=== PATIENT | female | born 1950 | race Caucasian/White ===

== ENCOUNTER → 2017-11-08 09:46 | Outpatient (CLI) | payer MEDICARE, SELFPAY ==
--- NOTE | 2017-11-08 09:55 | CDU_ITS ---
Reason For Study: Carotid Stenosis Rt. Velocities/BP Lt. Velocities/BP Prox CCA 82/17 cm/sec. Prox CCA 108/32 cm/sec. Mid CCA 68/13 cm/sec. Mid CCA 80/33 cm/sec. Dist CCA 70/17 cm/sec. Dist CCA 180/63 cm/sec. Rt ICA: No Flow. Prox ICA 210/52 cm/sec. Prox ECA 107/25 cm/sec. Mid ICA 165/67 cm/sec. Rt. Vert. 21/8 cm/sec. Dist ICA 119/48 cm/sec. Lt. ICA/CCA = 2.62. Prox ECA 44/13 cm/sec. Lt. Vert. 116/34 cm/sec. Right Extracranial There is homogeneous, irregular atherosclerotic plaque noted in the right common carotid artery. There is heterogeneous, irregular atherosclerotic plaque noted in the right internal carotid artery. The right internal carotid artery is occluded. There is no significant atherosclerotic plaque noted in the right external carotid artery. Antegrade flow is noted in the right vertebral artery. Left Extracranial There is heterogeneous, smooth atherosclerotic plaque noted in the left common carotid artery. There is heterogeneous, irregular atherosclerotic plaque noted in the left internal carotid artery. There is heterogeneous, irregular atherosclerotic plaque noted in the left external carotid artery. Antegrade flow is noted in the left vertebral artery. Procedure Carotid Duplex 50020. Exam performed in department. Interpretation Summary Known occlusion right internal carotid artery. Patent right common carotid and external carotid arteries. 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 Ordering Physician: Kole Talavera Referring Physician: Fadia Gordon Performed By: Ally Winslow, KIRTI, RVT
== END ==
PROVIDERS: Family Provider Family Medicine; PCP Family Medicine; Visit Provider Surgery
DX: I65.29 Occlusion and stenosis of unspecified carotid artery (principal)
CPT/HCPCS: 93880

== ENCOUNTER → 2017-11-30 16:57 | Outpatient (CLI) | payer MEDICARE, SELFPAY ==
--- NOTE | 2017-11-30 16:57 | DT_ITS ---
This patient was seen during an EMR downtime November 29, 2017 - December 06, 2017. This patient may have a combination of paper and electronic documentation or all paper documentation. All documentation is viewable within the e-chart portion of [facility] for each patient visit.
[2017-12-07 18:02] LABS: AST(SGOT) 17 U/L (15-37); Alanine Aminotransfer ALT/SGPT 21 U/L (13-56); BUN 16 mg/dL (7-18); Calcium,Total 9.5 mg/dL (8.5-10.1); Cholesterol 149 mg/dL (200); Creatinine, Serum 0.89 mg/dL (0.55-1.02); EST Glomerular Filtration Rate 67 mL/min (>60); Est Glom Filt Rate - Afr Amer 81 mL/min (>60); Glucose 96 mg/dL (74-106)
[2017-12-07 18:03] LABS: Anion Gap 5 (5-15); Chloride 102 mmol/L (98-107); High Density Lipoprotein 56 mg/dL; Potassium 3.9 mmol/L (3.5-5.1); Sodium Level 138 mmol/L (136-145); Triglycerides 130 mg/dL; Very Low Density Lipoprotein 26 mg/dL (5-40)
== END ==
LOC: MTLAB 12-04 08:06 → MFPLAB 12-04 16:46
PROVIDERS: Family Provider Family Medicine; PCP Family Medicine; Visit Provider Family Medicine
DX: I10 Essential (primary) hypertension (principal); E78.5 Hyperlipidemia, unspecified
CPT/HCPCS: 36415; 80048; 80061; 84450; 84460

== ENCOUNTER → 2017-12-01 16:26 | Outpatient (CLI) | payer MEDICARE, SELFPAY ==
--- NOTE | 2017-12-01 16:26 | DT_ITS ---
This patient was seen during an EMR downtime November 29, 2017 - December 06, 2017. This patient may have a combination of paper and electronic documentation or all paper documentation. All documentation is viewable within the e-chart portion of [facility] for each patient visit.
--- NOTE | 2017-12-01 16:30 | CT_ITS ---
STUDY: CTA NECK WITH CONTRAST REASON FOR EXAM: Female, 67 years old. Carotid stenosis RADIATION DOSAGE (If Supplied By Facility): CTDIvol = ( 16.94 ) mGy, DLP = ( 556.32 ) mGycm TECHNIQUE: CT angiography with multi-detector data acquisition was performed from the aortic arch to the skull base following intravenous administration of 100ML ml of Isovue 370 contrast. MIP images were reconstructed from the axial data set. Post-processing of the angiographic images was performed, with multiplanar reformation and 3D reconstruction. Individualized dose optimization techniques were used for this CT. COMPARISON: There are no available comparison studies at this time. Images from July 26, 2012 are still unavailable.. FINDINGS: AORTIC ARCH: Normal visualized aortic arch. Normal origins of the brachiocephalic, left common carotid, and left subclavian arteries. RIGHT CAROTID ARTERIES: Normal right common carotid artery (CCA). Normal right common carotid bulb. There is occlusion of the carotid artery just distal to the bifurcation. There is no contrast within the cervical portion of the right internal carotid artery. There is no visualized contrast within the petrous carotid artery or within the right cavernous carotid artery. There is contrast within the right side A1 segment and MCA artery. There is vague demonstration of a right-sided P-comm. Normal origin of the right external carotid artery (ECA). LEFT CAROTID ARTERIES : There is plaque formation within the left distal common carotid artery. There is moderate focal narrowing. There is partial thrombosis of the left external carotid artery at the carotid bulb. Normal origin of the left internal carotid (ICA) artery without a hemodynamically significant stenosis. Normal there is visualized contrast within the left side cavernous carotid arteries minimal plaque formation. The bilateral posterior communicating arteries are not well visualized. There is a suggestion of a hypoplastic right-sided P-comm. Visualized cervical portion of the left internal carotid artery. There is a diminutive appearance of the left side ECA. VERTEBRAL ARTERIES: Normal bilateral vertebral arteries. The basilar artery is noted of normal caliber and enhancing. The bilateral superior cerebellar arteries and posterior communicating arteries appear patent. CT/CTA Neck W/WO Contrast IMPRESSION: The prior studies are unavailable. On prior report CTA neck July 26, 2012, greater than 70% stenosis was described in the right side. Now there is Occlusion of the right internal carotid artery just distal to the bifurcation. Nonvisualization of contrast within the right internal carotid artery cervical carotid artery petrous carotid artery and right cavernous carotid artery. There is reconstitution of the right side A1 segment. There is a diminutive P-comm. Recommend consideration for follow-up MRI/MRA of the brain. Findings are suspicious for less than 50% stenosis of the distal left common carotid artery near the carotid bulb. Recommend follow-up ultrasound. Diminutive left external carotid artery N.B. : The above information has been verbally conveyed by Alaina Pearson MD to Dr Siddiqui, Covering Physician, on 12/04/2017 17:48:50 (ET). Electronically Signed: Alaina Pearson MD at 17:12 EDT Tel , Service support , N.B. : The above information has been verbally conveyed by Alaina Pearson MD to Dr Siddiqui, Covering Physician, on 12/04/2017 17:48:50 (ET).
== END ==
PROVIDERS: Family Provider Family Medicine; PCP Family Medicine; Visit Provider Surgery
DX: I65.21 Occlusion and stenosis of right carotid artery (principal)
CPT/HCPCS: 70498; Q9967

== ENCOUNTER → 2018-01-17 15:35 | Outpatient (CLI) | payer MEDICARE, SELFPAY ==
--- NOTE | 2018-01-17 15:43 | BI_ITS ---
MAMMOGRAPHY - BILATERAL SCREENING 3-D MERY SYNTHESIS REASON FOR EXAM: Female, 67 years old. Bilateral Screening 3-D tomosynthesis PERTINENT HISTORY: No significant family history. TECHNIQUE: 2-D mammograms and 3-D Mery synthesis of the breast (s) were performed. CAD was performed. COMPARISON: 12/31/2015 FINDINGS: The breast composition is almost entirely fat. Scattered benign calcifications are seen. No dense spiculated masses or suspicious microcalcifications are identified. No architectural distortion is identified. There is no skin thickening or retraction. There has been no significant change since the prior study. BI/SCREENING MAMM (CAD), BILAT IMPRESSION: No mammographic signs of malignancy. Routine yearly mammograms recommended. ASSESSMENT CATEGORY: BIRADS Category 1: Negative. A letter regarding these results will be sent to the patient by the facility within 30 days. FOLLOW UP RECOMMENDATION: Yearly follow up mammogram recommended. (A) Approximately 10% of breast cancers are not detected by mammography. A normal mammogram should not delay biopsy of a clinically suspicious abnormality. Electronically Signed: Miguel Fam MD at 8:38 EDT , Service support ,
== END ==
PROVIDERS: Family Provider Family Medicine; PCP Family Medicine; Visit Provider Family Medicine
DX: Z00.00 Encounter for general adult medical examination without abnormal findings (principal); Z12.31 Encounter for screening mammogram for malignant neoplasm of breast
CPT/HCPCS: 77063; 77067

== ENCOUNTER → 2018-06-08 09:50 | Outpatient (CLI) | payer MEDICARE, SELFPAY ==
[2018-05-12 09:43] VITALS: BMI 31.1
--- NOTE | 2018-06-08 09:53 | CDU_ITS ---
Reason For Study: Carotid Stenosis Rt. Velocities/BP Lt. Velocities/BP Prox CCA 75/19.9 cm/sec. Prox CCA 58.6/18.8 cm/sec. Mid CCA 65.7/15.8 cm/sec. Mid CCA 68.6/24.6 cm/sec. Dist CCA 74.5/22.9 cm/sec. Dist CCA 181/52.4 cm/sec. Right ICA: No Flow. Prox ICA 194/58.9 cm/sec. Prox ECA 135/27.5 cm/sec. Mid ICA 148/58.9 cm/sec. Rt. Vert. 29.3/8.57 cm/sec. Dist ICA 69.2/31.7 cm/sec. Lt. ICA/CCA = 2.83. Prox ECA 62.9/22 cm/sec. Lt. Vert. 104/35.4 cm/sec. Right Extracranial There is homogeneous, irregular atherosclerotic plaque noted in the right common carotid artery. There is heterogeneous, irregular atherosclerotic plaque noted in the right internal carotid artery. The right internal carotid artery is occluded. There is intimal thickening but no significant atherosclerotic plaque noted in the right external carotid artery. Antegrade flow is noted in the right vertebral artery. Left Extracranial There is heterogeneous, smooth atherosclerotic plaque noted in the left common carotid artery. There is heterogeneous, smooth atherosclerotic plaque noted in the left internal carotid artery. There is heterogeneous, irregular atherosclerotic plaque noted in the left external carotid artery. Antegrade flow is noted in the left vertebral artery. Procedure Carotid Duplex [id number]. Exam performed in department. Interpretation Summary Patent post-operative right carotid bulb but with occluded right internal carotid. Normal flow right external carotid Moderate plague at the proximal left internal carotid with 50-69% stenosis. Normal flow left external carotid Patent and antegrade right vertebral Elevated velocity left vertebral Findings are not changed from 11/08/17 Ordering Physician: Kole Talavera Referring Physician: Fadia Gordon M.D. Performed By: Xochitl KIRTI, LINDA, Tierney and Student
--- OUTSIDE RECORDS SUMMARY | 2018-07-25 08:42 | XMS RPT_ITS ---
:1950 Author Organization [facility] Support Name Relationship Address Phone ELYSE DOTSON [address] + [place] [address] R Unavailable Unavailable Unavailable CHERELLE KRISHNA Unavailable [address] + [place] [address] ELYSE DOTSON Unavailable [address] + [place] [address] R Unavailable Unavailable Unavailable CHERELLE KRISHNA Unavailable [address] + [place] [address] ELYSE DOTSON Unavailable [address] + [place] [address] R Unavailable Unavailable Unavailable CHERELLE KRISHNA Unavailable [address] + [place] [address] ELYSE DOTSON Unavailable [address] + [place] [address] R Unavailable Unavailable Unavailable CHERELLE KRISHNA Unavailable [address] + [place] [address] ELYSE DOTSON Unavailable [address] + [place] [address] R Unavailable Unavailable Unavailable CHERELLE KRISHNA Unavailable [address] [phone] [place] [address] ELYSE DOTSON Unavailable [address] + [place] [address] R Unavailable Unavailable Unavailable CHERELLE KRISHNA Unavailable [address] [phone] [place] [address] ELYSE DOTSON Unavailable [address] + [place] [address] R Unavailable Unavailable Unavailable TOMI, CHERELLE Unavailable [address] + [place] [address] ELYSE DOTSON Unavailable [address] + [place] [address] R Unavailable Unavailable Unavailable FARAZBAUNIQUE, CHERELLE Unavailable [address] + [place] [address] ELYSE DOTSON Unavailable [address] + [place] [address] R Unavailable Unavailable Unavailable TOMI, CHERELLE Unavailable [address] + [place] [address] ELYSE DOTSON Unavailable [address] + [place] [address] R Unavailable Unavailable Unavailable TOMI, CHERELLE Unavailable [address] [phone] [place] [address] ELYSE DOTSON Unavailable [address] + [place] [address] R Unavailable Unavailable Unavailable FARAZBAUNIQUE, CHERELLE Unavailable [address] + [place] [address] Care Team Providers Name Role Phone Kole Talavera Attending Unavailable CebulKole Referring Unavailable Jolliff, Fadia Primary Care Unavailable CebulKole Attending Unavailable Cebul Kole Referring Unavailable Jolliff, Fadia Primary Care Unavailable CebulKole Consulting Unavailable CebulKole Attending Unavailable Cebul Kole Referring Unavailable Jolliff, Fadia Primary Care Unavailable Sylvia Michael Attending Unavailable Jolliff, Fadia Referring Unavailable Jolliff, Fadia Attending Unavailable Jolliff, Fadia Primary Care Unavailable CebulKole Attending Unavailable Jolliff, Fadia Referring Unavailable Cebul, Kole Attending Unavailable Jolliff, Fadia Referring Unavailable Jolliff, Fadia Attending Unavailable Jolliff, Fadia Primary Care Unavailable CebulKole Attending Unavailable Cebul, Kole Referring Unavailable Jolliff, Fadia Primary Care Unavailable Cebul, Kole Attending Unavailable Cebul, Kole Attending Unavailable Jolliff, Fadia Referring Unavailable Jolliff, Fadia Primary Care Unavailable PROBLEMS PROBLEMS DATE TYPE CONDITION / CODE ATTENDING STATUS SOURCE 06/08/2018 Unknown I65.23 - Occlusion Kole Talavera and stenosis of [facility] bilateral carotid Hospital arteries / Repository I65.23(ICD-10) 06/08/2018 Unknown Z98.62 - Kole Talavera Active [place] Peripheral [facility] vascular Hospital angioplasty status Repository / Z98.62(ICD-10) 01/18/2018 Unknown Z12.31 - Encounter Nicoleannette Fadia Benitez for screening [facility] mammogram for Hospital malignant neoplasm Repository of breast / Z12.31(ICD-10) 12/22/2017 Unknown I65.21 - Occlusion Kole Talavera Active [facility] and stenosis of [facility] right carotid Hospital artery / Repository I65.21(ICD-10) 12/22/2017 Unknown I10 - Essential Fadia Gordon Active [facility] (primary) Community hypertension / Hospital I10(ICD-10) Repository 04/07/2018 Unknown I65.29 - Occlusion Kole Talavera Active [place] and stenosis of [facility] unspecified Hospital carotid artery / Repository I65.29(ICD-10) PROCEDURES PROCEDURES No Procedure Records FoundRESULTS RESULTS CAROTID DUPLEX Observed: 06/08/2018 Status: F Source: [facility] ULTRASOUND 5:06 PM [facility] REPOSITORY [facility] Cardiovascular Services [address] [place] [address] Carotid Duplex Ultrasound 06/08/18 0956 MR#: [id number] Acct: [id number] Name: CELENA KRISHNA Rep #: [id number] : 1950 68 From: Kole Talavera MD Attending Dr: Kole Talavera MD Status: REG CLI Ordering Dr: Kole Talavera MD Date: 06/08/18 Location: [facility] Sex: F C Admitted: Reason For Study: Carotid Stenosis Rt. Velocities/BP Lt. Velocities/BP Prox CCA 75/19.9 cm/sec. Prox CCA 58.6/18.8 cm/sec. Mid CCA 65.7/15.8 cm/sec. Mid CCA 68.6/24.6 cm/sec. Dist CCA 74.5/22.9 cm/sec. Dist CCA 181/52.4 cm/sec. Right ICA: No Flow. Prox ICA 194/58.9 cm/sec. Prox ECA 135/27.5 cm/sec. Mid ICA 148/58.9 cm/sec. Rt. Vert. 29.3/8.57 cm/sec. Dist ICA 69.2/31.7 cm/sec. Lt. ICA/CCA = 2.83. Prox ECA 62.9/22 cm/sec. Lt. Vert. 104/35.4 cm/sec. Right Extracranial There is homogeneous, irregular atherosclerotic plaque noted in the right common carotid artery. There is heterogeneous, irregular atherosclerotic plaque noted in the right internal carotid artery. The right internal carotid artery is occluded. There is intimal thickening but no significant atherosclerotic plaque noted in the right external carotid artery. Antegrade flow is noted in the right vertebral artery. Left Extracranial There is heterogeneous, smooth atherosclerotic plaque noted in the left common carotid artery. There is heterogeneous, smooth atherosclerotic plaque noted in the left internal carotid artery. There is heterogeneous, irregular atherosclerotic plaque noted in the left external carotid artery. Antegrade flow is noted in the left vertebral artery. Procedure Carotid Duplex 69176. Exam performed in department. Interpretation Summary Patent post-operative right carotid bulb but with occluded right internal carotid. Normal flow right external carotid Moderate plague at the proximal left internal carotid with 50-69% stenosis. Normal flow left external carotid Patent and antegrade right vertebral Elevated velocity left vertebral Findings are not changed from 11/08/17 Ordering Physician: Kole Talavera Referring Physician: Fadia Gordon M.D. Performed By: Xochitl COTTO RVT, Carrie and Student 06/08/18 1705 Date Kole Talavera MD CC: Fadia Gordon MD; Kole Talavera MD Date Dictated: 06/08/18 0956 Date Transcribed: 06/08/181704 Tape Maker: Signed CARDIOLOGY VISIT Observed: 05/12/2018 Status: F Source: [facility] REPORT 11:09 AM [facility] REPOSITORY [facility] [address] [place] [address] OFFICE VISIT Date of Service: 05/12/18 MR#: [id number] Acct: [id number] Name: CELENA KRISHNA Rep #: [id number] : 1950 Provider: Michael Ward MD Age/Sex: 68/F Location: [facility] Status: Signed HPI HPI Chief Complaint: Follow-up visit. Details: CELENA KRISHNA, is a 68 F who presents to the office today for a follow-up visit. She is a lady with a history of hypertension, peripheral vascular disease status post right carotid endarterectomy who returns for a yearly follow-up visit. She denies any chest pain or shortness breath or paroxysmal nocturnal dyspnea pedal edema she has had no neck arm or jaw discomfort suggest angina. She has been compliant with all her medications. She tells me that she just saw the vascular surgeon recently and an ultrasound of her carotids were performed. Her physical exam demonstrates clear lung lopez regular rate and rhythm and no pedal edema. Intake Vital Signs05/12/18 Height 5 ft 2 in 05/12/18 Weight: 170 lb 05/12/18 Body Mass Index (BMI) 31.1 05/12/18 Blood Pressure 142/82 H 05/12/18 Blood Pressure Location Lt brachial Intake Visit Reasons: 1 Y FU Boatswains Mate Required: No Accompanied by: None Is patient in pain?: No Allergies No Known Allergies Allergy (Verified 05/12/18 09:45) Medications amlodipine 10 mg tablet 10 mg PO QDAY 11/18/17 [History Confirmed 05/12/18] lisinopril 40 mg tablet 40 mg PO QDAY 11/18/17 [History Confirmed 05/12/18] metoprolol succinate ER 50 mg tablet,extended release 24 hr 50 mg PO QDAY 11/18/17 [History Confirmed 05/12/18] aspirin 81 mg tablet,delayed release 81 mg PO BID tab 05/12/18 [History Confirmed 05/12/18] atorvastatin 40 mg tablet 40 mg PO DAILY 05/12/18 [History Confirmed 05/12/18] metformin 500 mg tablet 500 mg PO DAILY tab 05/12/18 [History Confirmed 05/12/18] multivitamin tablet 1 tab PO DAILY 05/12/18 [History Confirmed 05/12/18] PFSH Medical History HLD (hyperlipidemia) (Chronic) Essential (primary) hypertension (Chronic) Bilateral carotid artery stenosis (Resolved) Surgical History H/O tubal ligation (Resolved) Hx of carotid angioplasty (Resolved) Family History Father CAD (coronary artery disease) COPD (chronic obstructive pulmonary disease) Mother CVA (cerebral vascular accident) Hypertension Social History Smoking Status: Never smoker ROS Const Const: Negative for fatigue, weakness, night sweats, excessive sweating, frequent falls, headache(s) or daytime sleepiness Eyes Eyes: Negative for loss of peripheral vision, transient loss of vision, blind spots, double vision or blurry vision ENT ENT: Negative for headache(s), dizziness, balance problems, Nosebleed/epistaxis, tongue swelling or lip swelling Cardio Chest Pain: No Palpitations: No Edema: None Muscle aches with walking: None Resp Respiratory: Negative for SOB at rest, SOB orthopnea\SOB lying down, Cough, paroxysmal nocturnal dyspnea or SOB with activity GI GI: Negative nausea, vomiting, heartburn, black,tarry stools or bright, red blood in stools : Negative for hematuria Musc Musc: Negative for balance problems, muscle aches/ myalgia, muscle weakness or joint pain Skin Skin: Negative non-healing lesions, unusual bruising or rash Neuro Neuro: Negative for weakness, frequent falls, headache(s), double vision, dizziness, lightheadedness, orthostatic symptoms, blurry vision or lack of coordination [place] Hematologic/Lymphatic: Negative for easy bruising or easy bleeding Endo Endo: Negative for fatigue, excessive sweating, cold intolerance, heat intolerance, increased thirst/drinking or hair loss Psych Psych: Negative for anxiety or depression Allergy Allergy/Immunology: Negative for throat swelling, Negative for tongue swelling, Negative for hives, Negative for rash, Negative for lip swelling Cardiology Exam Const Appearance: cooperative, healthy appearing, well developed, well groomed and no acute distress Nutritional Appearance: well nourished and average body habitus Orientation: alert, awake and oriented x3 Head Head: normal to inspection, normocephalic and atraumatic Ears: hearing grossly normal bilaterally and external ears normal Nose: external nose normal, nasal mucous membranes and turbinates normal, nares normal, septum normal, no nasal discharge Face and Sinus: face symmetric Mouth: oral mucosae normal, tongue normal, oropharynx normal and moist mucous membranes Teeth and gingiva: dentition normal Throat: posterior oropharynx normal, tonsils normal and uvula midline Eyes General: appearance normal, both eyes and all related structures Eyelids: eyelids normal Conjunctivae: conjunctivae normal Pupils: PERRL, normal by confrontation and accommodation normal EOM: EOM intact bilaterally Neck Neck: normal visual inspection, trachea midline and no JVD JVD: +5 Carotids: normal carotid upstroke and bounding pulses Chest Chest inspection: normal inspection of the chest, symmetric chest movement and normal respiratory effort Auscultation: Bilateral: Clear to Auscultation Cardio Palpation: normal PMI Rate: regular rate Rhythm: regular rhythm Heart sounds: S1 normal, S2 normal and normal, physiologic split S2; negative rub, gallop or murmur GI GI: normal to inspection, soft, no hepatosplenomegaly and bowel sounds present Neuro General: alert, awake, oriented x3, no focal sensory deficit, gait normal and moves all extremities Skin Skin: no rashes or lesions noted Extremities Pulses: Normal: Right Femoral Pulse, Left Femoral Pulse, Right Dorsalis Pedis Pulse, Left Dorsalis Pedis Pulse, Right Posterior Tibial Pulse, Left Posterior Tibial Pulse, Right Radial Pulse, Left Radial Pulse Lower Extremity Edema: None: Bilateral Musculoskel Musculoskeletal: No joint tenderness Psych Psychological: normal affect Assessment AND Plan 1. Hx of carotid angioplasty Z98.62 Plan She does have a history of carotid disease and is status post surgery of the above. The recommendation will be for her to continue with yearly follow- up visits with the vascular surgeon. She will remain on lipid lowering therapy due to her underlying pathology. 2. Essential (primary) hypertension I10 Plan She does have a history of hypertension and her blood pressure appears to be under good control on the current medical therapy. She will remain on the amlodipine the lisinopril as well as the beta-maurice. 3. HLD (hyperlipidemia) E78.5 Plan She does have a history of hyperlipidemia. She is on high intensity statin. Her most recent lipid profile demonstrated a total cholesterol 149, LDL 67 and HDL of 56. No other changes will be made. I will continue to see her on a yearly visit. 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 3:43 PM [facility] REPOSITORY [facility] Imaging Services [address] [place] [id number] SCREENING MAMM (CAD), BILAT MR#: [id number] Acct: [id number] Name: CELENA KRISHNA Rep #: [id number] : 1950 F 67 From: Thomas Fam MD PCP: Fadia Gordon MD Status: [facility] Study: SCREENING MAMM (CAD), BILAT Date of Exam: 01/17/18 Exam# [id number] Ordering Dr: Fadia Gordon MD MAMMOGRAPHY - BILATERAL SCREENING 3-D SMITH SYNTHESIS REASON FOR EXAM: Female, 67 years old. Bilateral Screening 3-D tomosynthesis PERTINENT HISTORY: No significant family history. TECHNIQUE: 2-D mammograms and 3-D Smith synthesis of the breast (s) were performed. CAD was performed. COMPARISON: 12/31/2015 FINDINGS: The breast composition is almost entirely fat. Scattered benign calcifications are seen. No dense spiculated masses or suspicious microcalcifications are identified. No architectural distortion is identified. There is no skin thickening or retraction. There has been no significant change since the prior study. BI/SCREENING MAMM (CAD), BILAT IMPRESSION: No mammographic signs of malignancy. Routine yearly mammograms recommended. ASSESSMENT CATEGORY: BIRADS Category 1: Negative. A letter regarding these results will be sent to the patient by the facility within 30 days. FOLLOW UP RECOMMENDATION: Yearly follow up mammogram recommended. (A) Approximately 10% of breast cancers are not detected by mammography. A normal mammogram should not delay biopsy of a clinically suspicious abnormality. Electronically Signed: Miguel Fam MD at 8:38 EDT , Service support , CC: Fadia Gordon MD Tape Maker: Signed DOWNTIME REPORT Observed: 12/16/2017 Status: F Source: [facility] 1:47 PM [facility] REPOSITORY [facility] Medical Records Department [address] [place] [address] Downtime Report MR#: [id number] Acct: [id number] Name: FARAZJESSICATHEODORE CALHOUNRinku Garnett Rep #: [id number] : 1950 67 From: Rick Wilson PCP: Fadia Gordon MD Status: REG CLI This patient was seen during an EMR downtime November 29, 2017 - December 06, 2017. This patient may have a combination of paper and electronic documentation or all paper documentation. All documentation is viewable within the e-chart portion of [employer] for each patient visit. DOWNTIME REPORT Observed: 12/16/2017 Status: F Source: [facility] 12:01 PM [facility] REPOSITORY [facility] Medical Records Department [address] [place] [address] Downtime Report MR#: [id number] Acct: [id number] Name: CELENA KRISHNA Rep #: [id number] : 1950 67 From: Rick Wilson PCP: Fadia Gordon MD Status: REG CLI This patient was seen during an EMR downtime November 29, 2017 - December 06, 2017. This patient may have a combination of paper and electronic documentation or all paper documentation. All documentation is viewable within the e-chart portion of [employer] for each patient visit. CTA NECK W/WO Observed: 12/02/2017 Status: F Source: [facility] CONTRAST 8:04 PM [facility] REPOSITORY [facility] Imaging Services [address] [place] [address] CTA Neck W/WO Contrast MR#: [id number] Acct: [id number] Name: CELENA KRISHNA Rep #: [id number] : 1950 F 67 From: Alaina Pearson MD PCP: Fadia Gordon MD Status: REG CLI Study: CTA Neck W/WO Contrast Date of Exam: 12/01/17 Exam# [id number] Ordering Dr: Kole Talavera MD STUDY: CTA NECK WITH CONTRAST REASON FOR EXAM: Female, 67 years old. Carotid stenosis RADIATION DOSAGE (If Supplied By Facility): CTDIvol = ( 16.94 ) mGy, DLP = ( 556.32 ) mGycm TECHNIQUE: CT angiography with multi-detector data acquisition was performed from the aortic arch to the skull base following intravenous administration of 100ML ml of Isovue 370 contrast. MIP images were reconstructed from the axial data set. Post-processing of the angiographic images was performed, with multiplanar reformation and 3D reconstruction. Individualized dose optimization techniques were used for this CT. COMPARISON: There are no available comparison studies at this time. Images from July 26, 2012 are still unavailable.. FINDINGS: AORTIC ARCH: Normal visualized aortic arch. Normal origins of the brachiocephalic, left common carotid, and left subclavian arteries. RIGHT CAROTID ARTERIES: Normal right common carotid artery (CCA). Normal right common carotid bulb. There is occlusion of the carotid artery just distal to the bifurcation. There is no contrast within the cervical portion of the right internal carotid artery. There is no visualized contrast within the petrous carotid artery or within the right cavernous carotid artery. There is contrast within the right side A1 segment and MCA artery. There is vague demonstration of a right-sided P-comm. Normal origin of the right external carotid artery (ECA). LEFT CAROTID ARTERIES : There is plaque formation within the left distal common carotid artery. There is moderate focal narrowing. There is partial thrombosis of the left external carotid artery at the carotid bulb. Normal origin of the left internal carotid (ICA) artery without a hemodynamically significant stenosis. Normal there is visualized contrast within the left side cavernous carotid arteries minimal plaque formation. The bilateral posterior communicating arteries are not well visualized. There is a suggestion of a hypoplastic right-sided P-comm. Visualized cervical portion of the left internal carotid artery. There is a diminutive appearance of the left side ECA. VERTEBRAL ARTERIES: Normal bilateral vertebral arteries. The basilar artery is noted of normal caliber and enhancing. The bilateral superior cerebellar arteries and posterior communicating arteries appear patent. CT/CTA Neck W/WO Contrast IMPRESSION: The prior studies are unavailable. On prior report CTA neck July 26, 2012, greater than 70% stenosis was described in the right side. Now there is Occlusion of the right internal carotid artery just distal to the bifurcation. Nonvisualization of contrast within the right internal carotid artery cervical carotid artery petrous carotid artery and right cavernous carotid artery. There is reconstitution of the right side A1 segment. There is a diminutive P-comm. Recommend consideration for follow-up MRI/MRA of the brain. Findings are suspicious for less than 50% stenosis of the distal left common carotid artery near the carotid bulb. Recommend follow-up ultrasound. Diminutive left external carotid artery N.B. : The above information has been verbally conveyed by Alaina Pearson MD to Dr Siddiqui, Covering Physician, on 12/04/2017 17:48:50 (ET). Electronically Signed: Alaina Pearson MD at 17:12 EDT Tel , Service support , N.B. : The above information has been verbally conveyed by Alaina Pearson MD to Dr Siddiqui, Covering Physician, on 12/04/2017 17:48:50 (ET). CC: Fadia Gordon MD; Kole Talavera MD Tape Maker: Signed BASIC METABOLIC Collected: 11/30/2017 Status: F Source: [facility] PROFILE (BMP) 4:57 PM [facility] REPOSITORY Order Comment: RESULT(S) PREVIOUSLY REPORTED ON MANUAL REQUISITION DURING DOWNTIME. TYPE CODE TESTS RESULT OUT OF RANGE REFERENCE UNITS LAB L501.0100 74-106 mg/dL Normal GLU 96 Result Comment: Please note revised GLUCOSE reference range effective 2017. LAB L501.1000 7-18 mg/dL Normal BUN 16 LAB L501.1100 0.55-1.02 mg/dL Normal CREAT,SERUM 0.89 Result Comment: The validity of the calculated GFR AND GFRAA in patients over 70 years has not been determined. Clinical correlation is essential. LAB L501.1110 >60 mL/min Normal EST GFR 67 LAB L501.1115 >60 mL/min Normal EST GFR - AA 81 LAB L501.1300 10-20 RATIO Normal BUN/CRE 18.0 LAB L501.2200 8.5-10.1 mg/dL Normal CA 9.5 LAB L501.5300 136-145 mmol/L Normal NA 138 LAB L501.5600 3.5-5.1 mmol/L Normal K 3.9 LAB L501.5900 98-107 mmol/L Normal CL 102 LAB L501.6100 21.0-32.0 mmol/L Normal CO2 31.0 LAB L501.6200 5-15 Normal GAP 5 Performed By: #### L500.2500, L500.4100, L501.4100, L501.4405 #### [facility] [address] [place], [address] LIPID PROFILE Collected: 11/30/2017 Status: F Source: [facility] 4:57 PM [facility] REPOSITORY Order Comment: RESULT(S) PREVIOUSLY REPORTED ON MANUAL REQUISITION DURING DOWNTIME. TYPE CODE TESTS RESULT OUT OF RANGE REFERENCE UNITS LAB L501.4900 200 mg/dL Normal CHOL 149 Result Comment: <200 mg/dL Desirable 200-240 mg/dL Borderline >240 mg/dL High Risk LAB L501.5000 mg/dL Normal TRIG 130 Result Comment: The drugs N-Acetylcysteine and Metamizole may falsely depress this assay. Serum Triglycerides Reference Interval Normal <150 mg/dL Borderline high 150 - 199 mg/dL High 200 - 499 mg/dL Very High > or = 500 mg/dL LAB L501.6400 mg/dL Normal HDL 56 Result Comment: The drugs N-Acetylcysteine and Metamizole may falsely depress this assay. Reference Range HDL <40 mg/dL Low HDL Cholesterol HDL >or= 60 mg/dL High HDL Cholesterol LAB L501.6500 0-130 mg/dL Normal LDL 67 LAB L501.6600 5-40 mg/dL Normal VLDL 26 Performed By: #### L500.2500, L500.4100, L501.4100, L501.4405 #### [facility] Laboratory [address] [place], [place], [id number] AST(SGOT) Collected: 11/30/2017 Status: F Source: [facility] 4:57 PM [facility] REPOSITORY Order Comment: RESULT(S) PREVIOUSLY REPORTED ON MANUAL REQUISITION DURING DOWNTIME. TYPE CODE TESTS RESULT OUT OF RANGE REFERENCE UNITS LAB L501.4100 15-37 U/L Normal AST 17 Performed By: #### L500.2500, L500.4100, L501.4100, L501.4405 #### [facility] [address] [place], [place], [id number] ALANINE AMINOTRANSFERAS Collected: 11/30/2017 Status: F Source: [facility] (SGPT) 4:57 PM [facility] REPOSITORY Order Comment: RESULT(S) PREVIOUSLY REPORTED ON MANUAL REQUISITION DURING DOWNTIME. TYPE CODE TESTS RESULT OUT OF RANGE REFERENCE UNITS LAB L501.4405 13-56 U/L Normal ALT 21 Performed By: #### L500.2500, L500.4100, L501.4100, L501.4405 #### [facility] [facility] [address] [place], [place], [address] SURGERY VISIT REPORT Observed: 11/18/2017 Status: F Source: [facility] 6:37 PM [facility] REPOSITORY [facility] [address] [place] [address] OFFICE VISIT Date of Service: 11/18/17 MR#: [id number] Acct: [id number] Name: CELENA KRISHNA Rep #: [id number] : 1950 Provider: Kole Talavera MD Age/Sex: 67/F Location: [facility] Status: Signed Intake Vital Signs11/18/17 Height 5 ft 2 in 11/18/17 Weight: 170 lb Intake Visit Reasons: carotid yearly Boatswains Mate Required: No Is patient in pain?: No Allergies No Known Allergies Allergy (Verified 11/18/17 16:06) Medications amlodipine 10 mg tablet 10 mg PO QDAY 11/18/17 [History Confirmed 11/18/17] aspirin 81 mg tablet,delayed release 81 mg PO QDAY 11/18/17 [History Confirmed 11/18/17] atorvastatin 20 mg tablet 20 mg PO QDAY 11/18/17 [History Confirmed 11/18/17] calcium carb-magnesium oxide-vit D3 400 mg-167 mg-133 unit tablet tab PO 11/18/17 [History Confirmed 11/18/17] lisinopril 40 mg tablet 40 mg PO QDAY 11/18/17 [History Confirmed 11/18/17] metoprolol succinate ER 50 mg tablet,extended release 24 hr 50 mg PO QDAY 11/18/17 [History Confirmed 11/18/17] omega-3 fatty acids 1,000 mg capsule 1,000 mg PO QDAY 11/18/17 [History Confirmed 11/18/17] PFSH Medical History Bilateral carotid artery stenosis (Acute) Surgical History Hx of carotid angioplasty (Acute) Social History Smoking Status: Never smoker HPI HPI HPI: CELENA KRISHNA, is a 67 F who presents to the office today for surgical follow-up and consultation regarding bilateral extracranial carotid artery occlusive disease. August 24, 2012 I performed a right carotid endarterectomy with bovine patch angioplasty because of critical stenosis of the right external and internal carotid arteries. My operative note states that there were 2 areas of stenosis within the right internal carotid. The right carotid bulb was relatively low. A #10 USCI style shunt was placed. The plaque was felt to be nicely feathered. Plaque was further secured with a 7-0 Prolene tacking suture. Patch angioplasty was performed. On July 02, 2012 peak systolic velocity within the right internal carotid was 123 cm/s. Peak systolic velocity in the left internal carotid distally was 140 cm/s. Updated then September 02, 2016 her right internal carotid was now found to be completely occluded. She had remained asymptomatic. The peak systolic velocity within the left internal carotid at that time was 146 cm/s. The patient is on a chronic statin medication. She takes a low-dose aspirin every other day. She has never been a tobacco user. Her mother had a CVA and hypertension. In addition to her primary care physician Dr. Fadia Gordon the patient annually sees Dr. Winston because of her previous cardiac arrhythmia. On November 08, 2017 at the [facility] carotid duplex imaging was obtained. The right internal carotid is noted to be occluded. The right common carotid is patent as is the external carotid. The maximal velocity now located within the proximal left internal carotid is 210 cm/s peak systolic flow with end-diastolic velocity of 52 cm/s. This is felt to be consistent with 50-69% stenosis likely closer to the 69% range. There is normal flow in the left external carotid. Patient remains asymptomatic Exam Const General: cooperative, healthy appearing, comfortable, no acute distress [facility] Head: normal to inspection Eyes General: appearance normal, both eyes and all related structures Neck Other: Well-healed surgical incision right neck with slightly hypertrophic scarring. Carotids are 2+ bilateral lower in the neck. Soft 1/6 bruit on the left. Chest Chest palpation AND inspection: normal inspection of the chest Resp Effort AND Inspection: normal respiratory effort Auscultation: clear to auscultation bilaterally Cardio Rate: regular rate Rhythm: regular rhythm GI Palpation: soft, no hepatosplenomegaly Musc Cervical Spine: normal cervical lordosis Skin General: no rashes or lesions noted Neuro General: CN's II-XI intact bilaterally Extrem General: normal to inspection, no calf tenderness Psych Affect: normal affect Assessment AND Plan Problems 1. Carotid stenosis, bilateral I65.23 Plan I have discussed treatment options with the patient. I strongly recommend to her CT angiogram of the carotids. The patient will then return for further discussion. If the CTA demonstrates clinically significant stenosis of the left internal carotid then she will be given options of ongoing medical treatment versus left carotid endarterectomy with patch angioplasty locally versus referral for consultation regarding carotid endarterectomy versus carotid artery stenting. She has had an opportunity to ask and have questions answered. Although anxious she is comfortable with this method of approach. I appreciate the ongoing opportunity of assisting with her surgical care. Cc: Dr. Fadia Talavera M.D., F.A.C.S. Orders Orders: Coding Level of Care Code Off vis,est,level 3 Diagnoses Carotid stenosis, bilateral I65.23 11/18/17 1837 <Electronically signed by Kole Talavera MD> Date Kole Talavera MD Cosigner Signature: Date (if applicable) CC: Fadia Gordon MD CAROTID DUPLEX Observed: 11/18/2017 Status: F Source: [facility] ULTRASOUND 9:59 AM [facility] REPOSITORY [facility] Cardiovascular Services [address] [place] [address] Carotid Duplex Ultrasound 11/08/17 0955 MR#: [id number] Acct: [id number] Name: CELENA KRISHNA Rep #: [id number] : 1950 67 From: Kole Talavera MD Attending Dr: Kole Talavera MD Status: REG CLI Ordering Dr: Kole Talavera MD Date: 11/08/17 Location: [facility] Sex: F C Admitted: Reason For Study: Carotid Stenosis Rt. Velocities/BP Lt. Velocities/BP Prox CCA 82/17 cm/sec. Prox CCA 108/32 cm/sec. Mid CCA 68/13 cm/sec. Mid CCA 80/33 cm/sec. Dist CCA 70/17 cm/sec. Dist CCA 180/63 cm/sec. Rt ICA: No Flow. Prox ICA 210/52 cm/sec. Prox ECA 107/25 cm/sec. Mid ICA 165/67 cm/sec. Rt. Vert. 21/8 cm/sec. Dist ICA 119/48 cm/sec. Lt. ICA/CCA = 2.62. Prox ECA 44/13 cm/sec. Lt. Vert. 116/34 cm/sec. Right Extracranial There is homogeneous, irregular atherosclerotic plaque noted in the right common carotid artery. There is heterogeneous, irregular atherosclerotic plaque noted in the right internal carotid artery. The right internal carotid artery is occluded. There is no significant atherosclerotic plaque noted in the right external carotid artery. Antegrade flow is noted in the right vertebral artery. Left Extracranial There is heterogeneous, smooth atherosclerotic plaque noted in the left common carotid artery. There is heterogeneous, irregular atherosclerotic plaque noted in the left internal carotid artery. There is heterogeneous, irregular atherosclerotic plaque noted in the left external carotid artery. Antegrade flow is noted in the left vertebral artery. Procedure Carotid Duplex 00055. Exam performed in department. Interpretation Summary Known occlusion right internal carotid artery. Patent right common carotid and external carotid arteries. 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 Ordering Physician: Kole Talavera Referring Physician: Fadia Gordon Performed By: Ally Winslow RDCS, RVT 11/18/17957 Date Kole Talavera MD CC: Fadia Gordon MD; Kole Talavera MD Date Dictated: 11/08/17954 Date Transcribed: 11/18/17957 Tape Maker: Signed ALLERGIES ALLERGIES DATE TYPE / CODE NAME / CODE REACTION SEVERITY SOURCE 05/12/2018 Drug No Known Unknown [facility] Allergy/4160 Allergies/F00 Hospital 72512(SNOMED [id number](RXNOR Repository CT) M) ENCOUNTERS ENCOUNTERS ADMIT/DISCHARGE ACCOUNT ADMITTING ENCOUNTER LOCATION SOURCE NUMBER CLASS 06/08/2018 [id number] Ambulatory BMSBuilding:B [place] 0 [facility] Repository 06/08/2018 [id number] Ambulatory [place] [facility] ing:[facility] Repository 05/12/2018/ [id number] Ambulatory BMSBuilding:B [place] 8 8 [facility] Repository 01/17/2018 [id number] Ambulatory [place] 2 [facility] ing:[facility] Repository 12/10/2017 [id number] Ambulatory BMSBuilding:B [place] 1 [facility] Repository 12/03/2017 [id number] Ambulatory BMSBuilding:B [place] 3 [facility] Repository 12/01/2017 [id number] Ambulatory [place] [facility] Hospital ing:CT Repository 11/30/2017 [id number] Ambulatory [place] [facility] Hospital ing:MFPLAB Repository 11/18/2017/ [id number] Ambulatory BMSBuilding:B [place] 8 8 [facility] Repository 11/18/2017 [id number] Ambulatory BMSBuilding:B [place] 7 [facility] Repository 11/08/2017 [id number] Ambulatory [place] [facility] 3 Critical access hospital Hospital ing:[facility] Repository PAYERS PAYERS ENCOUNTER GUARANTOR PAYER SUBSCRIBER SOURCE 06/08/2018 CELENA L Primary CELENA L Eli [id number] [place] Insurance:RAQUEL OLIVEROS: [facility]ly [facility]: [id number] [id number] Repository [address]Qek: 330 Date:1328-49-43OI [phone] (ZW) [id number] [place] [phone]: 06/08/2018 Secondary NOT GIVENUNK Eli Insurance:SELF PAY [facility] Number: Effective Repository Date:2018-06-08 06/08/2018 CELENA L Primary CELENA L [place] [id number] [place] Insurance:AETNA WOLBAUGHDOB: Community DORITAValeria OHFFMANN [facility] Number: [id number], [place] [id number] Repository [address]Eee: (330) Date:3744-44-60UX [phone] () [id number] [place] [phone]: 06/08/2018 Secondary NOT GIVENUNK [place] Insurance:SELF PAY [facility] Number: Effective Repository Date:2018-06-06 05/12/2018 CELENA L Primary CELENA L [place] [id number] [place] Insurance:AETNA WOLBAUGHDOB: [facility]ly [facility] Number: [id number], [place] [id number] Repository [address]Brw: (330) Date:2617-58-81UO [phone] () [id number] [place] [address]RY: 05/12/2018 Secondary NOT GIVENUNK Eli Insurance:SELF PAY [facility] Number: Effective Repository Date:2018-05-06 01/17/2018 CELENA L Primary CELENA L Eli [id number] [place] Insurance:AETNA WOLBAUGHDOB: [facility] TAHIRA [facility]Policy Number: [id number], [place] [id number] Repository [address]Eyv: 330) Date:3912-16-77BZ [phone] () [id number] [place] [address]RD: 01/17/2018 Secondary NOT GIVENUNK Eli Insurance:SELF PAY [facility] Number: Effective Repository Date:2018-01-03 12/10/2017 CELENA L Primary CELENA L Eli [id number] [place] Insurance:AETNA WOLBAUGHDOB: Community DORITA HOFFMANN MCRPolicy Number: [id number], [place] [id number] Repository [address]Diu: (330) Date:9271-46-09BF [phone] (HP) [id number] [address]HD: 12/10/2017 Secondary NOT GIVENUNK [place] Insurance:SELF PAY [facility] Number: Effective Repository Date:2017-12-08 12/03/2017 CELENA L Primary CELENA L [place] [id number] [place] Insurance:AULTCAREPol WOLBAUGHDOB: [facility] DORITA HOFFMANN icy Number: [id number], [place] [id number] Repository [address]Seg: (141) e Date:6427-56-05HQ [phone] () [address] [address]LI: 12/03/2017 Secondary CELENA L [place] Insurance:AETNA WOLBAUGHDOB: [facility] MCRPolicy Number: [id number] County Medical CenterHBVF194SGarecwejs Repository Date:3224-20-88MI [id number] [address]OQ: 12/03/2017 Tertiary NOT GIVENUNK [place] Insurance:SELF PAY [facility] Number: Effective Repository Date:2017-11-18 12/01/2017 CELENA L Primary CELENA L Eli [id number] [place] Insurance:AETNA WOLBAUGHDOB: Community DORITA HOFFMANN MCRPolicy Number: [id number], [place] [id number] Repository [address]Erp: (330) Date:4375-71-08FR [phone] (HP) [id number] [place] [address]OG: 12/01/2017 Secondary NOT GIVENUNK [place] Insurance:SELF PAY [facility] Number: Effective Repository Date:2017-11-18 11/30/2017 CELENA L Primary CELENA L Eli [id number] [place] Insurance:AETNA WOLBAUGHDOB: Community DORITA DRAPPLE MCRPolicy Number: [id number], [place] [id number] Repository [address]Ubo: (330) Date:4251-10-59BJ [phone] () [id number] [address]KJ: 11/30/2017 Secondary NOT GIVENUNK Eli Insurance:SELF PAY [facility] Number: Effective Repository Date:2017-11-30 11/18/2017 CELENA L Primary CELENA L Eli [id number] [place] Insurance:AETNA WOLBAUGHDOB: [facility] HospitalVal[facility] GAYTANAPPLE MCRPolicy Number: [id number], [place] [id number] Repository [address]Hbx: (330) Date:5561-94-60RA [phone] () [id number] [place] [address]XB: 11/18/2017 Secondary NOT GIVENUNK Eli Insurance:SELF PAY [facility] Number: Effective Repository Date:2017-11-16 11/18/2017 CELENA L Primary CELENA L Eli [id number] [place] Insurance:AETNA WOLBAUGHDOB: Community DORITA DRAPPLE MCRPolicy Number: [id number], [place] [id number] Repository [address]Woe: (330) Date:4162-20-59EP [phone] () [id number] [address]WC: 11/18/2017 Secondary NOT GIVENUNK [place] Insurance:SELF PAY [facility] Number: Effective Repository Date:2017-11-18 11/08/2017 CELENA L Primary CELENA L [place] [id number] [place] Insurance:AETNA WOLBAUGHDOB: Community DORITA DRAPPLE MCRPolicy Number: [id number], [place] [id number] Repository [address]Opf: (330) Date:2422-59-62TZ [phone] (NF) [id number] [place] [address]PV: 11/08/2017 Secondary NOT GIVENUNK [place] Insurance:SELF PAY [facility] Number: Effective Repository Date:2017-11-02
== END ==
PROVIDERS: Family Provider Family Medicine; PCP Family Medicine; Referring Provider Surgery; Visit Provider Surgery
DX: I65.23 Occlusion and stenosis of bilateral carotid arteries (principal); Z98.62 Peripheral vascular angioplasty status
CPT/HCPCS: 93880

== ENCOUNTER → 2018-12-07 | Outpatient (CLI) | payer MEDICARE, SELFPAY ==
[2018-05-12 09:43] VITALS: BMI 31.1
--- NOTE | 2018-12-07 08:12 | CDU_ITS ---
Reason For Study: CAROTID STENOSIS Rt. Velocities/BP Lt. Velocities/BP Prox CCA 82.0/18.1 cm/sec. Prox CCA 114.9/45.5 cm/sec. Mid CCA 63.8/15.5 cm/sec. Mid CCA 72.4/27.4 cm/sec. Dist CCA 83.3/19.4 cm/sec. Dist CCA 207.0/67.1 cm/sec. KNOWN ICA OCCLUSION. Prox ICA 184.1/56.8 cm/sec. Prox ECA 138.0/28.3 cm/sec. Mid ICA 168.1/59.3 cm/sec. Rt. Vert. 29.2/12.2 cm/sec. Dist ICA 109.4/38.2 cm/sec. Lt. ICA/CCA = 184.1/72.4=2.5. Prox ECA 47.1/12.2 cm/sec. Lt. Vert. 139.9/32.1 cm/sec. Right Extracranial There is homogeneous, smooth atherosclerotic plaque noted in the right common carotid artery. KNOWN OCCLUSION. There is intimal thickening but no significant atherosclerotic plaque noted in the right external carotid artery. Antegrade flow is noted in the right vertebral artery. Left Extracranial There is heterogeneous, smooth atherosclerotic plaque noted in the left common carotid artery. There is heterogeneous, irregular atherosclerotic plaque noted in the left internal carotid artery. There is heterogeneous, irregular atherosclerotic plaque noted in the left external carotid artery. Antegrade flow is noted in the left vertebral artery. There is heterogeneous, irregular atherosclerotic plaque noted in the left bulb. Procedure Carotid Duplex 16820. Exam performed in department. Interpretation Summary Persistent occlusion right internal carotid <50% stenosis right external carotid Irregular plague within the left internal and external carotids 50-69% stenosis left internal carotid closer to the upper levels of this range <50% stenosis left external carotid Antegrade right vertebral with lower flow >50% stenosis left vertebral No significant change from 06/08/18 Ordering Physician: Kole Talavera Referring Physician: Fadia Gordon Performed By: Hali Schuler RDCS, RVT
== END | disposition home or self-care (01) ==
PROVIDERS: Family Provider Family Medicine; PCP Family Medicine; Referring Provider Surgery; Visit Provider Surgery
DX: I65.23 Occlusion and stenosis of bilateral carotid arteries (principal)
CPT/HCPCS: 93880

== ENCOUNTER → 2019-05-30 16:33 | Outpatient (CLI) | payer MEDICARE, SELFPAY ==
[2019-05-16 07:25] VITALS: BMI 32.0
[2019-05-30 18:07] LABS: AST(SGOT) 17 U/L (15-37); Alanine Aminotransfer ALT/SGPT 27 U/L (13-56); Albumin, Serum 4.2 g/dL (3.2-5.0); Alkaline Phosphatase 126 U/L (45-117); Anion Gap 8 (5-15); BUN 16 mg/dL (7-18); BUN/Creat Ratio 19.4 RATIO (10-20); Calcium,Total 9.6 mg/dL (8.5-10.1); Chloride 101 mmol/L (98-107); Cholesterol 169 mg/dL (200); Creatinine, Serum 0.83 mg/dL (0.55-1.02); EST Glomerular Filtration Rate 73 mL/min (>60); Est Glom Filt Rate - Afr Amer 88 mL/min (>60); Glucose 116 mg/dL (74-106); High Density Lipoprotein 60 mg/dL; Potassium 3.6 mmol/L (3.5-5.1); Protein, Total 8.2 g/dL (6.4-8.2); Sodium Level 140 mmol/L (136-145); Triglycerides 163 mg/dL; Very Low Density Lipoprotein 33 mg/dL (5-40)
== END ==
PROVIDERS: Family Provider Family Medicine; PCP Family Medicine; Referring Provider Family Medicine; Visit Provider Family Medicine
DX: E11.9 Type 2 diabetes mellitus without complications (principal); I10 Essential (primary) hypertension; E78.5 Hyperlipidemia, unspecified
CPT/HCPCS: 36415; 80048; 80061; 80076

== ENCOUNTER → 2019-07-10 12:10 | Outpatient (CLI) | payer MEDICARE, SELFPAY ==
[2018-05-12 09:43] VITALS: BMI 31.1
[2019-05-16 07:25] VITALS: BMI 32.0
--- NOTE | 2019-07-10 12:14 | BI_ITS ---
MAMMOGRAPHY - BILATERAL SCREENING REASON FOR EXAM: Female, 69 years old. Routine annual screening examination. PERTINENT HISTORY: Non-contributory. TECHNIQUE: Digital bilateral breast mery (3D mammographic acquisition) in the CC and MLO projections. 2-D mediolateral oblique (MLO) and craniocaudad (CC) views of both breasts were obtained. CAD: Full Field Digital Mammography with Computer Added Detection was performed. COMPARISON: Comparison is made with prior study dated January 17, 2018 and December 31, 2015. FINDINGS: Breast Composition: There are scattered areas of fibroglandular density. There is a 1.1 cm x 0.8 cm asymmetrical density in the deep midportion of the left breast. Correlation with ultrasound is recommended. No other significant abnormalities are identified. BI/SCREEN MAMM (CAD) W/MERY BILAT IMPRESSION: 1.1 cm x 0.8 cm asymmetrical density in the deep midportion of the left breast as described. Correlation with ultrasound is recommended. ASSESSMENT CATEGORY: BIRADS Category 0: Incomplete. Need additional imaging evaluation. A letter regarding these results will be sent to the patient by the facility within 30 days. Approximately 10% of breast cancers are not detected by mammography. A normal mammogram should not delay biopsy of a clinically suspicious abnormality. [id number] Electronically Signed: Travis Persaud, at 13:32 EST , Service support ,
== END ==
PROVIDERS: Family Provider Family Medicine; PCP Family Medicine; Referring Provider Family Medicine; Visit Provider Family Medicine
DX: Z00.00 Encounter for general adult medical examination without abnormal findings (principal); Z12.31 Encounter for screening mammogram for malignant neoplasm of breast
CPT/HCPCS: 77063; 77067

== ENCOUNTER → 2019-07-11 09:45 | Outpatient (CLI) | payer MEDICARE, SELFPAY ==
[2019-05-16 07:25] VITALS: BMI 32.0
--- NOTE | 2019-07-11 09:48 | US_ITS ---
STUDY: ULTRASOUND BREAST - LEFT REASON FOR EXAM: Female, 69 years old. Abnormal screening mammogram. TECHNIQUE: Axial and longitudinal images of the LEFT breast were performed with a high resolution ultrasound transducer. # OF IMAGES: 90 COMPARISON: Comparison is made with prior mammogram dated July 10, 2019. FINDINGS: LEFT Breast: The retroareolar region as well as the inner quadrant of the left breast was examined by ultrasound. No sonographic abnormality is seen. Additional mammographic views will be obtained. US/Breast Limited Unilateral IMPRESSION: No sonographic abnormality is seen. Additional mammographic views will be obtained. ASSESSMENT CATEGORY: BIRADS Category 0: Incomplete. Need additional imaging evaluation. A letter regarding these results will be sent to the patient by the facility within 30 days. Electronically Signed: Travis Persaud, at 10:09 EST , Service support ,
--- NOTE | 2019-07-11 11:12 | BI_ITS ---
MAMMOGRAPHY - UNILATERAL DIAGNOSTIC: LEFT BREAST REASON FOR EXAM: Female, 69 years old. Asymmetrical density in the left breast. PERTINENT HISTORY: TECHNIQUE: Compression spot views of the left breast in the mediolateral oblique and craniocaudad views were obtained. CAD: Full Field Digital Mammography with Computer Added Detection was performed. COMPARISON: Comparison is made with the prior mammogram dated January 17, 2018 and July 10, 2019. FINDINGS: Breast Composition: There are scattered areas of fibroglandular density. Persistent 1.1 cm x 0.8 cm density in the deep central portion of the breast. The ultrasound did not show any abnormality. A biopsy is recommended for further evaluation. No other significant abnormalities are identified. BI/DIAG MAMM W/CAD, UNILAT IMPRESSION: Persistent asymmetrical density in the deep midportion of the left breast as described. Targeted biopsy is recommended. ASSESSMENT CATEGORY: BIRADS Category 4: Suspicious - Biopsy Should Be Considered. A letter regarding these results will be sent to the patient by the facility within 30 days. Approximately 10% of breast cancers are not detected by mammography. A normal mammogram should not delay biopsy of a clinically suspicious abnormality. Electronically Signed: Travis Persaud, at 12:33 EST , Service support ,
== END ==
PROVIDERS: Family Provider Family Medicine; PCP Family Medicine; Referring Provider Family Medicine; Visit Provider Family Medicine
DX: N64.89 Other specified disorders of breast (principal)
CPT/HCPCS: 76642; 77065

== ENCOUNTER → 2019-07-20 12:01 | Outpatient (CLI) | payer MEDICARE, SELFPAY ==
--- NOTE | 2019-07-14 03:28 | HP_ITS ---
Intake Vital Signs 07/14/19 Height 5 ft 2 in 07/14/19 Weight: 179 lb 07/14/19 BMI 32.7 07/14/19 BP 160/87 H 07/14/19 Blood Pressure Location Rt brachial 07/14/19 Position Sitting 07/14/19 Respiration 16 Intake Visit Reasons: Left Breast Birads 4 Chief Complaint: Follow-up visit. 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 Is patient in pain?: No Allergies No Known Allergies Allergy (Verified 07/14/19 14:06) Medications amlodipine 10 mg tablet 10 mg PO QDAY 11/18/17 [History Confirmed 07/14/19] lisinopril 40 mg tablet 40 mg PO QDAY 11/18/17 [History Confirmed 07/14/19] metoprolol succinate 50 mg tablet,extended release 24 hr 50 mg PO QDAY 11/18/17 [History Confirmed 07/14/19] aspirin 81 mg tablet,delayed release 81 mg PO BID tab 05/12/18 [History Confirmed 07/14/19] atorvastatin 40 mg tablet 40 mg PO DAILY 05/12/18 [History Confirmed 07/14/19] metformin 500 mg tablet 500 mg PO DAILY tab 05/12/18 [History Confirmed 07/14/19] multivitamin 1 tab PO DAILY 05/12/18 [History Confirmed 07/14/19] PFSH Medical History Bilateral carotid artery stenosis (Resolved) Essential (primary) hypertension (Chronic) HLD (hyperlipidemia) (Chronic) Obesity (Chronic) Type 2 diabetes mellitus (Chronic) Surgical History H/O tubal ligation (Resolved) History of right-sided carotid endarterectomy (Resolved 2012) Family History Father CAD (coronary artery disease) COPD (chronic obstructive pulmonary disease) Mother CVA (cerebral vascular accident) Hypertension Social History (Updated 07/14/19 @ 15:28 by Kole Talavera MD) Smoking Status: Never smoker HPI HPI HPI: CELENA KRISHNA, is a 69 F who presents to the office today for HPI HPI Surgical H&P: Yes HPI: CELENA KRISHNA, is a 69 F who presents to the office today for surgical consultation regarding abnormal left breast mammogram. The patient is referred by her primary care physician Dr. Fadia Gordon and a written copy of my surgical consult and recommendations will be returned to her 69-year-old female. G2, . Menarche at age 14. First child was born when she was 27. Menopause somewhere between age 46 and 49. She did not breast- feed. No history of previous breast biopsies. No estrogen replacement. Family history is negative for breast cancer. At the [facility] on July 10, 2019 she had screening mammography. There was felt to be a 1.1 x 0.8 cm asymmetric density deep midportion left breast. BI-RADS Category 0. On July 11 2019 she had diagnostic left mammogram and left breast ultrasound. The diagnostic mammogram showed the persistent density. The ultrasound did not demonstrate a lesion. The patient has not been able to detect any clinical changes her self. It is of note that this area appears to been present on her previous mammogram of January 17, 2018. There is not a direct radiology comment regarding that It is pertinent that the patient has extracranial carotid artery occlusive disease. My note of January 17, 2019 reflects the following history 68F who presents to the office today for surgical follow-up and consultation regarding bilateral extracranial carotid artery occlusive disease. August 24, 2012 I performed a right carotid endarterectomy with bovine patch angioplasty because of critical stenosis of the right external and internal carotid arteries. My operative note states that there were 2 areas of stenosis within the right internal carotid. The right carotid bulb was relatively low. A #10 [employer] style shunt was placed. The plaque was felt to be nicely feathered. Plaque was further secured with a 7-0 Prolene tacking suture. Patch angioplasty was performed. On July 02, 2012 peak systolic velocity within the right internal carotid was 123 cm/s. Peak systolic velocity in the left internal carotid distally was 140 cm/s. Updated then September 02, 2016 her right internal carotid was now found to be completely occluded. She had remained asymptomatic. The peak systolic velocity within the left internal carotid at that time was 146 cm/s. The patient is on a chronic statin medication. She takes a low-dose aspirin every other day. She has never been a tobacco user. Her mother had a CVA and hypertension. In addition to her primary care physician Dr. Fadia Gordon the patient annually sees Dr. Winston because of her previous cardiac arrhythmia. On November 08, 2017 at the [facility] carotid duplex imaging was obtained. The right internal carotid is noted to be occluded. The right common carotid is patent as is the external carotid. The maximal velocity now located within the proximal left internal carotid is 210 cm/s peak systolic flow with end-diastolic velocity of 52 cm/s. This is felt to be consistent with 50-69% stenosis likely closer to the 69% range. There is normal flow in the left external carotid. Patient remains asymptomatic ROS General General: No weight change, appetite, fatigue, colon cancer or breast cancer HEENT HEENT: No difficulty swallowing, eye injury, eye surgery, swollen glands or hoarseness Endo Endocrine: No thyroid disease, diabetes mellitus, thyroid cancer, Hair loss, heat intolerance or cold intolerance Skin Skin: No rash or changing moles Breast Breast: No left breast lump, right breast lump, nipple discharge, breast pain, abnormal mammogram, abnormal US or breast enlargement Musc Musculoskeletal: No back problems, arthritis, rheumatoid arthritis, gout or joint pain Cardio Cardiovascular: Yes high blood pressure; no murmur, pacemaker, heart disease, atrial fibrillation, heart attack, heart stent, palpitations, shortness of breat with exertion or chest pain Psych Psychiatric: No depression, anxiety or hearing voices Resp Respiratory: No shortness of breath, No sleep apnea, No cough, No COPD, No asthma, No emphysema, No wheezing Gastro Gastrointestinal: No abdominal pain, No nausea or vomiting, No diarrhea, No constipation, No blood in stool, No acid reflux, No hemorrhoids, No ulcers, No gallbladder problem, No black,tarry stools [place] Hematologic: No blood thinners, No blood disorders, No bleeding, No anemia, No blood clots Exam Const General: cooperative, healthy appearing, comfortable Nutritional Appearance: overweight Orientation: alert, awake HENWA Head: normal to inspection Chest Breast Palpation: No nipple discharge Other: Right breast: No focal mass. No nipple discharge. No axillary or clavicular adenopathy Left breast: No focal mass. No nipple discharge. No axillary or clavicular adenopathy Resp Effort & Inspection: normal respiratory effort Auscultation: clear to auscultation bilaterally Cardio Rate: regular rate Rhythm: regular rhythm Heart Sounds: no murmurs GI Palpation: soft, no hepatosplenomegaly Auscultation: normal bowel sounds Neuro Cognition: normal cognition Extrem General: no calf tenderness bilaterally Psych Affect: normal affect Assessment & Plan Problems 1. Abnormal mammogram of left breast R92.8 Plan I am recommending the patient is stereotactic needle core biopsy deep upper left breast. With her present we have discussed the technique, benefit, risk, alternatives. She has had an opportunity to ask and have questions answered. I will have her hold her aspirin 3 days prior. The extracranial carotid artery occlusive disease has been referenced above. CC: Dr Fadia Talavera M.D., F.A.C.S. Coding Level of Care Code Off vis,est,level 3 Diagnoses Abnormal mammogram of left breast R92.8 07/14/19 1528 <Electronically signed by Kole gallegos MD> Date _ Kole Talavera MD I have re-examined the patient. There are no clinical changes since date of exam.
[2019-07-14 14:06] VITALS: BMI 32.0
--- NOTE | 2019-07-20 | IMM_PTH ---
PATIENT: CELENA KRISHNA LOC: [facility] U#:[id number] AGE/SX: 75/F ROOM: RE07/20/[address]: Dr. Kole Talavera MD : 1950 BED: DIS: SPEC #: [id number] RECD: 07/21/19 10:16 STATUS: LORRAINE REQ #: [id number] AYESHA: 07/20/19 00:[address]: Kole Talavera DEPT: IMMUNOHISTOCHEMISTRY RECD BY: Mariela Branch ENTERED: 07/21/19 10:17 SP TYPE: IMMUNO OTHR DR: Dr. Fadia Gordon MD Tissues: Left breast, NOS Procedures: CALPONIN-1 (add) CK8 (add) E-CAD (add) HER2 RADHA (add) HI (add) P40 (add) ER (initial) PHYSICIAN & INSTITUTION [place] [id number] SPECIMEN INFORMATION: Tissue Source: Left breast Clinical Info: Asymmetric density deep mid portion left breast Specimen Number: [id number] #1 & 2 CPT code: 69021, 40400 x5, 24633 x3 METHODOLOGY: Deparaffinized sections of prefer/formalin-fixed tissue or PAP/DQ stained slides are incubated with monoclonal/polyclonal antibodies/oligonucleotide probes. Localization is made via biotin free immunoperoxidase method. Appropriate controls are performed and reacted as expected. Results on target cell population are indicated in the following table: RESULTS: ANTIBODY / CLONE RESULT Block 1 P40 (BC28) positive Calponin-1 (HT780D) positive Block 2 E-Cad (ECH-6) positive CK8 (72ebenO17) positive Calponin-1 (OZ563B) positive P40 (BC28) positive MORPHOMETRIC ANALYSIS ER (clone 6F11) positive, >95%, strong intensity HI (clone 16/1E2) positive, >95%, strong intensity Her-2Neu (clone CB11) negative (0) The prognostic test for HER2 is performed on formalin-fixed paraffin embedded tissue. A 3+ (positive) staining pattern is defined as intense, homogeneous, complete, circumferential membranous staining in >10% of contiguous tumor cells. A similar weak (2+) staining pattern is interpreted as equivocal. [place] follow-up testing is recommended for all equivocal cases. Positivity/negativity for ER/HI is reported if > or < 1% of the tumor cells are immuno- reactive, respectively. The ASCO/CAP criteria is used for scoring. Reference: Journal of Clinical Oncology, 2013; 31:5040-9886 & 2010; 16:8240-3865. Duration of fixation: 7 Hrs; Sample Adequate: Yes. These assays have not been validated on decalcified tissues. Results should be interpreted with caution given the likelihood of false negativity on decalcified specimens. These tests were developed and their performance characteristics determined by [facility]. They may not have been cleared or approved by the U.S. Food and Drug Administration. The FDA has determined that such clearance or approval is not necessary. The above immunohistochemical/dualISH markers are ordered and reviewed by the Pathologist. 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 SJ:joanne 07/21/19 Case has been reviewed in consultation with Dr. Rothman who concurs with the above diagnosis. IDC:AM
--- NOTE | 2019-07-20 12:30 | BRBX_PTH ---
PATIENT: CELENA KRISHNA LOC: [facility] U#:[id number] AGE/SX: 75/F ROOM: RE07/20/[address]: Dr. Kole Talavera MD : 1950 BED: DIS: SPEC #: [id number] RECD: 07/20/19 13:20 STATUS: LORRAINE REAlden #: [id number] AYESHA: 07/20/19 12:[address]: Kole Talavera DEPT: SURGICAL PATHOLOGY RECD BY: Chriss Payne ENTERED: 07/20/19 14:04 SP TYPE: BREAST BX OTHR DR: Dr. Fadia Gordon MD Tissues: Left breast, NOS Procedures: Surgery Specimen Level IV HEADER OPERATION: Left breast stereotactic biopsy PRE-OP DIAGNOSIS: Asymmetric density deep mid portion left breast TISSUE SUBMITTED: Left breast ISCHEMIC TIME: 1 minute FIXATION TIME: 7 hours MICROSCOPIC DIAGNOSIS Left breast, deep mid portion, stereotactic core biopsy: Ductal carcinoma in situ with the following characteristics: Pattern - cribriform and papillary Nuclear Grade - 2 (intermediate) Necrosis - not identified Calcifications - not identified See comment. ALEENA:joanne 07/21/19 COMMENT Immunohistochemistry ([id number]) supports the above diagnosis. The hormone receptor studies ([id number]) will be reported separately. Case has been reviewed in consultation with Dr. Rothman who concurs with the above diagnosis. IDC:AM MICROSCOPIC DESCRIPTION Slides are reviewed. GROSS DESCRIPTION Received is one container labeled with the patient's name and not further designated. The specimen consists of multiple elongated fragments of mckinney-yellow fibroadipose tissue that in aggregate measure 6 x 3 x 0.3 cm. The entire specimen is submitted in three cassettes. / ALEENA:joanne 07/20/19 TC0 CPT: 91502
--- NOTE | 2019-07-20 12:44 | OP.PCM_ITS ---
Problem List (1) Abnormal mammogram of left breast Status: Acute Report of Operation Date of Procedure: 07/20/19 Pre-Operative Diagnosis: Vague density medial mid left breast Post-Operative Diagnosis: Same Surgery/Procedure Performed:: Stereotactic needle core left breast biopsy Description of Surgical Findings:: Timeout and informed consent was obtained. 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 digital information was obtained on a single target site the breast was prepped with Betadine 1% lidocaine was used as local anesthetic. A total of 10 cc was used. A small stab incision is created. 8 gauge resolved needle was advanced to prefire depth. Prefire films were obtained demonstrating adequate localization. 6 cores were obtained. Marking clip was left at 12 o'clock position. The specimens were immediately transferred to formalin. On fast view demonstrated the marking clip to be in good position. She was released from the device and pressure was held for hemostasis. Steri-Strips Telfa OpSite dressing applied. Follow-up cc view was obtained. No apparent complications blood loss minimal. She was given activity wound care instructions. Further office follow-up will be pending pathology. Specimens breast cores. Drains none. Blood loss minimal. Kole Talavera M.D., F.A.C.S. Type of Anesthesia:: Local
== END ==
PROVIDERS: PCP Family Medicine; Referring Provider Surgery; Visit Provider Surgery
DX: D05.12 Intraductal carcinoma in situ of left breast (principal); I10 Essential (primary) hypertension; E78.5 Hyperlipidemia, unspecified; E66.9 Obesity, unspecified; Z68.32 Body mass index [BMI] 32.0-32.9, adult; E11.9 Type 2 diabetes mellitus without complications; Z79.84 Long term (current) use of oral hypoglycemic drugs; Z79.82 Long term (current) use of aspirin; Z79.899 Other long term (current) drug therapy
CPT/HCPCS: 19081; 88305; 88341; 88342; J7050

== ENCOUNTER 2019-08-04 09:18 | Day surgery (SDC) | payer MEDICARE, SELFPAY ==
--- NOTE | 2019-07-14 03:28 | HP_ITS ---
Intake Vital Signs 07/14/19 Height 5 ft 2 in 07/14/19 Weight: 179 lb 07/14/19 BMI 32.7 07/14/19 BP 160/87 H 07/14/19 Blood Pressure Location Rt brachial 07/14/19 Position Sitting 07/14/19 Respiration 16 Intake Visit Reasons: Left Breast Birads 4 Chief Complaint: Follow-up visit. 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 Is patient in pain?: No Allergies No Known Allergies Allergy (Verified 07/14/19 14:06) Medications amlodipine 10 mg tablet 10 mg PO QDAY 11/18/17 [History Confirmed 07/14/19] lisinopril 40 mg tablet 40 mg PO QDAY 11/18/17 [History Confirmed 07/14/19] metoprolol succinate 50 mg tablet,extended release 24 hr 50 mg PO QDAY 11/18/17 [History Confirmed 07/14/19] aspirin 81 mg tablet,delayed release 81 mg PO BID tab 05/12/18 [History Confirmed 07/14/19] atorvastatin 40 mg tablet 40 mg PO DAILY 05/12/18 [History Confirmed 07/14/19] metformin 500 mg tablet 500 mg PO DAILY tab 05/12/18 [History Confirmed 07/14/19] multivitamin 1 tab PO DAILY 05/12/18 [History Confirmed 07/14/19] PFSH Medical History Bilateral carotid artery stenosis (Resolved) Essential (primary) hypertension (Chronic) HLD (hyperlipidemia) (Chronic) Obesity (Chronic) Type 2 diabetes mellitus (Chronic) Surgical History H/O tubal ligation (Resolved) History of right-sided carotid endarterectomy (Resolved 2012) Family History Father CAD (coronary artery disease) COPD (chronic obstructive pulmonary disease) Mother CVA (cerebral vascular accident) Hypertension Social History (Updated 07/14/19 @ 15:28 by Kole Talavera MD) Smoking Status: Never smoker HPI HPI HPI: CELENA KRISHNA, is a 69 F who presents to the office today for HPI HPI Surgical H&P: Yes HPI: CELENA KRISHNA, is a 69 F who presents to the office today for surgical consultation regarding abnormal left breast mammogram. The patient is referred by her primary care physician Dr. Fadia Gordon and a written copy of my surgical consult and recommendations will be returned to her 69-year-old female. G2, . Menarche at age 14. First child was born when she was 27. Menopause somewhere between age 46 and 49. She did not breast- feed. No history of previous breast biopsies. No estrogen replacement. Family history is negative for breast cancer. At the [facility] on July 10, 2019 she had screening mammography. There was felt to be a 1.1 x 0.8 cm asymmetric density deep midportion left breast. BI-RADS Category 0. On July 11 2019 she had diagnostic left mammogram and left breast ultrasound. The diagnostic mammogram showed the persistent density. The ultrasound did not demonstrate a lesion. The patient has not been able to detect any clinical changes her self. It is of note that this area appears to been present on her previous mammogram of January 17, 2018. There is not a direct radiology comment regarding that It is pertinent that the patient has extracranial carotid artery occlusive disease. My note of January 17, 2019 reflects the following history 68F who presents to the office today for surgical follow-up and consultation regarding bilateral extracranial carotid artery occlusive disease. August 24, 2012 I performed a right carotid endarterectomy with bovine patch angioplasty because of critical stenosis of the right external and internal carotid arteries. My operative note states that there were 2 areas of stenosis within the right internal carotid. The right carotid bulb was relatively low. A #10 USCI style shunt was placed. The plaque was felt to be nicely feathered. Plaque was further secured with a 7-0 Prolene tacking suture. Patch angioplasty was performed. On July 02, 2012 peak systolic velocity within the right internal carotid was 123 cm/s. Peak systolic velocity in the left internal carotid distally was 140 cm/s. Updated then September 02, 2016 her right internal carotid was now found to be completely occluded. She had remained asymptomatic. The peak systolic velocity within the left internal carotid at that time was 146 cm/s. The patient is on a chronic statin medication. She takes a low-dose aspirin every other day. She has never been a tobacco user. Her mother had a CVA and hypertension. In addition to her primary care physician Dr. Fadia Gordon the patient annually sees Dr. Winston because of her previous cardiac arrhythmia. On November 08, 2017 at the [facility] carotid duplex imaging was obtained. The right internal carotid is noted to be occluded. The right common carotid is patent as is the external carotid. The maximal velocity now located within the proximal left internal carotid is 210 cm/s peak systolic flow with end-diastolic velocity of 52 cm/s. This is felt to be consistent with 50-69% stenosis likely closer to the 69% range. There is normal flow in the left external carotid. Patient remains asymptomatic ROS General General: No weight change, appetite, fatigue, colon cancer or breast cancer HEENT HEENT: No difficulty swallowing, eye injury, eye surgery, swollen glands or hoarseness Endo Endocrine: No thyroid disease, diabetes mellitus, thyroid cancer, Hair loss, heat intolerance or cold intolerance Skin Skin: No rash or changing moles Breast Breast: No left breast lump, right breast lump, nipple discharge, breast pain, abnormal mammogram, abnormal US or breast enlargement Musc Musculoskeletal: No back problems, arthritis, rheumatoid arthritis, gout or joint pain Cardio Cardiovascular: Yes high blood pressure; no murmur, pacemaker, heart disease, atrial fibrillation, heart attack, heart stent, palpitations, shortness of breat with exertion or chest pain Psych Psychiatric: No depression, anxiety or hearing voices Resp Respiratory: No shortness of breath, No sleep apnea, No cough, No COPD, No asthma, No emphysema, No wheezing Gastro Gastrointestinal: No abdominal pain, No nausea or vomiting, No diarrhea, No constipation, No blood in stool, No acid reflux, No hemorrhoids, No ulcers, No gallbladder problem, No black,tarry stools [place] Hematologic: No blood thinners, No blood disorders, No bleeding, No anemia, No blood clots Exam Const General: cooperative, healthy appearing, comfortable Nutritional Appearance: overweight Orientation: alert, awake HENAL Head: normal to inspection Chest Breast Palpation: No nipple discharge Other: Right breast: No focal mass. No nipple discharge. No axillary or clavicular adenopathy Left breast: No focal mass. No nipple discharge. No axillary or clavicular adenopathy Resp Effort & Inspection: normal respiratory effort Auscultation: clear to auscultation bilaterally Cardio Rate: regular rate Rhythm: regular rhythm Heart Sounds: no murmurs GI Palpation: soft, no hepatosplenomegaly Auscultation: normal bowel sounds Neuro Cognition: normal cognition Extrem General: no calf tenderness bilaterally Psych Affect: normal affect Assessment & Plan Problems 1. Abnormal mammogram of left breast R92.8 Plan I am recommending the patient is stereotactic needle core biopsy deep upper left breast. With her present we have discussed the technique, benefit, risk, alternatives. She has had an opportunity to ask and have questions answered. I will have her hold her aspirin 3 days prior. The extracranial carotid artery occlusive disease has been referenced above. CC: Dr Fadia Talavera M.D., F.A.C.S. Coding Level of Care Code Off vis,est,level 3 Diagnoses Abnormal mammogram of left breast R92.8 07/14/19 1528 <Electronically signed by Kole gallegos MD> Date _ Kole Talavera MD I have re-examined the patient. There are no clinical changes since date of exam.
--- NOTE | 2019-07-31 04:03 | HP_ITS ---
Intake Vital Signs 07/31/19 Height 5 ft 2 in 07/31/19 Weight: 178 lb 4 oz 07/31/19 BMI 32.5 07/31/19 BP 139/82 H 07/31/19 Blood Pressure Location Rt brachial 07/31/19 Position Sitting 07/31/19 Respiration 20 H 07/31/19 Pulse 71 07/31/19 Pulse Oximetry (%) 99 Intake Visit Reasons: discuss path Chief Complaint: discuss surgery Marketing Systems Analyst Required: No Is patient in pain?: No Allergies No Known Allergies Allergy (Verified 07/31/19 14:53) Medications amlodipine 10 mg tablet 10 mg PO QDAY 11/18/17 [History Confirmed 07/31/19] lisinopril 40 mg tablet 40 mg PO QDAY 11/18/17 [History Confirmed 07/31/19] metoprolol succinate 50 mg tablet,extended release 24 hr 50 mg PO QDAY 11/18/17 [History Confirmed 07/31/19] aspirin 81 mg tablet,delayed release 81 mg PO BID tab 05/12/18 [History Confirmed 07/31/19] atorvastatin 40 mg tablet 40 mg PO DAILY 05/12/18 [History Confirmed 07/31/19] metformin 500 mg tablet 500 mg PO DAILY tab 05/12/18 [History Confirmed 07/31/19] multivitamin 1 tab PO DAILY 05/12/18 [History Confirmed 07/31/19] Is last menstrual period known: No Post menopausal: Yes Patient : No PFSH Surgical History H/O tubal ligation (Resolved) History of right-sided carotid endarterectomy (Resolved 2012) Family History Father CAD (coronary artery disease) COPD (chronic obstructive pulmonary disease) Mother CVA (cerebral vascular accident) Hypertension Social History (Updated 07/31/19 @ 16:04 by Kole Talavera MD) Smoking Status: Never smoker HPI HPI HPI: CELENA KRISHNA, is a 69 F who presents to the office today for HPI HPI Surgical H&P: Yes HPI: CELENA KRISHNA, is a 69 F who presents to the office today for for ongoing surgical consultation regarding a left breast density deep central upper left breast. On July 20, 2019 I performed a stereotactic needle core biopsy of this density. 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 Cribriform and papillary. Nuclear grade to intermediate. No necrosis. No microcalcifications. Estrogen receptor was positive at greater than 95%. Progesterone receptor was positive at greater than 95%. HER-2/naga was negative. This was based upon preoperative imaging demonstrating a vague 1.1 x 0.8 cm density on mammogram which was not seen on ultrasound. She tolerated the biopsy well. She notes is very small hematoma medial left breast. She also has history of the extracranial carotid artery occlusive disease which is being conservatively followed. ROS General General: No weight change, appetite, fatigue, colon cancer or breast cancer HEENT HEENT: No difficulty swallowing, eye injury, eye surgery, swollen glands or hoarseness Endo Endocrine: No thyroid disease, diabetes mellitus, thyroid cancer, Hair loss, heat intolerance or cold intolerance Skin Skin: No rash or changing moles Breast Breast: No left breast lump, right breast lump, nipple discharge, breast pain, abnormal mammogram, abnormal US or breast enlargement Musc Musculoskeletal: No back problems, arthritis, rheumatoid arthritis, gout or joint pain Cardio Cardiovascular: Yes high blood pressure; no murmur, pacemaker, heart disease, atrial fibrillation, heart attack, heart stent, palpitations, shortness of breat with exertion or chest pain Psych Psychiatric: No depression, anxiety or hearing voices Resp Respiratory: No shortness of breath, No sleep apnea, No cough, No COPD, No asthma, No emphysema, No wheezing Gastro Gastrointestinal: No abdominal pain, No nausea or vomiting, No diarrhea, No constipation, No blood in stool, No acid reflux, No hemorrhoids, No ulcers, No gallbladder problem, No black,tarry stools [place] Hematologic: No blood thinners, No blood disorders, No bleeding, No anemia, No blood clots Exam Chest Breast Palpation: No nipple discharge Cardio Heart Sounds: no murmurs Assessment & Plan Problems 1. Ductal carcinoma in situ (DCIS) of left breast D05.12 Plan DCIS mid medial central left breast. This was based upon a vague density seen on mammogram and ultrasound. No microcalcifications. The pathology does not demonstrate an aggressive pattern nor is invasive carcinoma identified. With the patient's present I have described a stereotactic wire localization with wire localized excisional biopsy. I have discussed technique, benefit, risk, alternatives. No guarantees of success have been offered. We discussed the potential for final pathology did not demonstrate invasive carcinoma. We discussed the technique, benefit, risk, alternatives of a left axillary sentinel lymph node biopsy. My concern is that this is not a 0 risk procedure adding the sentinel node biopsy and that it does carry morbidity. The patient and her have had an opportunity to ask and have questions answered. I will have them see hematology oncology preoperatively. We will tentatively schedule and expedite her surgery at her request. I appreciate the ongoing opportunity of assisting with her surgical care Cc: Dr. Fadia Gordon and Dr. Lisa Talavera M.D., F.A.C.S. 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
[2019-08-01 10:07] VITALS: BMI 32.8
[2019-08-04] VITALS (7 sets, daily range): BP systolic 85–150; BP diastolic 55–94; PULSE 54–68; RESP 12–16; TEMP 36.1–36.6; O2SAT 94–100; BMI 33.4
--- NOTE | 2019-08-04 | BRBX_PTH ---
PATIENT: CELENA KRISHNA LOC: [facility] [place]#:[id number] AGE/SX: 69/F ROOM: RE08/04/[address]: Dr. Kole Talavera MD : 1950 BED: DIS: 08/04/2019 SPEC #: [id number] RECD: 08/04/19 12:19 STATUS: LORRAINE REAlden #: [id number] AYESHA: 08/04/19 00:[address]: Kole Talavera DEPT: SURGICAL PATHOLOGY RECD BY: Mariela Branch ENTERED: 08/04/19 13:34 SP TYPE: BREAST BX OTHR DR: Dr. Fadia Gordon MD Tissues: Left breast, NOS Procedures: Surgery Specimen Level V HEADER OPERATION: Left breast lumpectomy PRE-OP DIAGNOSIS: DCIS left breast D05.12 TISSUE SUBMITTED: Left breast lumpectomy, short suture - superior, long suture - lateral, hematoma represents deep margin MICROSCOPIC DIAGNOSIS Left breast, lumpectomy with needle localization: Ductal carcinoma in situ. See cancer summary below. SJ:joanne 08/09/19 DUCTAL CARCINOMA IN SITU SUMMARY Procedure - excision with needle localization Specimen laterality - left Tumor site - density deep mid portion Specimen - partial breast Size (extent of DCIS): 0.7 x 0.5 cm (measured microscopically) Number of blocks with DCIS - 1 Number of blocks examined - 12 Histologic type - ductal carcinoma in situ Architectural pattern - cribriform Nuclear grade - grade 1 (low) Necrosis - not identified Margin - margin uninvolved by DCIS Distance from closest margin - the tumor is 0.5 cm away from the closest superior margin. Regional lymph nodes - no lymph nodes submitted or found. Additional Pathologic Findings - - fibrocystic change and intraductal hyperplasia with focal atypia. - Skin, dermal fibrosis consistent with scar. - Changes consistent with previous biopsy site. Ancillary Studies from previous specimen ([id number] / [id number]): ER - positive (>95%, strong intensity) AR - positive (>95%, strong intensity) Her2 naga ([facility]) - negative (0) Microcalcifications - not identified Clinical history - Please make reference to previous specimen ([id number]) left breast, deep mid portion, stereotactic core biopsy with diagnosis of ductal carcinoma in situ. Radiologic findings - density area in the deep central portion of the breast. Pathologic Staging: pTis(DCIS) pNx Mx The above summary is in compliance with [employer] [place] Pathology (CAP) Cancer Protocols Checklist and [place] Joint Committee on Cancer (AJCC), Staging Manual, 8th Ed. COMMENT Case has been reviewed in consultation with Dr. Rothman who concurs with the above diagnosis. IDC:AM MICROSCOPIC DESCRIPTION Slides are reviewed. GROSS DESCRIPTION Received fresh for intraoperative consultation labeled with the patient's name is a specimen designated left breast lumpectomy. The specimen consists of a piece of fibroadipose tissue with needle localization measuring 7.5 x 7 x 3 cm. A piece of skin is noted anteriorly measuring 1.5 x 0.5 cm. The specimen is oriented as short suture - superior, long suture - lateral and the hematoma represents the deep margin. The specimen is inked as follows: anterior - yellow, posterior - black, superior - blue, inferior - green, medial - red and lateral - orange. Serial sections reveal a biopsy cavity measuring 3.5 x 0.5 cm and is 0.5 cm away from the closest superior margin. This information is conveyed to the surgeon intraoperatively. The rest of the specimen reveals mckinney-yellow adipose cut surfaces with scant fibrous areas. A separate piece of the tissue is also noted close to the posterior margin which measures 4 x 2.5 x 1 cm. Regional Commercial Sales Manager sections are submitted in 12 cassettes as follows: 1 - skin entirely submitted, perpendicular anterior and posterior margin, 2 - perpendicular medial, lateral and inferior margin, 310??contains the biopsy cavity, (a few cassettes also contain the closest superior margin), 11 & 12 - representative personal service sections away from the biopsy cavity. Sections will be submitted after additional fixation. / ALEENA:joanne 08/07/19 TC:0 CPT: 88908, 53943
[2019-08-04] MEDS: Lactated Ringers 1,000 ML 100 ML IV (09:43)
--- NOTE | 2019-08-04 10:30 | BI_ITS ---
SURGICAL BREAST SPECIMEN RADIOGRAPH CLINICAL: Document presence of tissue clip marker in biopsy specimen. FINDINGS: Specimen shows presence of tissue clip marker. Pathology is pending and an addendum to the biopsy report will be performed after the final pathologic diagnosis is rendered. Electronically Signed: Miguel Fam MD at 8:17 EST , Service support , BI/Breast Biopsy Specimen
--- NOTE | 2019-08-04 11:16 | HP.PCM_ITS ---
Problem List (1) Ductal carcinoma in situ (DCIS) of left breast Status: Acute History and Physical Date of Admission: 08/04/19 Intake Visit Reasons: discuss path Chief Complaint: discuss surgery Laboratory Technology Teacher Required: No Is patient in pain?: No Allergies No Known Allergies Allergy (Verified 07/31/19 14:53) Medications amlodipine 10 mg tablet 10 mg PO QDAY 11/18/17 [History Confirmed 07/31/19] lisinopril 40 mg tablet 40 mg PO QDAY 11/18/17 [History Confirmed 07/31/19] metoprolol succinate 50 mg tablet,extended release 24 hr 50 mg PO QDAY 11/18/17 [History Confirmed 07/31/19] aspirin 81 mg tablet,delayed release 81 mg PO BID tab 05/12/18 [History Confirmed 07/31/19] atorvastatin 40 mg tablet 40 mg PO DAILY 05/12/18 [History Confirmed 07/31/19] metformin 500 mg tablet 500 mg PO DAILY tab 05/12/18 [History Confirmed 07/31/19] multivitamin 1 tab PO DAILY 05/12/18 [History Confirmed 07/31/19] Is last menstrual period known: No Post menopausal: Yes Patient : No PFSH Surgical History H/O tubal ligation (Resolved) History of right-sided carotid endarterectomy (Resolved 2012) Family History Father CAD (coronary artery disease) COPD (chronic obstructive pulmonary disease) Mother CVA (cerebral vascular accident) Hypertension Social History (Updated 07/31/19 @ 16:04 by Kole Talavera MD) Smoking Status: Never smoker HPI HPI HPI: CELENA KRISHNA, is a 69 F who presents to the office today for HPI HPI Surgical H&P: Yes HPI: CELENA KRISHNA, is a 69 F who presents to the office today for for ongoing surgical consultation regarding a left breast density deep central upper left breast. On July 20, 2019 I performed a stereotactic needle core biopsy of this density. 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 Cribriform and papillary. Nuclear grade to intermediate. No necrosis. No microcalcifications. Estrogen receptor was positive at greater than 95%. Progesterone receptor was positive at greater than 95%. HER-2/naga was negative. This was based upon preoperative imaging demonstrating a vague 1.1 x 0.8 cm density on mammogram which was not seen on ultrasound. She tolerated the biopsy well. She notes is very small hematoma medial left breast. She also has history of the extracranial carotid artery occlusive disease which is being conservatively followed. ROS General General: No weight change, appetite, fatigue, colon cancer or breast cancer HEENT HEENT: No difficulty swallowing, eye injury, eye surgery, swollen glands or hoarseness Endo Endocrine: No thyroid disease, diabetes mellitus, thyroid cancer, Hair loss, heat intolerance or cold intolerance Skin Skin: No rash or changing moles Breast Breast: No left breast lump, right breast lump, nipple discharge, breast pain, abnormal mammogram, abnormal US or breast enlargement Musc Musculoskeletal: No back problems, arthritis, rheumatoid arthritis, gout or joint pain Cardio Cardiovascular: Yes high blood pressure; no murmur, pacemaker, heart disease, atrial fibrillation, heart attack, heart stent, palpitations, shortness of breat with exertion or chest pain Psych Psychiatric: No depression, anxiety or hearing voices Resp Respiratory: No shortness of breath, No sleep apnea, No cough, No COPD, No asthma, No emphysema, No wheezing Gastro Gastrointestinal: No abdominal pain, No nausea or vomiting, No diarrhea, No constipation, No blood in stool, No acid reflux, No hemorrhoids, No ulcers, No gallbladder problem, No black,tarry stools [place] Hematologic: No blood thinners, No blood disorders, No bleeding, No anemia, No b lood clots Exam Chest Breast Palpation: No nipple discharge Cardio Heart Sounds: no murmurs Assessment & Plan Problems 1. Ductal carcinoma in situ (DCIS) of left breast D05.12 Plan DCIS mid medial central left breast. This was based upon a vague density seen on mammogram and ultrasound. No microcalcifications. The pathology does not demonstrate an aggressive pattern nor is invasive carcinoma identified. With the patient's present I have described a stereotactic wire localization with wire localized excisional biopsy. I have discussed technique, benefit, risk, alternatives. No guarantees of success have been offered. We discussed the potential for final pathology did not demonstrate invasive carcinoma. We discussed the technique, benefit, risk, alternatives of a left axillary sentinel lymph node biopsy. My concern is that this is not a 0 risk procedure adding the sentinel node biopsy and that it does carry morbidity. The patient and her have had an opportunity to ask and have questions answered. I will have them see hematology oncology preoperatively. We will tentatively schedule and expedite her surgery at her request. I appreciate the ongoing opportunity of assisting with her surgical care Cc: Dr. Fadia Gordon and Dr. Lisa Talavera M.D., F.A.C.S. Orders Referrals: Oncology D05.10 Coding Level of Care Code Off vis,est,level 3 Diagnoses Ductal carcinoma in situ (DCIS) of left breast D05.12 Time Spent (min) 30 07/31/19 1604 <Electronically signed by Kole gallegos MD> Date _ Kole Talavera MD Cosigner Signature: Date (if applicable) CC: Fadia Gordon MD; Lisa Johnson MD ~ I have re-examined the patient. There are no clinical changes since date of exam.
--- NOTE | 2019-08-04 11:17 | PCM.OPRPT ---
Problem List (1) Ductal carcinoma in situ (DCIS) of left breast Status: Acute Report of Operation Date of Procedure: 08/04/19 Pre-Operative Diagnosis: Ductal carcinoma in situ central left breast, slightly medial Post-Operative Diagnosis: Same Surgery/Procedure Performed:: Stereotactic wire localization left breast. Wire localized left breast lumpectomy Description of Surgical Findings:: Timeout and informed consent was obtained. 69-year-old female was taken to the stereotactic unit placed prone on the table. Left breast was placed in the medial lateral view. The marking clip in question was rapid identified. Stereotactic images were obtained. Digital information was obtained on a single target site. The breast was prepped with Betadine. 1% lidocaine was used as local anesthetic. 1 cc was used. A 20-gauge Kopans needle was advanced to prefire depth +15 mm. The wire was displaced. On fast view demonstrated adequate localization. Tape and sterile dressings applied. She was subsequently taken back to to the holding room for planned definitive excisional surgery. Was taken to the operative room. She was placed supine on the table. She underwent general anesthesia. Left arm was wrapped with cell phone placed at right angles to the table. The left breast was sterilely prepped and draped. She had evidence of her previous biopsy incision medial left breast I made a curvilinear incision and took ellipse of skin. Trung down following the wire. The dissection actually then continue to work extend down into the retroareolar area almost to the 3 o'clock position of the left breast on the left-hand side of the areola. Circumferential dissection performed a sharp dissection electrocautery dissection. Eventually the specimen was excised it was evidence of the hematoma cavity it was present at the very deepest portion of the dissection so then I re-did sharp excision of that tissue adjacent to the deep margin. I inspected the excisional cavity and saw no gross residual disease. I put 4 marking clips at the borders. Hemostasis was obtained with electrocautery. Because of the size and the depth of the cavity I placed FloSeal to further assist with hemostasis. Hemostasis was intact. The wound was closed with deep layer of interrupted 3-0 Vicryl and then interrupted 4-0 Monocryl subdermal stitches. Steri-Strips Telfa OpSite and a bulky pressure dressing applied. The ozzie-incisional areas anesthetized with 0.5% Marcaine a total of 30 cc was used. Sponge and instrument and needle counts were reported the surgeon be correct. Specimen mammogram demonstrated the marking clip to be present within the excised specimen. Pathology suggested the closest margin was 5 mm. Specimen breast specimen with additional deep excision. Drains none. Blood loss minimal. Kole Talavera M.D., F.A.C.S. Type of Anesthesia:: General Anesthesiologist: Leonor Kathleen
--- NOTE | 2019-08-04 11:19 | DCINST_ITS ---
Discharge Diet: No Restrictions Discharge Activity: May Not Drive - for 2-3 days or while taking narcotic pain meds. May shower in (days): 1 Lifting Restrictions: 10 pounds for 1 week. Call your doctor if your incision/area has: Continuous Slow Oozing, Sudden In creased Bleeding Call your doctor if you observe: Fever of 101 or Higher Suture Line Care: Avoid Pulling/Pushing, Avoid Pinching/Bending Remove Dressing in (days):: 1 - Remove bulky dressing tomorrow. May leave any opsite dressing for 3-4 days. Keep dressing in place until your follow-up appointment. Additional Dressing/Incision Instructions:: Remove bulky dressing tomorrow. May leave any opsite dressing for 3-4 days. Allergies/Adverse Reactions: Allergies No Known Allergies Allergy (Verified 08/04/19 09:34) Medications to take at Discharge amlodipine 10 mg tablet 10 mg PO QDAY 11/18/17 lisinopril 40 mg tablet 40 mg PO QDAY 11/18/17 metoprolol succinate 50 mg tablet,extended release 24 hr 50 mg PO QDAY 11/18/17 aspirin 81 mg tablet,delayed release 81 mg PO DAILY tab 05/12/18 atorvastatin 40 mg tablet 40 mg PO DAILY 05/12/18 metformin 500 mg tablet 500 mg PO DAILY tab 05/12/18 multivitamin 1 tab PO DAILY 05/12/18 Primary Care Physician: Fadia Gordon MD [Primary Care Provider] -
[2019-08-04] MEDS: Bupivacaine Mpf 0.5% 30 ML VIAL (12:22)
== END 2019-08-04 14:39 | disposition home or self-care (01) ==
LOC: SDC 09:18 → AC 09:21
PROVIDERS: PCP Family Medicine; Referring Provider Surgery; Visit Provider Surgery
PROC: (CPT 19301; principal; 2019-08-04 11:15)
DX: D05.12 Intraductal carcinoma in situ of left breast (principal); I10 Essential (primary) hypertension; E78.00 Pure hypercholesterolemia, unspecified; E66.9 Obesity, unspecified; Z68.32 Body mass index [BMI] 32.0-32.9, adult; E11.9 Type 2 diabetes mellitus without complications; I65.23 Occlusion and stenosis of bilateral carotid arteries; G25.81 Restless legs syndrome; Z78.0 Asymptomatic menopausal state; Z79.82 Long term (current) use of aspirin; Z79.84 Long term (current) use of oral hypoglycemic drugs; Z79.899 Other long term (current) drug therapy
CPT/HCPCS: 19283; 19301; 19281; 76098; 88307; J7120; J2405

== ENCOUNTER → 2019-08-29 10:39 | Outpatient (CLI) | payer MEDICARE, SELFPAY ==
[2019-08-01 10:07] VITALS: BMI 32.8
[2019-08-04 09:35] VITALS: BMI 33.4
[2019-08-21 12:53] VITALS: BMI 33.0
--- NOTE | 2019-08-29 10:55 | BD_ITS ---
STUDY: DUAL ENERGY X-RAY ABSORPTIOMETRY / DXA REASON FOR EXAM: Female, 69 years old. Age of akosua- 49. Pat is 174.9# and 61 and quot; a loss of 1 and quot; per pat. Borderline Type II diabetic and takes metformin. Past hx of taking a diuretic. Takes a multi-vit. Does not exercise. Hx of a left lumpectomy 3 weeks ago due to CA. TECHNIQUE: Bone Mineral Density (BMD) measurements of lumbar spine and bilateral hips were obtained. COMPARISON: Comparison is made with prior study dated December 31, 2015. FINDINGS: Lumbar Spine (L1-L4): g/cm2 (1.250) / T-score (0.7) / Z-score (2.4) Findings are suggestive of normal bone density with a low fracture risk. Left Femur Total: g/cm2 (1.049) / T-score (0.3) / Z-score (1.7) Left Femoral Neck: g/cm2 (1.001) / T-score (-0.3) / Z-score (1.4) Right Femur Total: g/cm2 (1.035) / T-score (0.2) / Z-score (1.6) Right Femoral Neck: g/cm2 (0.933) / T-score (-0.8) / Z-score (0.9) The T-Scores on the most recent prior examination were: Lumbar Spine (L1-L4): There has been improvement of bone density since the previous examination. Left Femur Total: which represents an improvement of 2.1%. Right Femur Total: which represents a worsening of 2.1%. BD/Dexa Bone Density Study IMPRESSION: The patient is considered normal as outlined below according to World [employer] Organization (WHO) criteria with a low fracture risk. There has been improvement of bone density since the previous examination. Reference Information: The T-score is the number of standard deviations above or below the standard which is normal for young adults at their peak bone mineral density. The World Health Organization (WHO) interprets the T-scores as follows: Above -1 Normal bone density Between -1 and -2.5 Osteopenia Equal to / or below -2.5 Osteoporosis As a practical clinical guideline, osteopenia may be graded as follows: Mild -1 through -1.5 Moderate -1.6 through -2.0 Severe -2.1 through -2.4 The Z-score is the number of standard deviations above or below age-matched controls. A Z-score of less than -1.5 would be considered abnormal. References: 1. NIH Osteoporosis and Related Bone Diseases http://www.osteo.org 2. International Society for Clinical Densitometry http://www.iscd.org 3. National Osteoporosis Foundation http://www.nof.org Electronically Signed: Travis Persaud, at 12:59 EST , Service support ,
== END ==
PROVIDERS: PCP Family Medicine; Referring Provider Internal Medicine Hematology & Oncology; Visit Provider Internal Medicine Hematology & Oncology
DX: C50.919 Malignant neoplasm of unspecified site of unspecified female breast (principal); Z78.0 Asymptomatic menopausal state
CPT/HCPCS: 77080

== ENCOUNTER → 2020-01-12 10:25 | Outpatient (CLI) | payer MEDICARE, SELFPAY ==
[2019-08-04 09:35] VITALS: BMI 33.4
[2019-08-21 12:53] VITALS: BMI 33.0
[2020-01-12 12:30] LABS: AST(SGOT) 26 U/L (15-37); Alanine Aminotransfer ALT/SGPT 39 U/L (13-56); Albumin, Serum 3.7 g/dL (3.2-5.0); Alkaline Phosphatase 83 U/L (45-117); Anion Gap 5 (5-15); BUN 15 mg/dL (7-18); BUN/Creat Ratio 18.8 RATIO (10-20); Bilirubin, Direct 0.19 mg/dL (0.00-0.30); Calcium,Total 9.1 mg/dL (8.5-10.1); Chloride 103 mmol/L (98-107); Cholesterol 132 mg/dL (200); EST Glomerular Filtration Rate 76 mL/min (>60); Est Glom Filt Rate - Afr Amer 92 mL/min (>60); Globulin 3.3 g/dL (2.2-4.2); Glucose 151 mg/dL (74-106); High Density Lipoprotein 45 mg/dL; Potassium 4.5 mmol/L (3.5-5.1); Sodium Level 139 mmol/L (136-145); Triglycerides 143 mg/dL; Very Low Density Lipoprotein 29 mg/dL (5-40)
[2020-01-12 15:36] LABS: Microalbumin,Random Urine 9.5 mg/L (NO RANGE EST.)
== END ==
PROVIDERS: PCP Family Medicine; Visit Provider Family Medicine
DX: I10 Essential (primary) hypertension (principal); E11.9 Type 2 diabetes mellitus without complications
CPT/HCPCS: 36415; 80048; 80061; 80076; 82043; 82570

== ENCOUNTER → 2020-01-30 09:58 | Outpatient (CLI) | payer MEDICARE, SELFPAY ==
[2019-08-04 09:35] VITALS: BMI 33.4
[2019-08-21 12:53] VITALS: BMI 33.0
--- NOTE | 2020-01-30 09:58 | CDU_ITS ---
Reason For Study: Carotid stenosis Rt. Velocities/BP Lt. Velocities/BP Prox CCA 47.2/10.2 cm/sec. Prox CCA 86.2/34.4 cm/sec. Mid CCA 54.3/10.9 cm/sec. Mid CCA 80.9/29.8 cm/sec. Dist CCA 47.9/12.3 cm/sec. Dist CCA 191.7/59.1 cm/sec. Rt ICA, No Flow. Prox ICA 236.9/72.1 cm/sec. Prox ECA 79.6/13.3 cm/sec. Mid ICA 94/39.6 cm/sec. Rt. Vert. 21.4/9.6 cm/sec. Dist ICA 79.7/27 cm/sec. Lt. ICA/CCA = 2.75. Prox ECA 64.3/11.6 cm/sec. Lt. Vert. 121.4/29.2 cm/sec. Right Extracranial There is homogeneous, smooth atherosclerotic plaque noted in the right common carotid artery. There is heterogeneous, irregular atherosclerotic plaque noted in the right internal carotid artery. The right internal carotid artery is occluded. There is intimal thickening but no significant atherosclerotic plaque noted in the right external carotid artery. Antegrade flow is noted in the right vertebral artery. Left Extracranial There is homogeneous, smooth atherosclerotic plaque noted in the left common carotid artery. There is heterogeneous, irregular atherosclerotic plaque noted in the left internal carotid artery. There is heterogeneous, irregular atherosclerotic plaque noted in the left external carotid artery. The left external carotid artery is not well visualized. Antegrade flow is noted in the left vertebral artery. Procedure Carotid Duplex [id number]. Prelim to Janine. Exam performed in department. Interpretation Summary Occluded right internal carotid artery <50% stenosis right external carotid Irregular calcific plaque proximal left internal carotid artery with greater than 70% stenosis. <50% stenosis left external carotid Patent and antegrade vertebral arteries bilaterally Progression of left internal carotid disease since the previous examination of December 07, 2018 Ordering Physician: Kole Talavera Referring Physician: Fadia Gordon M.D. Performed By: Randi El RVT and Student
== END ==
PROVIDERS: PCP Family Medicine; Referring Provider Surgery; Visit Provider Surgery
DX: I65.23 Occlusion and stenosis of bilateral carotid arteries (principal)
CPT/HCPCS: 93880

== ENCOUNTER → 2020-02-28 | Outpatient (CLI) | payer MEDICARE, SELFPAY ==
[2019-08-21 12:53] VITALS: BMI 33.0
--- NOTE | 2020-02-28 15:15 | LES_PTH ---
PATIENT: CELENA KRISHNA LOC: [facility] U#:[id number] AGE/SX: 70/F ROOM: RE02/28/[address]: Dr. Kole Talavera MD : [id number] BED: DIS: 02/28/2020 SPEC #: [id number] RECD: 02/28/20 15:58 STATUS: LORRAINE FATMATA #: [id number] AYESHA: 02/28/20 15:[address]: Kole Talavera DEPT: SURGICAL PATHOLOGY RECD BY: Alem Powers ENTERED: 02/29/20 12:43 SP TYPE: Lesion OTHR DR: Dr. Fadia Gordon MD Tissues: Skin of neck, NOS Procedures: Surgery Specimen Level IV HEADER OPERATION: Punch biopsy posterior neck lesion PRE-OP DIAGNOSIS: Neoplasm neck TISSUE SUBMITTED: Posterior neck tissue MICROSCOPIC DIAGNOSIS Posterior neck tissue, punch biopsy: Hyperkeratosis and acanthosis. Mild dermal vascular ectasia, follicular chronic inflammation, solar elastosis and reactive changes. Negative for malignancy. ALEENA:joanne 03/01/20 COMMENT Clinical correlation and appropriate follow up are necessary. Case has been reviewed in consultation with Dr. Rothman who concurs with the above diagnosis. IDC:AM MICROSCOPIC DESCRIPTION Slides are reviewed. GROSS DESCRIPTION Received in fixative is one container labeled with the patient's name and designated posterior neck tissue. The specimen consists of a punch biopsy of mckinney-white skin measuring 0.3 cm in diameter and 0.7 cm in length. The specimen is totally submitted in one cassette. / ALEENA:joanne 02/29/20 TC:5 CPT: 06245
[2020-02-28 15:20] VITALS: BMI 33.8
== END | disposition home or self-care (01) ==
LOC: LABSPEC 16:02
PROVIDERS: PCP Family Medicine; Referring Provider Surgery; Visit Provider Surgery
DX: L83 Acanthosis nigricans (principal)
CPT/HCPCS: 88305

== ENCOUNTER → 2020-04-16 12:00 | Outpatient (CLI) | payer MEDICARE, SELFPAY ==
[2019-08-21 12:53] VITALS: BMI 33.0
[2020-03-07 11:22] VITALS: BMI 33.8
[2020-04-16 14:58] LABS: Absolute Lymphocyte Count 0.98 X10^3/uL (0.83-4.51); Absolute Neutrophil Count 4.7 X10^3/uL (2.0-7.7); Basophil# 0.02 X10^3/uL; Basophil% 0.3 % (0-1); Eosinophil# 0.09 X10^3/uL; Eosinophils% 1.5 % (0-5); Lymphocyte # 0.98 X10^3/ul (4.0); Lymphocyte % 15.9 % (19-41); Mean Corp Hgb Conc 31.4 g/dL (32-36); Mean Corpuscular Hgb 30.1 pg (27.0-32.0); Mean Corpuscular Volume 95.6 fL (81-99); Mean Platelet Vol. 10.8 fl (6.2-12.0); Monocyte# 0.32 X10^3/uL; Monocyte% 5.2 % (0-10); NRBC Flagged by Analyzer 0 % (0-5); Neutrophil # 4.73 X10^3/uL (2.7-7.7); Neutrophil % 76.5 % (47-70); Platelet Count 306 K/mm3 (150-450); RBC Distribution Width CV 12.8 % (11.6-14.6); RBC Distribution Width SD 44.1 fl (35.1-43.9); Red Blood Count 3.66 M/mm3 (4.2-5.4); White Blood Count 6.2 K/mm3 (4.4-11.0)
[2020-04-16 15:26] LABS: Anion Gap 7 (5-15); BUN 15 mg/dL (7-18); BUN/Creat Ratio 16.3 RATIO (10-20); Calcium,Total 9.4 mg/dL (8.5-10.1); Chloride 101 mmol/L (98-107); Creatinine, Serum 0.92 mg/dL (0.55-1.02); EST Glomerular Filtration Rate 64 mL/min (>60); Est Glom Filt Rate - Afr Amer 78 mL/min (>60); Glucose 167 mg/dL (74-106); Potassium 4.1 mmol/L (3.5-5.1); Sodium Level 136 mmol/L (136-145); Thyroid Stim Hormone (TSH) 2.06 uIU/mL (0.358-3.74)
== END ==
PROVIDERS: PCP Family Medicine; Referring Provider Family Medicine; Visit Provider Family Medicine
DX: R63.5 Abnormal weight gain (principal)
CPT/HCPCS: 36415; 80048; 84443; 85025

== ENCOUNTER → 2020-07-11 09:52 | Outpatient (CLI) | payer MEDICARE, SELFPAY ==
[2019-08-21 12:53] VITALS: BMI 33.0
[2020-02-02 14:24] VITALS: BMI 33.8
[2020-03-07 11:22] VITALS: BMI 33.8
--- NOTE | 2020-07-11 10:16 | CDU_ITS ---
Reason For Study: bilateral carotid stenosis Rt. Velocities/BP Lt. Velocities/BP Prox CCA 91.7/14.7 cm/sec. Prox CCA 80.09/29.8 cm/sec. Mid CCA 56.5/17.3 cm/sec. Mid CCA 66.2/23.4 cm/sec. Dist CCA 66.9/21.3 cm/sec. Dist CCA 72.8/26.7 cm/sec. Prox ECA 98.2/21.3 cm/sec. Prox ICA 215.8/73.3 cm/sec. Rt. Vert. 21.6/9.5 cm/sec. Mid ICA 195.0/75.9 cm/sec. Dist ICA 91.9/33.4 cm/sec. Lt. ICA/CCA = 3.3. Prox ECA 47.6/10.2 cm/sec. Lt. Vert. 97.4/27.9 cm/sec. Right Extracranial There is homogeneous, smooth atherosclerotic plaque noted in the right common carotid artery. There is heterogeneous, irregular atherosclerotic plaque noted in the right internal carotid artery. The right internal carotid artery is occluded. There is intimal thickening but no significant atherosclerotic plaque noted in the right external carotid artery. Antegrade flow is noted in the right vertebral artery. Left Extracranial There is heterogeneous, irregular atherosclerotic plaque noted in the left common carotid artery. There is heterogeneous, irregular atherosclerotic plaque noted in the left internal carotid artery. There is homogeneous, smooth atherosclerotic plaque noted in the left external carotid artery. The left external carotid artery is not well visualized. Antegrade flow is noted in the left vertebral artery. Procedure Carotid Duplex [id number]. This is a Carotid Duplex examination using B-mode, color flow and specral Doppler. The exam was diagnostic. Exam performed in department. Interpretation Summary Occlusion right internal carotid artery. Less than 50% stenosis right external carotid Patent antegrade right vertebral although with low flow. Irregular calcific plaque at the proximal left internal carotid artery with 50 to 69% stenosis .Possibly closer to upper limits) Less than 50% stenosis left external carotid Patent antegrade left vertebral No change from January 30, 2020 Ordering Physician: Kole Talavera Performed By: Pete Sherman RVT
--- NOTE | 2020-07-11 10:45 | BI_ITS ---
MAMMOGRAPHY - BILATERAL SCREENING REASON FOR EXAM: Female, 70 years old. Routine annual screening examination. PERTINENT HISTORY: Personal history of breast cancer. Prior left lumpectomy and radiation treatment. TECHNIQUE: Digital bilateral breast mery (3D mammographic acquisition) in the CC and MLO projections. 2-D mediolateral oblique (MLO) and craniocaudad (CC) views of both breasts were obtained. CAD: Full Field Digital Mammography with Computer Added Detection was performed. COMPARISON: Comparison is made with prior examination dated 07/10/2019 and 07/11/2019. FINDINGS: Breast Composition: There are scattered areas of fibroglandular density. There are no dominant masses or suspicious calcifications. The patient is status post lumpectomy in the central deep portion of the left breast with resultant postoperative deformity as well as skin thickening. No other significant abnormalities are identified. BI/SCRN MAMM (CAD)W/MERY BILAT IMPRESSION: Status post left lumpectomy with resultant postoperative deformity and skin thickening. Yearly follow-up mammogram recommended. (A) ASSESSMENT CATEGORY: BIRADS Category 2: Benign. A letter regarding these results will be sent to the patient by the facility within 30 days. Approximately 10% of breast cancers are not detected by mammography. A normal mammogram should not delay biopsy of a clinically suspicious abnormality. [id number] Electronically Signed: Travis Persaud, at 12:22 EST , Service support ,
== END ==
PROVIDERS: PCP Family Medicine; Referring Provider Surgery; Visit Provider Surgery
DX: Z12.31 Encounter for screening mammogram for malignant neoplasm of breast (principal); C50.919 Malignant neoplasm of unspecified site of unspecified female breast; I65.23 Occlusion and stenosis of bilateral carotid arteries
CPT/HCPCS: 77063; 77067; 93880

== ENCOUNTER → 2020-12-31 14:20 | Outpatient (CLI) | payer MEDICARE, SELFPAY ==
[2019-08-21 12:53] VITALS: BMI 33.0
[2020-12-31 18:11] LABS: Absolute Lymphocyte Count 1.22 X10^3/uL (0.83-4.51); Absolute Neutrophil Count 5.3 X10^3/uL (2.0-7.7); Basophil# 0.04 X10^3/uL; Basophil% 0.6 % (0-1); Eosinophil# 0.12 X10^3/uL; Eosinophils% 1.7 % (0-5); Hematocrit 34.3 % (37-47); Hemoglobin 10.9 g/dL (12.0-15.0); Lymphocyte # 1.22 X10^3/ul (0.83-4.51); Lymphocyte % 17.4 % (19-41); Mean Corp Hgb Conc 31.8 g/dL (32-36); Mean Corpuscular Hgb 30.3 pg (27.0-32.0); Mean Corpuscular Volume 95.3 fL (81-99); Mean Platelet Vol. 10.7 fl (6.2-12.0); Monocyte# 0.35 X10^3/uL; NRBC Flagged by Analyzer 0 % (0-5); Neutrophil # 5.25 X10^3/uL (2.7-7.7); Neutrophil % 74.6 % (47-70); Platelet Count 343 K/mm3 (150-450); RBC Distribution Width SD 45.5 fl (35.1-43.9)
[2020-12-31 18:31] LABS: Anion Gap 4 (5-15); BUN 23 mg/dL (7-18); BUN/Creat Ratio 19.8 RATIO (10-20); Calcium,Total 9.4 mg/dL (8.5-10.1); Chloride 104 mmol/L (98-107); Creatinine, Serum 1.16 mg/dL (0.55-1.02); EST Glomerular Filtration Rate 49 mL/min (>60); Est Glom Filt Rate - Afr Amer 59 mL/min (>60); Glucose 188 mg/dL (74-106); Potassium 4.9 mmol/L (3.5-5.1); Sodium Level 137 mmol/L (136-145); Thyroid Stim Hormone (TSH) 2.28 uIU/mL (0.358-3.74)
== END ==
PROVIDERS: PCP Family Medicine; Visit Provider Family Medicine
DX: R63.5 Abnormal weight gain (principal)
CPT/HCPCS: 36415; 80048; 84443; 85025

== ENCOUNTER → 2021-03-12 12:57 | Outpatient (CLI) | payer MEDICARE, SELFPAY ==
[2019-08-21 12:53] VITALS: BMI 33.0
[2021-03-12 15:02] LABS: Absolute Lymphocyte Count 1.44 X10^3/uL (0.83-4.51); Absolute Neutrophil Count 5.8 X10^3/uL (2.0-7.7); Basophil# 0.04 X10^3/uL; Basophil% 0.5 % (0-1); Eosinophil# 0.15 X10^3/uL; Eosinophils% 1.9 % (0-5); Hematocrit 35.4 % (37-47); Hemoglobin 11.2 g/dL (12.0-15.0); Lymphocyte # 1.44 X10^3/ul (0.83-4.51); Lymphocyte % 18.3 % (19-41); Mean Corp Hgb Conc 31.6 g/dL (32-36); Mean Corpuscular Hgb 30.1 pg (27.0-32.0); Mean Corpuscular Volume 95.2 fL (81-99); Mean Platelet Vol. 10.6 fl (6.2-12.0); Monocyte% 5.1 % (0-10); NRBC Flagged by Analyzer 0 % (0-5); Neutrophil % 73.6 % (47-70); Platelet Count 311 K/mm3 (150-450); RBC Distribution Width CV 13.2 % (11.6-14.6); RBC Distribution Width SD 46.2 fl (35.1-43.9); Red Blood Count 3.72 M/mm3 (4.2-5.4); White Blood Count 7.9 K/mm3 (4.4-11.0)
[2021-03-12 15:36] LABS: ALB/GLOB Ratio 0.9 RATIO (0.9-2.4); AST(SGOT) 30 U/L (15-37); Alanine Aminotransfer ALT/SGPT 40 U/L (13-56); Albumin, Serum 3.8 g/dL (3.2-5.0); Alkaline Phosphatase 92 U/L (45-117); Anion Gap 5 (5-15); BUN 21 mg/dL (7-18); Calcium,Total 9.8 mg/dL (8.5-10.1); Chloride 103 mmol/L (98-107); Creatinine, Serum 1.05 mg/dL (0.55-1.02); EST Glomerular Filtration Rate 55 mL/min (>60); Est Glom Filt Rate - Afr Amer 67 mL/min (>60); Globulin 4.2 g/dL (2.2-4.2); Glucose 188 mg/dL (74-106); Potassium 4.5 mmol/L (3.5-5.1); Sodium Level 138 mmol/L (136-145); Thyroid Stim Hormone (TSH) 2.16 uIU/mL (0.358-3.74)
== END ==
PROVIDERS: PCP Family Medicine; Referring Provider Family Medicine; Visit Provider Family Medicine
DX: G25.2 Other specified forms of tremor (principal)
CPT/HCPCS: 36415; 80053; 84443; 85025

== ENCOUNTER 2021-07-18 12:21 | Outpatient (CLI) | payer MEDICARE, SELFPAY ==
[2019-08-21 12:53] VITALS: BMI 33.0
--- NOTE | 2021-07-18 12:24 | BI_ITS ---
MAMMOGRAPHY - BILATERAL SCREENING REASON FOR EXAM: Female, 71 years old. Routine annual screening examination. PERTINENT HISTORY: Personal history of breast cancer. TECHNIQUE: Digital bilateral breast zahira (3D mammographic acquisition) in the CC and MLO projections. 2-D mediolateral oblique (MLO) and craniocaudad (CC) views of both breasts were obtained. CAD: Full Field Digital Mammography with Computer Added Detection was performed. COMPARISON: Comparison is made with prior study dated 07/11/2020 and 08/04/2019. FINDINGS: Breast Composition: There are scattered areas of fibroglandular density. There are no dominant masses or suspicious calcifications. Once again, the patient is status post lumpectomy in the deep central portion of the left breast with resultant postoperative deformity and scarring. There is evidence of skin thickening along the inferior anterior aspect of the left breast. No other significant abnormalities are identified. There has been no significant change since the prior study. BI/SCREENING MAMM (CAD), BILAT IMPRESSION: Stable bilateral screening mammogram. Yearly follow-up mammogram recommended. (A) ASSESSMENT CATEGORY: BIRADS Category 2: Benign. A letter regarding these results will be sent to the patient by the facility within 30 days. Approximately 10% of breast cancers are not detected by mammography. A normal mammogram should not delay biopsy of a clinically suspicious abnormality. [id number] Electronically Signed: Travis Persaud MD at 14:04 EST , Service support ,
== END 2021-07-18 23:59 | disposition short-term general hospital (02) ==
LOC: OPBI 12:22
PROVIDERS: PCP Family Medicine; Referring Provider Family Medicine; Visit Provider Family Medicine
DX: Z12.31 Encounter for screening mammogram for malignant neoplasm of breast (principal); D05.12 Intraductal carcinoma in situ of left breast
CPT/HCPCS: 77067

== ENCOUNTER 2021-08-05 08:58 | Outpatient (CLI) | payer MEDICARE, SELFPAY ==
[2019-08-21 12:53] VITALS: BMI 33.0
--- NOTE | 2021-08-05 08:59 | CDU_ITS ---
Reason For Study: carotid stenosis Rt. Velocities/BP Lt. Velocities/BP Prox CCA 66.9/9.5 cm/sec. Prox CCA 81.4/40.4 cm/sec. Mid CCA 59.1/17.3 cm/sec. Mid CCA 79.6/30.8 cm/sec. Dist CCA 64.3/17.3 cm/sec. Dist CCA 64.8/21.2 cm/sec. Prox ECA 99.5/14.7 cm/sec. Prox ICA 176.2/53.3 cm/sec. Rt. Vert. 17.7/8.1 cm/sec. Mid ICA 207.0/68.7 cm/sec. Dist ICA 97.1/35.5 cm/sec. Lt. ICA/CCA = 2.6. Prox ECA 52.6/16.0 cm/sec. Lt. Vert. 137.5/37.1 cm/sec. Right Extracranial There is homogeneous, smooth atherosclerotic plaque noted in the right common carotid artery. There is heterogeneous, irregular atherosclerotic plaque noted in the right internal carotid artery. The right internal carotid artery is occluded. There is intimal thickening but no significant atherosclerotic plaque noted in the right external carotid artery. Antegrade flow is noted in the right vertebral artery. Left Extracranial There is heterogeneous, irregular atherosclerotic plaque noted in the left common carotid artery. There is heterogeneous, irregular atherosclerotic plaque noted in the left internal carotid artery. There is homogeneous, smooth atherosclerotic plaque noted in the left external carotid artery. The left external carotid artery is not well visualized. Antegrade flow is noted in the left vertebral artery. Procedure Carotid Duplex [id number]. This is a Carotid Duplex examination using B-mode, color flow and specral Doppler. The exam was diagnostic. Exam performed in department. VL/Carotid Duplex Ultrasound Interpretation Summary Postoperative changes of the right carotid bulb with no flow identified within the right internal carotid artery Less than 50% stenosis right external carotid artery Irregular plaque within the proximal left internal carotid artery with 50 to 69 % stenosis of the left internal carotid artery Less than 50% stenosis left external carotid artery Increased velocity left vertebral artery Findings appears similar to the previous examination of July 11, 2020 Ordering Physician: Kole Talavera Performed By: Pete Sherman RVT
== END 2021-08-05 23:59 | disposition home or self-care (01) ==
LOC: CVS 08:59
PROVIDERS: PCP Family Medicine; Referring Provider Surgery; Visit Provider Surgery
DX: I65.23 Occlusion and stenosis of bilateral carotid arteries (principal)
CPT/HCPCS: 93880

== ENCOUNTER → 2022-07-29 | Outpatient (CLI) | payer MEDICARE, SELFPAY ==
[2019-08-21 12:53] VITALS: BMI 33.0
--- NOTE | 2022-07-29 12:17 | BI_ITS ---
MAMMOGRAPHY - BILATERAL SCREENING REASON FOR EXAM: Female, 72 years old. Routine annual screening examination. PERTINENT HISTORY: Personal history of breast cancer. Prior left lumpectomy with radiation treatment. TECHNIQUE: Digital bilateral breast mery (3D mammographic acquisition) in the CC and MLO projections. 2-D mediolateral oblique (MLO) and craniocaudad (CC) views of both breasts were obtained. CAD: Full Field Digital Mammography with Computer Added Detection was performed. COMPARISON: Comparison is made with prior study dated 07/18/2021 and 07/11/2020. FINDINGS: Breast Composition: There are scattered areas of fibroglandular density. The patient is status post lumpectomy in the deep central portion of the left breast with resultant postoperative scarring in the skin thickening and breast deformity. There has been no change. Stable small benign appearing bilateral axillary nodes. No other significant abnormalities are identified. There has been no significant change since the prior study. BI/SCRN MAMM (CAD)W/MERY BILAT IMPRESSION: Stable bilateral screening mammogram. Yearly follow-up mammogram recommended. (A) ASSESSMENT CATEGORY: BIRADS Category 2: Benign. A letter regarding these results will be sent to the patient by the facility within 30 days. Approximately 10% of breast cancers are not detected by mammography. A normal mammogram should not delay biopsy of a clinically suspicious abnormality. [id number] Electronically Signed: Travis Persaud MD at 13:20 EST ,
--- NOTE | 2022-07-29 12:53 | CDU_ITS ---
Reason For Study: Stenosis Rt. Velocities/BP Lt. Velocities/BP Prox CCA 59.8/12.6 cm/sec. Prox CCA 67.4/22.1 cm/sec. Mid CCA 55.1/14.5 cm/sec. Mid CCA 66.6/25.6 cm/sec. Dist CCA 51.3/13.5 cm/sec. Dist CCA 86.4/37.1 cm/sec. Prox ECA 94.9/19 cm/sec. Prox ICA 213.3/78.5 cm/sec. Rt. Vert. 15.1/6.4 cm/sec. Mid ICA 240.2/88.2 cm/sec. Dist ICA 68.1/20.6 cm/sec. Lt. ICA/CCA = 3.56. Prox ECA 42.1/9 cm/sec. Lt. Vert. 104.7/37.1 cm/sec. Right Extracranial There is homogeneous, smooth atherosclerotic plaque noted in the right common carotid artery. There is heterogeneous, irregular atherosclerotic plaque noted in the right internal carotid artery. The right internal carotid artery is occluded. There is intimal thickening but no significant atherosclerotic plaque noted in the right external carotid artery. Abnormal waveform morphology noted in the right vertebral artery. Left Extracranial There is heterogeneous, irregular atherosclerotic plaque noted in the left common carotid artery. There is heterogeneous, irregular atherosclerotic plaque noted in the left internal carotid artery. There is heterogeneous, irregular atherosclerotic plaque noted in the left external carotid artery. Antegrade flow is noted in the left vertebral artery. Procedure Carotid Duplex [id number]. This is a Carotid Duplex examination using B-mode, color flow and specral Doppler. Preliminary to Janine DAIGLE. Exam performed in department. VL/Carotid Duplex Ultrasound Interpretation Summary Chronically occluded right internal carotid artery. Less than 50% stenosis right external carotid artery Diminished antegrade flow right vertebral Irregular calcific plaque at the proximal and mid left internal carotid artery with greater than 70% stenosis Less than 50% stenosis left external carotid artery Antegrade flow left vertebral Findings suggest slight progression of disease involve the left internal caroti d artery from the previous study of July 2021 Ordering Physician: Kole Talavera Referring Physician: Fadia Gordon M.D. Performed By: Randi El RVT
== END | disposition home or self-care (01) ==
PROVIDERS: PCP Family Medicine; Referring Provider Surgery; Visit Provider Surgery
DX: Z12.31 Encounter for screening mammogram for malignant neoplasm of breast (principal); I65.23 Occlusion and stenosis of bilateral carotid arteries; D05.12 Intraductal carcinoma in situ of left breast; Z98.890 Other specified postprocedural states
CPT/HCPCS: 77063; 77067; 93880

== ENCOUNTER → 2022-08-04 | Outpatient (CLI) | payer MEDICARE, SELFPAY ==
[2019-08-21 12:53] VITALS: BMI 33.0
[2022-08-04 15:24] LABS: Cholesterol 125 mg/dL (200); High Density Lipoprotein 47 mg/dL; Triglycerides 208 mg/dL; Very Low Density Lipoprotein 42 mg/dL (5-40)
== END | disposition home or self-care (01) ==
LOC: MTLAB 12:52
PROVIDERS: PCP Family Medicine; Referring Provider Family Medicine; Visit Provider Family Medicine
DX: E11.69 Type 2 diabetes mellitus with other specified complication (principal); E78.5 Hyperlipidemia, unspecified
CPT/HCPCS: 36415; 80061

== ENCOUNTER → 2023-02-01 | Outpatient (CLI) | payer MEDICARE, SELFPAY ==
[2019-08-21 12:53] VITALS: BMI 33.0
--- NOTE | 2023-02-01 09:42 | CDU_ITS ---
Reason For Study: Bilateral Carotid Stenosis Rt. Velocities/BP Lt. Velocities/BP Prox CCA 63.4/14.2 cm/sec. Prox CCA 83.3/34.0 cm/sec. Mid CCA 47.8/13.8 cm/sec. Mid CCA 70.5/26.7 cm/sec. Dist CCA 52.5/14.7 cm/sec. Dist CCA 66.6/27.0 cm/sec. Prox ECA 103.5/17.6 cm/sec. Prox ICA 315.2/97.0 cm/sec. Rt. Vert. 15.6/6.5 cm/sec. Mid ICA 220.9/84.1 cm/sec. Dist ICA 85.1/26.7 cm/sec. Lt. ICA/CCA = 4.47. Prox ECA 123.1/39.8 cm/sec. Lt. Vert. 121.2/31.2 cm/sec. Right Extracranial There is homogeneous, smooth atherosclerotic plaque noted in the right common carotid artery. There is heterogeneous, irregular atherosclerotic plaque noted in the right internal carotid artery. The right internal carotid artery is occluded. There is heterogeneous, irregular atherosclerotic plaque noted in the right external carotid artery. Abnormal waveform morphology noted in the right vertebral artery. Left Extracranial There is intimal thickening but no significant atherosclerotic plaque noted in the left common carotid artery. There is heterogeneous, irregular atherosclerotic plaque noted in the left internal carotid artery. There is heterogeneous, irregular atherosclerotic plaque noted in the left external carotid artery. Antegrade flow is noted in the left vertebral artery. Procedure Carotid Duplex [id number]. This is a Carotid Duplex examination using B-mode, color flow and specral Doppler. The exam was diagnostic. Exam performed in department. Preliminary findings reported to Mckayla DAIGLE at [facility]. VL/Carotid Duplex Ultrasound Interpretation Summary Chronic occlusion right internal carotid artery Diminished flow right vertebral flow antegrade Greater than 70% stenosis left proximal internal carotid artery Less than 50% stenosis left external carotid artery Greater than 50% stenosis left vertebral From the previous examination of July 29, 2022 there is progressive velocity increase within the left proximal internal carotid artery from a previous 240 cm/s to a current 315 cm/s. Ordering Physician: Kole Talavera Referring Physician: Fadia Chapa Performed By: Bobby Ingram RVT
== END | disposition home or self-care (01) ==
LOC: CVS 09:37
PROVIDERS: PCP Family Medicine; Referring Provider Surgery; Visit Provider Surgery
DX: I65.22 Occlusion and stenosis of left carotid artery (principal)
CPT/HCPCS: 93880

== ENCOUNTER → 2023-02-19 | Outpatient (CLI) | payer MEDICARE, SELFPAY ==
[2019-08-21 12:53] VITALS: BMI 33.0
--- NOTE | 2023-02-19 07:47 | CT_ITS ---
INDICATION: aggressive carotid stenosis EXAMINATION: CTA NECK - CTA Neck WO/W Contrast Injection TECHNIQUE: Routine carotid CT angiogram protocol was performed without and with IV contrast. NASCET criteria using the distal ICAs for comparison were used for evaluation of stenoses. 3D reconstructions were reviewed. A radiation dose optimization technique was used for this scan. IV Contrast dosage and agent: 100 cc [id number] RADIATION DOSAGE (If Supplied By Facility): CTDIvol = ( 20.12 ) mGy, DLP = ( 586.89 ) mGycm COMPARISON: Prior study dated: Carotid Doppler ultrasound 02/01/2023 FINDINGS: AORTIC ARCH AND BRANCHES: Vessel origins patent. RIGHT CCA: No occlusion, significant stenosis or dissection. RIGHT ICA: Occluded at the origin. LEFT CCA: No occlusion, significant stenosis or dissection. LEFT ICA: 70% stenosis at the bifurcation. RIGHT VERTEBRAL ARTERY: No occlusion, significant stenosis or dissection. LEFT VERTEBRAL ARTERY: No occlusion, significant stenosis or dissection. NECK SOFT TISSUES: Unremarkable. LUNG APICES: Clear. BONES: Mild degenerative changes. CT/CTA Neck W/WO Contrast IMPRESSION: Occluded right ICA at the origin. 70% stenosis left ICA at the bifurcation. Electronically Signed: Trevor García MD at 20:03 EDT ,
== END | disposition home or self-care (01) ==
LOC: CT 07:47
PROVIDERS: PCP Family Medicine; Referring Provider Surgery; Visit Provider Surgery
DX: I65.23 Occlusion and stenosis of bilateral carotid arteries (principal)
CPT/HCPCS: 70498; Q9967; A4216

== ENCOUNTER → 2023-03-17 | Outpatient (CLI) | payer MEDICARE, SELFPAY ==
[2019-08-21 12:53] VITALS: BMI 33.0
--- NOTE | 2023-03-17 13:17 | STRESSREP ---
Stress Test Report Pharmacologic myocardial perfusion stress test. 73-year-old lady for preoperative carotid evaluation. Resting EKG demonstrates sinus rhythm with a rate of 67 bpm. Resting blood pressure is 130/80 mmHg. 0.4 mg of regadenoson was infused per usual protocol followed by rapid intravenous saline flush injection. Continuous EKG monitoring was performed. The maximum heart rate was 142 bpm which was 95% of max impacted heart rate the maximum workload was 1 metabolic equivalent. At rest there were no ST or T wave changes noted to suggest ischemia and at peak infusion nonspecific ST changes were noted which did not meet the criteria for ischemia. No clinical angina is noted. The final blood pressure was 132/78 mmHg. Myocardial perfusion protocol. 13.6 mCi of technetium 99m sestamibi was injected at rest. 0.4 mg of regadenoson was infused per usual protocol. At peak infusion 45 mCi of technetium 99m sestamibi was injected stress images were obtained stress and rest images were reconstructed and compared in the short axis vertical long and horizontal long axis. Gated images were also obtained. Perfusion SPECT analysis: Review of the stress images demonstrate normal uptake of tracer noted in all areas of the myocardium. The resting images similar demonstrated normal uptake of tracer noted in all areas of the myocardium. No areas of reversibility are noted to suggest ischemia and no previous infarct is noted. Gated SPECT analysis: The gated ejection fraction is 82%. Conclusion: Normal pharmacologic myocardial perfusion stress test. Preserved ejection fraction.
== END | disposition home or self-care (01) ==
LOC: CVS 06:18
PROVIDERS: PCP Family Medicine; Referring Provider Surgery Trauma Surgery; Visit Provider Surgery Trauma Surgery
DX: Z01.810 Encounter for preprocedural cardiovascular examination (principal)
CPT/HCPCS: 78452; 93017; A9500; A4216; J2785

== ENCOUNTER 2023-04-06 10:54 | Inpatient (IN) | payer MEDICARE, SELFPAY ==
[2019-08-21 12:53] VITALS: BMI 33.0
--- NOTE | 2023-03-17 06:23 | EKG12_ITS ---
Test Reason : PRE-OP Blood Pressure : / mmHG Vent. 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
[2023-03-29 11:30] LABS: Hematocrit 35.1 % (37-47); Hemoglobin 11.1 g/dL (12.0-15.0); Mean Corp Hgb Conc 31.6 g/dL (32-36); Mean Corpuscular Hgb 30.5 pg (27.0-32.0); Mean Corpuscular Volume 96.4 fL (81-99); Mean Platelet Vol. 9.8 fl (6.2-12.0); Platelet Count 291 K/mm3 (150-450); RBC Distribution Width CV 13.2 % (11.6-14.6); Red Blood Count 3.64 M/mm3 (4.2-5.4); White Blood Count 6.7 K/mm3 (4.4-11.0)
[2023-03-29 12:02] LABS: Anion Gap 6 (5-15); BUN 17 mg/dL (7-18); BUN/Creat Ratio 14.2 RATIO (10-20); Chloride 104 mmol/L (98-107); EST Glomerular Filtration Rate 47 mL/min (>60); Est Glom Filt Rate - Afr Amer 57 mL/min (>60); Glucose 144 mg/dL (74-106); Potassium 4.2 mmol/L (3.5-5.1); Sodium Level 137 mmol/L (136-145)
[2023-03-29 12:03] LABS: Hemoglobin A1c 7.7 % (3.8-5.6)
[2023-04-06] VITALS (16 sets, daily range): BP systolic 102–157; BP diastolic 50–73; PULSE 52–73; RESP 12–20; TEMP 36.1–36.6; O2SAT 92–98; BMI 30.3; BMI 30.5
[2023-04-06] MEDS: Lactated Ringers 1,000 ML 15 ML IV (07:33)
[2023-04-06 08:12] LABS: Bedside Glucose 192 mg/dL (74-106)
--- NOTE | 2023-04-06 08:45 | HP.PCM_ITS ---
HPI - General HPI Narrative CELENA KRISHNA, is a 73 F who presents with asymptomatic left carotid stenosis. She previously underwent right CEA with eventual asymptomatic occlusion of the vessel. FORMERLY [facility], [facility] Medical History (Updated 04/06/23 @ 08:[address] Ernesto Duarte MD) Abnormal mammogram of left breast Bilateral carotid artery stenosis Breast cancer (06/2019) Cancer Cardiology follow-up encounter Diabetes Ductal carcinoma in situ (DCIS) of left breast Essential (primary) hypertension High cholesterol History of stress test HLD (hyperlipidemia) Non-smoker Obesity Post-menopausal Screening mammogram for breast cancer Shortness of breath on exertion Skin lesion Type 2 diabetes mellitus Home Medications amlodipine 10 mg tablet 10 mg PO QDAY 11/18/17 [History Last Taken 04/06/23] lisinopril 40 mg tablet 40 mg PO QDAY 11/18/17 [History Last Taken 04/06/23] aspirin 81 mg tablet,delayed release (Adult Low Dose Aspirin) 81 mg PO DAILY 05/12/18 [History Last Taken 04/05/23] atorvastatin 40 mg tablet 40 mg PO DAILY 05/12/18 [History Last Taken 04/05/23] metformin 500 mg tablet 500 mg PO QHS 05/12/18 [History Last Taken Unknown] tamoxifen 10 mg tablet 20 mg PO DAILY 12/05/19 [History Last Taken Unknown] sitagliptin phosphate 25 mg tablet (Januvia) 100 mg PO DAILY 02/03/23 [History Last Taken Unknown] metoprolol succinate 50 mg tablet,extended release 24 hr 100 mg PO QDAY 02/24/23 [History Last Taken 04/06/23] semaglutide 0.25 mg or 0.5 mg (2 mg/3 mL) subcutaneous pen injector (Ozempic) 0.25 mg subcut QWEEK 02/24/23 [History Last Taken Unknown] ticagrelor 90 mg tablet (Brilinta) 90 mg PO BID #60 tabs 03/03/23 [Rx Last Taken 04/06/23] Allergy/AdvReac Type Severity Reaction Status Date / Time No Known Allergies Allergy Verified 03/10/23 14:49 Family History Father CAD (coronary artery disease) COPD (chronic obstructive pulmonary disease) Mother CVA (cerebral vascular accident) Hypertension Surgical History (Updated 03/10/23 @ 15:07 by Ethel Tineo) H/O tubal ligation History of lumpectomy of left breast (08/04/19) History of right-sided carotid endarterectomy (2012) Hx of bilateral cataract extraction ROS Constitutional Constitutional: Denies chills, fever(s), frequent falls, lethargy or weakness Eyes Eyes: Denies blind spots, change in vision or loss of vision ENT HEENT: Denies bleeding gums, hoarseness or sore throat Cardiovascular Cardiovascular: Denies abdominal pain, bluish discoloration of hand/feet, chest pain with activity, claudication, cold extremities, cyanosis, dyspnea on exertion, erythema on extremities, irregular heart rhythm, leg edema, leg ulcers, numbness in extremities or weakness in extremities Respiratory/Chest Respiratory/Chest: Denies cough, excessive phlegm production, shortness of breath at rest, shortness of breath with exertion or wheezing Gastrointestinal Gastrointestinal: Denies anorexia, change in stool character, constipation, diarrhea, melena or rectal bleeding Genitourinary Genitourinary: Denies dysuria or hematuria Musculoskeletal Musculoskeletal: Denies abnormal gait Integumentary Integumentary: Reports other Details: ; Denies erythema, non-healing lesions or wounds Neurologic Neurologic: Denies abnormal speech, focal weakness, headache(s), loss of vision, numbness, paresthesias or sensory deficit Hematologic/Lymphatic Hematologic/Lymphatic: Denies easy bleeding, easy bruising or lymphadenopathy Vital Signs Vital Signs Vital Signs: 04/06/23 06:57 04/06/23 07:05 04/06/23 08:15 Temperature 96.9 F L Temperature Source Temporal Pulse Rate 73 Respiratory Rate 16 Respiratory Pattern Normal Blood Pressure 127/73 H Blood Pressure Mean 91 Blood Pressure Source Monitor Blood Pressure Position Semi-Fowlers Blood Pressure Location Right Arm Pulse Ox 98 Oxygen Delivery Method Room Air CLA-BSI maintained [Right Wrist/Radial Arterial Line] Yes Weight Weight: 166 lb Body Mass Index (BMI) 30.3 Physical Exam Const alert, oriented x3, no apparent distress and healthy appearing General Appearance: cooperative; Negative for combative or lethargic Orientation / Consciousness: awake Exam Limitations: no limitations HEENT Head and Scalp: normocephalic and atraumatic Eyes EOMs intact bilaterally General Eye: normal appearance of both eyes Neck full ROM, no lymphadenopathy, thyroid normal and No no carotid bruits General: trachea midline; Negative for lymphadenopathy or tenderness Thyroid: thyroid normal Lymph Lymphatic: Negative for no lymphadenopathy noted Resp normal respiratory effort, no use of accessory muscles and clear to auscultation bilaterally Effort and Inspection: Negative for labored, stridor or audible wheezes Cardio regular rate, regular rhythm and no murmurs Peripheral Pulses: brachial pulses present, radial pulses present, femoral pulses present, popliteal pulses present, posterior tibial pulses present and dorsalis pedis pulses present Back/Spine Cervical Spine: cervical ROM normal Extremity full ROM, normal capillary refill and no clubbing, cyanosis or edema Skin no rashes or lesions noted and no wounds Neuro oriented x3, CN's II-XII intact bilaterally, no focal motor deficits and no sensory deficits noted Psych thought process normal, cooperative, affect normal, speech normal and activity/motor behavior normal Results Lab / Micro Data 03/29/23 11:09 03/29/23 11:09 Labs: Laboratory Results - last 24 hr 04/06/23 07:07: POC Glucose 192 H Assessment & Plan Assessment/Plan (1) Left carotid artery stenosis: PLAN: -TCAR
--- NOTE | 2023-04-06 11:30 | PCM.OPRPT ---
Report of Operation Date of Procedure: 04/06/23 Pre-Operative Diagnosis: left carotid stenosis Post-Operative Diagnosis: same Surgery/Procedure Performed:: left carotid stent Surgeon: Ernesto Duarte Type of Anesthesia: General Drains: 19 Fr LOUIS Estimated Blood Loss (mL): 20 Description of Procedure: HPI: Patient is a 73-year-old female with asymptomatic left carotid artery stenosis. She previously had a right carotid occlusion and complete table [place] of [place]. She is felt to have appropriate anatomy for carotid stenting so she presents now for transcarotid artery revascularization stenting. Description of procedure: Upon obtaining form consent and verification correct patient procedure site patient was taken to the [facility] where she was placed under general anesthesia. She was then positioned prepped and draped in usual fashion a time was performed. Transverse incision was made 1 fingerbreadth superior to the clavicle and Bovie electrocautery was dissect down through subcutaneous tissue to the level of the platysma. The platysma was divided and self-retaining retractors were put in position with further dissection carried down to the sternocleidomastoid. Given the more medial nature of the tortuous common carotid artery the sternocleidomastoid was dissected free on its medial aspect and retracted laterally exposing the carotid sheath. Sharp dissection used to dissect free the jugular vein which was retracted lateral exposing the common carotid artery. This was then dissected free proximal distal and a right angle used to place a vessel loop proximally. A 6-0 Prolene pursestring suture was then placed at the intended access point and the patient was then administered heparin after which an ACT was performed to confirm satisfactory degree of anticoagulation. Next the right common femoral vein was accessed in retrograde fashion with a micropuncture needle wire which was then exchanged for micropuncture sheath. The micropuncture sheath Bentson wire is advanced and the micropuncture sheath exchanged for the silk Road venous return sheath. Next the left common carotid artery was accessed in antegrade fashion with a micropuncture needle wire was then exchanged for the micropuncture sheath. Through the micropuncture sheath subtraction angiography was performed of the the carotid vessels and the proximal extent of the lesion identified. The J-wire was then advanced through the micropuncture sheath and the micropuncture sheath exchanged for the silk Road stent delivery sheath. Once this was advanced in the position it was then secured to the skin with silk suture. The flow reversal tubing was then attached first to the arterial sheath and then backbled and attached to the venous return sheath. Once satisfactory function of the flow reversal system was confirmed the common carotid artery was occluded with a vessel loop and oblique views the carotid obtained to confirm satisfactory sheath positioning. Through the stent delivery sheath a 4.5 x 25 angioplasty balloon was advanced in position inflated to nominal and then deflated withdrawn. Next the silk Road en route stent 8 x 30 was advanced into position and deployed. Completion angiography confirmed satisfactory stent positioning with no residual stenosis and no extravasation or dissection. Continued flow reversal was maintained for the mandatory timeframe after which the carotid vessel loop was released. The flow reversal tubing was then detached and the 8 [place] sheath in the femoral access site and withdrawn followed by manual pressure. The pursestring suture in the carotid was secured as the sheath was withdrawn and satisfactory stasis was noted. The patient was reversed with protamine and the vessel assessed with Doppler and found to be patent although just in signal. William topical hemostatic was then placed in the surgical field followed by a 19 [place] channel LOUIS placed deep to the sternocleidomastoid. Incision was then closed with 3-0 Vicryl, 4 Monocryl and Dermabond for the skin. At the conclusion the case patient was awake anesthesia moving all extremities to command with cranial nerves intact. She was then taken to the intensive care unit for hemodynamic and neurologic monitoring.
[2023-04-06] MEDS: oxyCODONE 5 MG Tablet PO (12:02)
[2023-04-06] MEDS: 0.45% Normal Saline 1,000 ML 100 ML IV ×2 (12:02→21:29)
--- NOTE | 2023-04-06 13:15 | CM.UR ---
RN?CM?[facility] [employer]ER?CM?to room to meet with patient for initial transition planning/care coordination?assessment.?RN?CM?introduced self and role at [facility].? Pt voices understanding and consents to?assessment?at this time.? Pt resting in bed in no distress at this time.? Pt is A/O at this time and answers all questions appropriately.?? Care providers, pharmacy, and demographics verified/updated at this time. PCP: Dr Gordon Specialists: Dr Duarte-vascular, Dr Talavera-surgeon Preferred Pharmacy: [facility] [place], [place] Insurance: [id number] [facility] Prescription Benefit:?Yes Living Will/HPOA:?Pt does not currently have LW/HCPOA and declines info at this time.? Pt made aware that she can contact as an out-pt and make appt in the future if she decides she would like to talk with someone about this or would like to utilize [facility] social work for advanced directive completion.? LNOK: , Akbar. Daughter, Mahogany. Son, Govind Living Arrangements: Lives w/ in a one-story home w/a basement where laundry room is. 4 steps to enter home w/railing. Pt states, @ her baseline, she has no difficulty w/the stairs. can assist w/laundry. Pt is indep w/ADL's, manages her own medications and appts, and does most IADL's. 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 Transportation:?Pt states drives self and states no transportation concerns at this time.? also drives. DME: ? Denies using any DME and denies needs.?She does have a walker, available, if needed. HHC/SNF: No hx of either. Denies needs and no needs identified, Pt wishes to return home and states has no concerns with going home at time of discharge.? CM?to follow for any discharge planning/needs.? Pt voices no concerns/needs at this time.? Advised pt to ask for?CM?if any questions/concerns/needs arise.? Voices understanding. PLAN:??Home w/spousal support and discharge plans in place. Imelda WOON?RN?CM
[2023-04-06] MEDS: Acetaminophen 500 MG Tablet 1000 MG PO ×2 (13:27→21:30)
[2023-04-06 15:29] LABS: Bedside Glucose 157 mg/dL (74-106)
[2023-04-06 15:53] LABS: ACT Activated Clotting Time 137 sec (74-137)
[2023-04-06 15:54] LABS: ACT Activated Clotting Time 251 sec (74-137)
[2023-04-06] MEDS: Cefazolin 1 GM/50 ML BAG IV (16:32)
[2023-04-06] MEDS: metFORMIN HCl 500 MG Tablet PO (21:29)
[2023-04-06] MEDS: Atorvastatin Calcium 40 MG Tablet PO (21:29)
[2023-04-06] MEDS: TICAGRELOR 90 MG TABLET PO (21:29)
[2023-04-06 21:35] LABS: Bedside Glucose 115 mg/dL (74-106)
[2023-04-07] VITALS (14 sets, daily range): BP systolic 104–151; BP diastolic 55–77; PULSE 58–76; RESP 11–19; TEMP 36.4–36.6; O2SAT 94–100; BMI 30.5; BMI 30.4
[2023-04-07] MEDS: Cefazolin 1 GM/50 ML BAG IV
[2023-04-07 03:58] LABS: Absolute Lymphocyte Count 1.41 X10^3/uL (0.83-4.51); Absolute Neutrophil Count 4.5 X10^3/uL (2.0-7.7); Basophil# 0.03 X10^3/uL; Basophil% 0.5 % (0-1); Eosinophil# 0.08 X10^3/uL; Eosinophils% 1.2 % (0-5); Hematocrit 27.9 % (37-47); Hemoglobin 9.1 g/dL (12.0-15.0); Lymphocyte # 1.41 X10^3/ul (0.83-4.51); Lymphocyte % 21.6 % (19-41); Mean Corp Hgb Conc 32.6 g/dL (32-36); Mean Corpuscular Volume 94.9 fL (81-99); Mean Platelet Vol. 9.4 fl (6.2-12.0); Monocyte# 0.49 X10^3/uL; Monocyte% 7.5 % (0-10); NRBC Flagged by Analyzer 0 % (0-5); Neutrophil # 4.49 X10^3/uL (2.7-7.7); Neutrophil % 68.7 % (47-70); Platelet Count 233 K/mm3 (150-450); RBC Distribution Width CV 13.2 % (11.6-14.6); RBC Distribution Width SD 45.4 fl (35.1-43.9); Red Blood Count 2.94 M/mm3 (4.2-5.4); White Blood Count 6.5 K/mm3 (4.4-11.0)
[2023-04-07] MEDS: 0.45% Normal Saline 1,000 ML 100 ML IV (06:11)
[2023-04-07] MEDS: Lisinopril 40 MG Tablet PO (07:42)
[2023-04-07] MEDS: Metoprolol(XL)Succ 100 MG Tablet PO (07:42)
[2023-04-07] MEDS: LINAGLIPTIN 5 MG TABLET PO (07:42)
[2023-04-07] MEDS: Aspirin E.C. 81 MG Tablet PO (07:43)
[2023-04-07] MEDS: amLODIPine 10 MG Tablet PO (07:43)
[2023-04-07] MEDS: Tamoxifen 10 MG Tablet 20 MG PO (07:43)
[2023-04-07] MEDS: TICAGRELOR 90 MG TABLET PO (07:43)
[2023-04-07] MEDS: Enoxaparin 40 MG/0.4 ML Syringe SC (07:44)
[2023-04-07] MEDS: Acetaminophen 500 MG Tablet 1000 MG PO (07:47)
[2023-04-07 08:01] LABS: Bedside Glucose 106 mg/dL (74-106)
--- NOTE | 2023-04-07 08:37 | PN.SURG_ITS ---
Subjective Subjective She is doing well this morning. She reports she has been up to the bathroom this morning and had a bit of light-headedness. She has had episodic lightheadedness at home prior to procedure as well, frequently after taking her morning medications. She reports minimal discomfort at both the neck incision and groin puncture sites. She denies headache, difficulty speaking/swallowing, hoarse voice. Her blood pressures have been stable. Nursing reports total 50 cc out of LOUIS drain since procedure yesterday. She was started on supplemental O2 via NC overnight, on 2L this morning. She is not on O2 at home. Objective Data Objective Data Vital Signs: Vital Signs Temp Pulse Resp BP Pulse Ox O2 Del Method O2 Flow Rate 97.9 F 66 16 144/73 H 99 Room Air 2 04/07/23 08:00 04/07/23 08:00 04/07/23 08:00 04/07/23 08:00 04/07/23 08:00 04/07/23 08:00 04/07/23 07:00 Oxygen Flow Rate (L/min) 2 Oxygen Delivery Method Room Air Weight: 165 lb 9.074 oz Body Mass Index (BMI) 30.4 Intake & Output: Intake and Output for Last 24 Hours 04/05/23 04/06/23 04/07/23 23:59 23:59 23:59 Intake Total 1263 / 1263 1156.67 / 1156.67 Output Total Balance 1243 / 1243 1156.67 / 1156.67 Lab / Micro Data 04/07/23 03:50 03/29/23 11:09 Labs: Laboratory Results - last 24 hr 04/06/23 09:33: Activated Clotting Time 137 04/06/23 10:00: Activated Clotting Time 251 H 04/06/23 15:12: POC Glucose 157 H 04/06/23 21:16: POC Glucose 115 H 04/07/23 03:50: WBC 6.5, RBC 2.94 L, Hgb 9.1 L, Hct 27.9 L, MCV 94.9, MCH 31.0, MCHC 32.6, RDW Std Deviation 45.4 H, RDW Coeff of Elder 13.2, Plt Count 233, MPV 9.4, Immature Gran % (Auto) 0.500, Neut % (Auto) 68.7, Lymph % (Auto) 21.6, [place] % (Auto) 7.5, Eos % (Auto) 1.2, Baso % (Auto) 0.5, Absolute Neuts (auto) 4.5, Absolute Lymphs (auto) 1.41, Nucleated RBC % 0 04/07/23 07:40: POC Glucose 106 Physical Exam Const alert, oriented x3 and no apparent distress General Appearance: cooperative and comfortable HEENT normocephalic, head/scalp atraumatic, hearing grossly normal bilaterally, external ears normal and external nose normal Eyes EOMs intact bilaterally General Eye: normal appearance of both eyes Neck Neck Narrative: Left neck incision site with surgical glue intact. No dehiscence, drainage, focal swelling, warmth, erythema. Minimal bruising around the incision site. Resp normal respiratory effort, no retractions and no use of accessory muscles Effort and Inspection: able to speak in complete sentences and symmetric chest movement Cardio regular rate and regular rhythm Extremity Extremity Narrative: R groin puncture site with dressing C/D/I. There is mild bruising noted around the site, but no significant swelling and soft to palpation. There is no erythema, warmth, drainage. Skin no rashes or lesions noted Trauma: no lacerations or abrasions Wounds: wounds noted Wound Narrative: Surgical sites as noted above Neuro CN's II-XII intact bilaterally, moves all extremities, no focal motor deficits and no sensory deficits noted Speech: speech normal Psych mental status grossly normal, cooperative, affect normal, speech normal and activity/motor behavior normal Attitude: calm and engaged Assessment & Plan Assessment/Plan (1) Left carotid artery stenosis: PLAN: She is s/p L TCAR POD#1. She has remained neurologically and hemo dynamically stable. Her pain is well controlled. She is voiding without difficulty. She is tolerating diet progression. Will have her up to the chair and to ambulate later this morning with nursing/ PT/OT. Will wean O2. Anticipate discharge this afternoon.
[2023-04-07 11:31] LABS: Bedside Glucose 137 mg/dL (74-106)
--- NOTE | 2023-04-07 11:31 | PCM.DC.SUM ---
Providers Date of Admission: 04/06/23 Primary Care Physician: Dr. Fadia Gordon MD Reason For Visit: Occlusion and stenosis of left carotid artery Diagnosis Discharge Diagnosis (1) Left carotid artery stenosis: Status: Acute Code(s): I65.22 - Occlusion and stenosis of left carotid artery Plan: She is s/p L TCAR POD#1. She has remained neurologically and hemodynamically stable. Her pain is well controlled. She is voiding without difficulty. She is tolerating diet progression. Will have her up to the chair and to ambulate later this morning with nursing/PT/OT. Will wean O2. Anticipate discharge this afternoon. Medications at Discharge Home Medications amlodipine 10 mg tablet 10 mg PO QDAY 11/18/17 lisinopril 40 mg tablet 40 mg PO QDAY 11/18/17 aspirin 81 mg tablet,delayed release (Adult Low Dose Aspirin) 81 mg PO DAILY 05/12/18 metformin 500 mg tablet 500 mg PO QHS 05/12/18 tamoxifen 10 mg tablet 20 mg PO DAILY 12/05/19 sitagliptin phosphate 25 mg tablet (Januvia) 100 mg PO DAILY 02/03/23 metoprolol succinate 50 mg tablet,extended release 24 hr 100 mg PO QDAY 02/24/23 semaglutide 0.25 mg or 0.5 mg (2 mg/3 mL) subcutaneous pen injector (Ozempic) 0.25 mg subcut QWEEK 02/24/23 ticagrelor 90 mg tablet (Brilinta) 90 mg PO BID #60 tabs 03/03/23 atorvastatin 80 mg tablet 80 mg PO QHS #30 tabs 04/07/23 oxycodone 5 mg tablet 5 mg PO Q8H PRN PRN Pain Score 4-10 3 days #9 tabs 04/07/23 Hospital Course Operations - (L TCAR) Summary of Care Provided Hospital Course: Patient underwent left TCAR on 04/06/23 which was without complication. Postoperatively, she was routinely admitted to the ICU for hemodynamic and neurologic monitoring and has been stable in that regard throughout her admission. The LOUIS drain was removed without issue this morning. Her L neck incision site and R groin puncture site are satisfactory in appearance without evidence of hematoma or infection. She has voided without difficulty, is tolerating a full diet, is ambulating without issues, and her surgical site pain is well controlled. She lives independently at home with her and feels ready and safe to discharge home. She is medically stable for discharge home today. To optimize medical management given new L carotid stent and known R ICA occlusion, will increase to atorvastatin 80mg daily as tolerated, will continue Brilinta x30 days postop at minimum, continue ASA 81mg daily. She will follow-up in our office as scheduled on 04/20/2023 at which time will order serial imaging to monitor. Physical Exam Const alert, oriented x3 and no apparent distress General Appearance: cooperative and comfortable HEENT normocephalic, head/scalp atraumatic, hearing grossly normal bilaterally, external ears normal and external nose normal Eyes EOMs intact bilaterally General Eye: normal appearance of both eyes Neck Neck Narrative: Left neck incision site with surgical glue intact. No dehiscence, drainage, focal swelling, warmth, erythema. Minimal bruising around the incision site. Resp normal respiratory effort, no retractions and no use of accessory muscles Effort and Inspection: able to speak in complete sentences and symmetric chest movement Cardio regular rate and regular rhythm Extremity Extremity Narrative: R groin puncture site with dressing C/D/I. There is mild bruising noted around the site, but no significant swelling and soft to palpation. There is no erythema, warmth, drainage. Skin no rashes or lesions noted Trauma: no lacerations or abrasions Wounds: wounds noted Wound Narrative: Surgical sites as noted above Neuro CN's II-XII intact bilaterally, moves all extremities, no focal motor deficits and no sensory deficits noted Speech: speech normal Psych mental status grossly normal, cooperative, affect normal, speech normal and activity/motor behavior normal Attitude: calm and engaged Weight / BMI Weight Weight: 165 lb 9.074 oz Body Mass Index (BMI) 30.4 ABG / Lab / Microbiology Data 04/07/23 03:50 03/29/23 11:09 Laboratory: Laboratory Results - last 24 hr 04/06/23 09:33: Activated Clotting Time 137 04/06/23 10:00: Activated Clotting Time 251 H 04/06/23 15:12: POC Glucose 157 H 04/06/23 21:16: POC Glucose 115 H 04/07/23 03:50: WBC 6.5, RBC 2.94 L, Hgb 9.1 L, Hct 27.9 L, MCV 94.9, MCH 31.0, MCHC 32.6, RDW Std Deviation 45.4 H, RDW Coeff of Elder 13.2, Plt Count 233, MPV 9.4, Immature Gran % (Auto) 0.500, Neut % (Auto) 68.7, Lymph % (Auto) 21.6, [place] % (Auto) 7.5, Eos % (Auto) 1.2, Baso % (Auto) 0.5, Absolute Neuts (auto) 4.5, Absolute Lymphs (auto) 1.41, Nucleated RBC % 0 04/07/23 07:40: POC Glucose 106 D/C Instructions Discharge Diet: No restrictions May shower in (days): 1 Weight Bearing Status: Weight bearing as tolerated Lifting Restricted to (Lbs): 20 Lifting Restrictions: Do not lift greater than 20 pounds for 3 weeks Call your doctor if your incision/area has: Sudden Increased Bleeding, Increased Pain/ Swelling and Foul Smelling Discharge Call your doctor if you observe: Fever of 101 or Higher and Uncontrolled pain Additional Instructions: You have a small bandage over the site of the surgical drain we removed today. You may remove this bandage tomorrow. If there is still some drainage, you may cover this area with a bandaid. If there is no drainage, then you may leave this open to air. The incision on your neck is covered with surgical glue which will continue to protect it. You do not need to have any additional dressings over the incision. The surgical glue will peel off on its own over the next few weeks. Please do not pick at the glue. The puncture site in your R groin has a small dry dressing over it. You may remove this tomorrow and leave it uncovered after that. You may shower tomorrow. It is okay for soap and water to rinse over the incision. Pat to dry. You should not submerge the incision site in water such as to take a bath or go swimming for 3 weeks. You should not lift greater than 20 pounds for 3 weeks. Continue to take your aspirin and Brilinta as prescribed. I have increased your atorvastatin (lipitor) to 80mg daily. A new prescription has been sent to your pharmacy. I have prescribed oxycodone 5mg tablet to be taken by mouth every 8 hours as needed for pain. You may take this in combination with Tylenol. Do not combine this with any other prescription pain medications. Please follow-up in the office as scheduled on 04/20/23 or sooner as needed. Please call the office at [phone] with any questions or concerns. Please Follow Up With: Suzy Benedict PA When: 04/20/2023 Meaningful Use Info Meaningful Use Diagnoses (Choose all that apply): None applicable Discharge Plan Admission Admit Date/Time: 04/06/23 10:54 Attending Provider: Ernesto Duarte Primary Care Provider: Fadia Gordon Consulting Providers: Kole Talavera Discharge Orders/Prescriptions Prescriptions: New atorvastatin 80 mg tablet 80 mg PO QHS Qty: 30 2RF oxycodone 5 mg Tablet 5 mg PO Q8H PRN PRN (Reason: Pain Score 4-10) 3 Days Qty: 9 0RF Continued metformin 500 mg tablet 500 mg PO QHS lisinopril 40 mg tablet 40 mg PO QDAY amlodipine 10 mg tablet 10 mg PO QDAY aspirin [Adult Low Dose Aspirin] 81 mg tablet,delayed release (DR/EC) 81 mg PO DAILY metoprolol succinate 50 mg tablet extended release 24 hr 100 mg PO QDAY Januvia 25 mg tablet 100 mg PO DAILY Ozempic 0.25 mg or 0.5 mg (2 mg/3 mL) pen injector 0.25 mg subcut QWEEK Rx Instructions: for 4 weeks Brilinta 90 mg tablet 90 mg PO BID Qty: 60 1RF Rx Instructions: Start medication as directed 5 days prior to scheduled procedure. tamoxifen 10 MG tablet 20 mg PO DAILY Discontinued atorvastatin 40 mg tablet 40 mg PO DAILY Referrals / Follow Up: Fadia Gordon MD [Primary Care Provider] - Disposition Disposition (needs filled in before D/C Order can be placed): Home, Self Care
== END 2023-04-07 13:26 | disposition home or self-care (01) | DRG 36 ==
LOC: SDC 11:29 → ICU 11:29
PROVIDERS: Anesthesiology; Admitting Provider Surgery Trauma Surgery; PCP Family Medicine; Referring Provider Surgery Trauma Surgery; Visit Provider Surgery Trauma Surgery
PROC: 037J3DZ Dilation of Left Common Carotid Artery with Intraluminal Device, Percutaneous Approach (ICD-10-PCS; CPT 37236; principal; 2023-04-06 08:00)
DX: I65.22 Occlusion and stenosis of left carotid artery (principal); E11.9 Type 2 diabetes mellitus without complications; I10 Essential (primary) hypertension; E78.5 Hyperlipidemia, unspecified; Z79.02 Long term (current) use of antithrombotics/antiplatelets; Z79.84 Long term (current) use of oral hypoglycemic drugs; Z79.82 Long term (current) use of aspirin
CPT/HCPCS: 36415; 37215; 76937; 80048; 82962; 83036; 85025; 85027; 85347; 86850; 86900; 86901; 93005; 94668; 97802; 99252; A4648; C1725; C1769; C1876; C1884; C1894; J7040; J7120; Q9967; G0463

== ENCOUNTER → 2023-05-07 | Outpatient (CLI) | payer MEDICARE, SELFPAY ==
[2019-08-21 12:53] VITALS: BMI 33.0
--- NOTE | 2023-05-07 14:41 | CDU_ITS ---
Reason For Study: Lt ICA TCAR Rt. Velocities/BP Lt. Velocities/BP Prox CCA 71.1/13.5 cm/sec. Prox CCA 82.8/32.2 cm/sec. Mid CCA 69.2/10.7 cm/sec. Mid CCA 90.5/33.3 cm/sec. Dist CCA 53.2/14.5 cm/sec. Dist CCA 71.8/31.1 cm/sec. Prox ECA 99.8/15.1 cm/sec. Prox ICA Rt. Vert. 16.8/7.7 cm/sec. Prox Stent - 66.3/26.7 cm/s Mid Stent - 133.9/53.5 cm/s Dist Stent - 135.7/57.2 cm/s. Mid ICA 106.5/38.9 cm/sec. Dist ICA 95.5/29.8 cm/sec. Lt. ICA/CCA = 1.5. Prox ECA 50.4/12.4 cm/sec. Lt. Vert. 110.1/42.6 cm/sec. Right Extracranial There is heterogeneous, smooth atherosclerotic plaque noted in the right common carotid artery. There is heterogeneous, irregular atherosclerotic plaque noted in the right internal carotid artery. The right internal carotid artery is occluded. There is heterogeneous, smooth atherosclerotic plaque noted in the right external carotid artery. Antegrade flow is noted in the right vertebral artery. Left Extracranial There is homogeneous, smooth atherosclerotic plaque noted in the left common carotid artery. There is heterogeneous, irregular atherosclerotic plaque noted in the left internal carotid artery. Stent is noted. The left external carotid artery is not well visualized. Antegrade flow is noted in the left vertebral artery. Procedure Carotid Duplex 84117. This is a Carotid Duplex examination using B-mode, color flow and specral Doppler. The exam was diagnostic. Exam performed in department. VL/Carotid Duplex Ultrasound Interpretation Summary Right internal carotid artery known occlusion Moderate (50-69%) stenosis left extracranial internal carotid. Patent and antegrade vertebrals bilaterally. Ordering Physician: Suzy Benedict Referring Physician: Fadia Gordon M.D. Performed By: Bobby Ingram RVT
== END | disposition home or self-care (01) ==
LOC: CVS 14:41
PROVIDERS: PCP Family Medicine; Referring Provider Physician Assistant; Visit Provider Physician Assistant
DX: I65.23 Occlusion and stenosis of bilateral carotid arteries (principal)
CPT/HCPCS: 93880

== ENCOUNTER → 2023-08-13 | Outpatient (CLI) | payer MEDICARE, SELFPAY ==
[2019-08-21 12:53] VITALS: BMI 33.0
--- NOTE | 2023-08-13 10:26 | BI_ITS ---
MAMMOGRAPHY - BILATERAL SCREENING REASON FOR EXAM: Female, 73 years old. Routine annual screening examination. PERTINENT HISTORY: Personal history of breast cancer. Prior left lumpectomy and radiation treatment. TECHNIQUE: Digital bilateral breast mery (3D mammographic acquisition) in the CC and MLO projections. 2-D mediolateral oblique (MLO) and craniocaudad (CC) views of both breasts were obtained. CAD: Full Field Digital Mammography with Computer Added Detection was performed. COMPARISON: Comparison is made with prior study dated July 29, 2022 and July 18, 2021. FINDINGS: Breast Composition: There are scattered areas of fibroglandular density. There are no dominant masses or suspicious calcifications. The patient is status post lumpectomy in the deep central portion of the left breast with resultant postoperative scarring and breast deformity. Stable small benign-appearing bilateral axillary lymph nodes. No other significant abnormalities are identified. There has been no significant change since the prior study. BI/SCRN MAMM (CAD)W/MERY BILAT IMPRESSION: Stable bilateral screening mammogram. Yearly follow-up mammogram recommended. (A) ASSESSMENT CATEGORY: BIRADS Category 2: Benign. A letter regarding these results will be sent to the patient by the facility within 30 days. Approximately 10% of breast cancers are not detected by mammography. A normal mammogram should not delay biopsy of a clinically suspicious abnormality. [id number] Electronically Signed: Travis Persaud MD at 11:19 EST ,
== END | disposition home or self-care (01) ==
LOC: OPBI 10:25
PROVIDERS: PCP Family Medicine; Referring Provider Surgery; Visit Provider Surgery
DX: Z12.31 Encounter for screening mammogram for malignant neoplasm of breast (principal); Z85.3 Personal history of malignant neoplasm of breast
CPT/HCPCS: 77063; 77067

== ENCOUNTER → 2023-10-19 | Outpatient (CLI) | payer MEDICARE, SELFPAY ==
[2019-08-21 12:53] VITALS: BMI 33.0
[2023-10-19 12:56] LABS: AST(SGOT) 22 U/L (15-37); Alanine Aminotransfer ALT/SGPT 19 U/L (13-56); Anion Gap 6 (5-15); BUN 17 mg/dL (7-18); BUN/Creat Ratio 15.3 RATIO (10-20); Calcium,Total 9.4 mg/dL (8.5-10.1); Chloride 105 mmol/L (98-107); Cholesterol 133 mg/dL (200); Creatinine, Serum 1.11 mg/dL (0.55-1.02); EST Glomerular Filtration Rate 51 mL/min (>60); Est Glom Filt Rate - Afr Amer 62 mL/min (>60); Glucose 123 mg/dL (74-106); High Density Lipoprotein 52 mg/dL; Potassium 4.1 mmol/L (3.5-5.1); Sodium Level 139 mmol/L (136-145); Triglycerides 160 mg/dL; Very Low Density Lipoprotein 32 mg/dL (5-40)
[2023-10-19 13:21] LABS: Protein, Urine (Random) 21.5 mg/dL (<11.9); Protein:Creat Ratio 156 mg/g CRE (0-200)
== END | disposition home or self-care (01) ==
PROVIDERS: PCP Family Medicine; Referring Provider Family Medicine; Visit Provider Family Medicine
DX: E11.59 Type 2 diabetes mellitus with other circulatory complications (principal)
CPT/HCPCS: 36415; 80048; 80061; 82570; 84156; 84450; 84460

== ENCOUNTER → 2023-11-15 | Outpatient (CLI) | payer MEDICARE, SELFPAY ==
[2019-08-21 12:53] VITALS: BMI 33.0
--- NOTE | 2023-11-15 12:48 | CDU_ITS ---
Reason For Study: S/P Lt TCAR, Rt occlusion Rt. Velocities/BP Lt. Velocities/BP Prox CCA 84.4/15.4 cm/sec. Prox CCA 68.5/24.5 cm/sec. Mid CCA 54.1/13.5 cm/sec. Mid CCA 53.1/23.4 cm/sec. Dist CCA 55.1/14.5 cm/sec. Dist CCA 72.9/27.8 cm/sec. Prox ECA 74/17.3 cm/sec. Bulb, 150.3/48 cm/sec. Rt. Vert. 11.1/4.2 cm/sec. Prox ICA 133.9/57.2 cm/sec. Mid ICA 154.3/57.7 cm/sec. Dist ICA 95.5/35.3 cm/sec. Lt. ICA/CCA = 2.26. Lt. Vert. 110.1/33.4 cm/sec. Right Extracranial There is homogeneous, smooth atherosclerotic plaque noted in the right common carotid artery. There is heterogeneous, irregular atherosclerotic plaque noted in the right internal carotid artery. The right internal carotid artery is occluded. There is homogeneous, smooth atherosclerotic plaque noted in the right external carotid artery. Antegrade flow is noted in the right vertebral artery. Left Extracranial There is homogeneous, smooth atherosclerotic plaque noted in the left common carotid artery. There is heterogeneous, irregular atherosclerotic plaque noted in the left internal carotid artery. Stent noted in the CCA distal-ICA prox. Left ECA not visualized. Antegrade flow is noted in the left vertebral artery. 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 Less than 70% stenosis left extracranial internal carotid stent. Patent and antegrade vertebrals bilaterally. Ordering Physician: Suzy Benedict Referring Physician: Fadia Gordon M.D. Performed By: Randi El RVT
== END | disposition home or self-care (01) ==
PROVIDERS: PCP Family Medicine; Referring Provider Physician Assistant; Visit Provider Physician Assistant
DX: I65.22 Occlusion and stenosis of left carotid artery (principal)
CPT/HCPCS: 93880

== ENCOUNTER → 2024-05-03 | Outpatient (CLI) | payer MEDICARE, SELFPAY ==
[2019-08-21 12:53] VITALS: BMI 33.0
== END | disposition home or self-care (01) ==
LOC: CVS 09:35
PROVIDERS: PCP Family Medicine; Referring Provider Physician Assistant; Visit Provider Physician Assistant
DX: I65.23 Occlusion and stenosis of bilateral carotid arteries (principal); Z48.812 Encounter for surgical aftercare following surgery on the circulatory system
CPT/HCPCS: 93880

== ENCOUNTER → 2024-11-09 | Outpatient (CLI) | payer OTHER, SELFPAY ==
[2019-08-21 12:53] VITALS: BMI 33.0
--- NOTE | 2024-11-09 10:41 | CDU_ITS ---
Reason For Study Reason For Study: HX Rt ICA Occlusion / Lt ICA TCAR Rt. Velocities/BP Lt. Velocities/BP Prox CCA 61.4/6.5 cm/sec. Prox CCA 98.4/29.0 cm/sec. Mid CCA 38.4/12.0 cm/sec. Mid CCA 67.4/21.7 cm/sec. Dist CCA 40.6/10.9 cm/sec. Dist CCA 74.7/30.9 cm/sec. Known Rt ICA Occlusion. Lt Prox ICA Stent Noted Prox ECA 85.3/16.0 cm/sec. Prox Stent - 87.5/23.6 cm/s Rt. Vert. 17.1/7.5 cm/sec. Mid Stent - 118.3/41.5 cm/s Dist Stent - 157.8/54.7 cm/s. Mid ICA 147.5/56.8 cm/sec. Dist ICA 129.3/49.0 cm/sec. Lt. ICA/CCA = 2.3. Prox ECA 65.8/10.9 cm/sec. Lt. Vert. 100.8/38.6 cm/sec. Right Extracranial There is homogeneous, smooth atherosclerotic plaque noted in the right common carotid artery. Known ICA Occlusion / HX CEA. There is heterogeneous, irregular atherosclerotic plaque noted in the right external carotid artery. Antegrade flow is noted in the right vertebral artery. Left Extracranial There is intimal thickening but no significant atherosclerotic plaque noted in the left common carotid artery. There is heterogeneous, irregular atherosclerotic plaque noted in the left internal carotid artery. Distal CCA - Prox ICA Stent Noted. The left external carotid artery is not well visualized. Antegrade flow is noted in the left vertebral artery. Procedure Carotid Duplex [id number]. This is a Carotid Duplex examination using B-mode, color flow and specral Doppler. The exam was diagnostic. Exam performed in department. VL/Carotid Duplex Ultrasound Interpretation Summary Occlusion of the right extracranial internal carotid. Mild (<70%) stenosis left extracranial internal carotid. Patent and antegrade vertebrals bilaterally. Ordering Physician: Suzy Benedict Referring Physician: Fadia Gordon Performed By: Bobby Ingram RVT
--- NOTE | 2024-11-09 12:26 | BD_ITS ---
PROCEDURE: DEXA BONE DENSITY STUDY 11/09/2024 REASON FOR EXAM: F, age 74 y/o . Postmenopausal. TECHNIQUE: DXA scan of sites with data reported below. REFERENCE LINKS: [facility] Adult Positions COMPARISON: Prior study dated August 29, 2019. FINDINGS: BMD and T-SCORES Lumbar spine: 1.024 g/cm2, T-score -0.1 Levels: L1 through L4 Change from prior: Loss of 7.8%. Left femoral neck: 0.745 g/cm2, T-score -0.9 Femoral neck comparison data not recommended for monitoring change. Left total hip: 0.884 g/cm2, T-score -0.5 Change from prior: Loss of 10%. Right femoral neck: 0.719 g/cm2, T-score -1.2 Femoral neck comparison data not recommended for monitoring change. Right total hip: 0.899 g/cm2, T-score -0.3 Change from prior: Loss of 7.1%. The World Health Organization has defined the following categories based on bone density: Normal bone density: T-score equal to or greater than -1.0 Osteopenia: T-score between -1.0 and -2.5 Osteoporosis: T-score equal to or less than -2.5 The patient does meet the pharmacological treatment recommendations for prevention of osteoporosis. BD/Dexa Bone Density Study IMPRESSION: OSTEOPENIA. Recommend follow-up as clinically warranted. Reading Location: [id number]
--- NOTE | 2024-11-09 12:26 | BI_ITS ---
EXAM: SCRN MAMM (CAD)W/MERY BILAT DATE: 11/09/2024 CLINICAL HISTORY: F, Age 74 y/o , SCREENING Personal history of breast cancer. Prior left lumpectomy and radiation treatment. BREAST CANCER RISK ASSESSMENT: Not assessed. TECHNIQUE: Bilateral screening digital breast tomosynthesis with 2D and 3D images. Computer aided detection. COMPARISON: Prior exam(s) dated August 13, 2023.. FINDINGS: TISSUE DENSITY: The breast tissue is composed of scattered area of fibroglandular density. Bilateral Breast Mammographic Findings: No significant masses, calcifications or other abnormalities are identified. The patient is status post lumpectomy in the deep central portion of the left breast with resultant postoperative scarring. This is unchanged. BI/SCRN MAMM (CAD)W/MERY BILAT IMPRESSION: OVERALL FINAL ASSESSMENT: BIRADS 2 BENIGN FINDING RECOMMENDATION: Routine annual follow-up in 1 Year A letter with findings and recommendations will be mailed to the patient. Reading Location: [id number]
== END | disposition home or self-care (01) ==
LOC: OPBD 10:40
PROVIDERS: PCP Family Medicine; Referring Provider Physician Assistant; Visit Provider Physician Assistant
DX: Z12.31 Encounter for screening mammogram for malignant neoplasm of breast (principal); Z48.812 Encounter for surgical aftercare following surgery on the circulatory system; N95.9 Unspecified menopausal and perimenopausal disorder
CPT/HCPCS: 77063; 77067; 77080; 93880

== ENCOUNTER → 2025-04-17 | Outpatient (CLI) | payer MEDICARE, SELFPAY ==
[2019-08-21 12:53] VITALS: BMI 33.0
--- OUTSIDE RECORDS SUMMARY | 2025-04-17 21:10 | XMS RPT_ITS | CCD ---
Author Organization [facility] CliniSyut Care Team Providers Care Card Filer Name Role Phone MD Sylvia, Michael Woodson Unavailable Fadia Gordon Primary Care Provider [phone] Dr. Fadia Gordon Primary Care Provider Dr. Kole Talavera Attending Provider Dr. Kole Talavera Referring Provider Dr. Fadia Gordon Primary Care Provider [phone] Kole Talavera Attending Provider Dr. Kole Talavera Referring Provider [phone] Fadia Gordon Referring Provider [phone] Ernesto Duarte Attending Provider [phone] Ernesto Duarte Referring Provider [phone] Ernesto Duarte Other Provider Dr. Michael Ward Attending Provider [phone] Fadia Gordon Primary Care Provider Dr. Ernesto Duarte Attending Provider [phone] MEEK Benedict Referring Provider Dr. Fadia Gordon Referring Provider [phone] Kole Talavera Attending Provider [phone] Fadia Gordon Primary Care Provider Dr. Fadia Gordon Referring Provider [phone] Kole Talavera Attending Provider [phone] Fadia Gordon Primary Care Provider Dr. Fadia Gordon MD Primary Care Provider Evan MCALLISTER, Dr. Fadia Woodson Other Provider Jak PA, Suzy Attending Provider Benedict PA, Suzy Referring Provider Felicia MCALLISTER, Dr. Orozco Attending Provider [phone] Ernesto Duarte Attending Unavailable Jolliff, Fadia S Primary Care Unavailable Benedict, Suzy Referring Unavailable Benedict, Suzy Attending Unavailable Benedict, Suzy Referring Unavailable Jolliff, Fadia S Primary Care Unavailable Jolliff, Fadia S Consulting Unavailable Benedict, Suzy Attending Unavailable Benedict, Suzy Referring Unavailable Jolliff, Fadia S Primary Care Unavailable Benedict, Suzy Attending Unavailable Jolliff, Fadia S Referring Unavailable Jolliff, Fadia S Primary Care Unavailable Ernesto Duarte Attending Unavailable Jolliff, Fadia S Primary Care Unavailable Benedict, Suzy Referring Unavailable Benedict, Suzy Attending Unavailable Benedict, Suzy Referring Unavailable Jolliff, Fadia S Primary Care Unavailable Medications Current Medications Medication Drug Class(es) Dates Sig (Normalized) Sig (Original) amLODIPine 10 mg oral tablet (13 sources) Dihydropyridine Calcium Channel Grabiel Start: 03-16-2012 take 1 tablet by mouth once daily Amlodipine 10 mg tablet Active 10 mg PO daily November 18, 2017 12:00am Comment on above: once daily. aspirin 81 mg delayed release oral tablet (20 sources) Nonsteroidal Anti-inflammatory Drug Start: 11-18-2017 End: 05-12-2018 Aspirin (Adult Low Dose Aspirin) 81 mg tablet,delayed release (DR/EC) Active 81 mg PO DAILY May 12, 2018 10:45am Start: 05-12-2013 take 1 tablet by holly th once daily ASPIRIN 81 MG TABS One tablet by mouth daily ASPIRIN [id number] Michael Ward MD Start: 05-12-2013 take 1 tablet by holly th every week ASPIRIN EC 81 MG TBEC One tablet by mouth daily every 3 days per week ASPIRIN [id number] Michael Ward MD Comment on above: Take 81 mg by mouth once daily. atorvastatin 80 mg oral tablet (20 sources) HMG-CoA Reductase Inhibitor Start: 3 take 1 tablet by mouth at bedtime Atorvastatin 80 mg tablet Active 80 mg PO AT BEDTIME April 07, 2023 12:00am Start: 05-12-2018 End: 04-07-2023 take 1 tablet by mouth once daily Atorvastatin 40 mg tablet Discontinued 40 mg PO DAILY May 12, 2018 1:00am April 07, 2023 12:01pm Start: 05-12-2016 End: 05-12-2018 take 1 tablet by mouth once daily Atorvastatin 20 mg tablet Discontinued 20 mg PO daily November 18, 2017 12:00am May 12, 2018 10:45am Start: 05-12-2016 take 1 tablet by holly th once daily ATORVASTATIN CALCIUM 40 MG TABS One tablet by mouth daily ATORVASTATIN CALCIUM [id number] Michael Ward MD Comment on above: Take 20 mg by mouth once daily. lisinopril 40 mg oral tablet (17 sources) Angiotensin Converting Enzyme Inhibitor Start: 2 take 1 tablet by mouth once daily Lisinopril 40 mg tablet Active 40 mg PO daily November 18, 2017 12:00am Comment on above: once daily. meclizine hydrochloride 25 mg oral tablet (6 sources) Antiemetic Start: 6 take 1 tablet by mouth every twelve hours as needed meclizine (ANTIVERT) 25 mg tab Take 25 mg by mouth twice daily as needed. 05/12/2016 Active Comment on above: Take 25 mg by mouth twice daily as needed. metFORMIN hydrochloride 500 mg oral tablet (7 sources) Biguanide Start: 8 take 1 tablet by mouth at bedtime Metformin 500 mg tablet Active 500 mg PO AT BEDTIME May 12, 2018 1:00am 24 hr metoprolol succinate 50 mg extended release oral tablet (17 sources) beta-Adrenergic Grabiel Start: 3 Metoprolol Succinate 50 mg tablet extended release 24 hr Active 100 mg PO daily February 24, 2023 3:25pm Start: 02-24-2023 take 100 mg by mouth once mak y Metoprolol Succinate Active 100 MG PO daily February 24, 2023 3:25pm Start: 03-25-2012 End: 02-24-2023 take 1 tablet by mouth once daily Metoprolol Succinate 50 mg tablet extended release 24 hr Discontinued 50 mg PO daily November 18, 2017 12:00am February 24, 2023 3:26pm Comment on above: once daily. Multivitamin (Daily Multi-Vitamin) tablet (3 sources) Start: 05-12-2018 take 1 tablet by mouth once daily Multivitamin (Daily Multi-Vitamin) tablet Active 1 TABLET PO DAILY May 12, 2018 1:00am Start: 05-12-2018 take 1 tablet by holly th once daily Multivitamin (Daily Multi-Vitamin) tablet Active 1 TABLET PO DAILY May 12, 2018 12:00am multivitamin tablet (4 sources) take 1 tablet by holly th once daily multivitamin tablet Take 1 tablet by mouth once daily. Active take 1 tablet by mouth once mak y multivitamin tablet Take 1 tablet by mouth once daily. 0 Active Comment on above: Take 1 tablet by holly th once daily. Semaglutide (4 sources) Start: 02-24-2023 Semaglutide (Ozempic) 0.25 mg or 0.5 mg (2 mg/3 mL) pen injector Active 0.25 mg SC EVERY WEEK February 24, 2023 12:00am for 4 weeks Start: 02-24-2023 Semaglutide (O zempic) 0.25 mg or 0.5 mg (2 mg/3 mL) pen injector Active 0.25 MG SC EVERY WEEK February 23, 2023 11:00pm for 4 weeks Start: 02-24-2023 Semaglutide (O zempic) 0.25 mg or 0.5 mg (2 mg/3 mL) pen injector Active 0.25 MG SC EVERY WEEK February 24, 2023 12:00am for 4 weeks tamoxifen 20 mg oral tablet (14 sources) Estrogen Agonist/Antagonist Start: 07-08-2023 End: 06-30-2024 take 1 tablet by mouth once daily tamoxifen (NOLVADEX) 20 mg tablet TAKE 1 TABLET BY MOUTH EVERY DAY 90 tablet 3 06/30/2024 Active Start: 05-07-2021 End: 06-02-2022 take 1 tablet by mouth once daily tamoxifen (NOLVADEX) 20 mg tablet Take 1 tablet (20 mg) by mouth once daily. 90 tablet 3 06/02/2022 Active Start: 12-05-2019 take 1 tablet by holly th once daily Tamoxifen 10 MG tablet Active 20 mg PO DAILY December 05, 2019 12:00am Start: 12-05-2019 take 20 mg by mouth once daily Tamoxifen Active 20 MG PO DAILY December 05, 2019 12:00am Comment on above: Take 1 tablet (20 mg ) by mouth once daily. Completed/Discontinued Medications Medication Drug Class(es) Dates Sig (Normalized) Sig (Original) acetaminophen 325 mg / HYDROcodone bitartrate 5 mg oral tablet (7 sources) Opioid Agonist Start: 08-04-2019 End: 08-06-2019 Hydrocodone-Acetami nophen 1 TABLET tablet Discontinued 1 {tbl} PO EVERY 6 HOURS NEEDED as needed for Pain 5 2 August 04, 2019 August 05, 2019 1:00am August 06, 2019 1:09am Start: 08-04-2019 End: 08-06-2019 take 1 tablet by mouth every six hours as needed Hydrocodone-Acetaminophen Discontinued 1 TABLET PO EVERY 6 HOURS NEEDED 5 2 August 04, 2019 August 06, 2019 1:09am calcium carbonate 400 mg / cholecalciferol 133 unt / magnesium oxide 167 mg oral tablet (7 sources) Vitamin D Start: 11-18-2017 End: 05-12-2018 Calcium Carb-Mag Oxide-Vit D3 (Calcium Magnesium Plus D) 400-167-133 mg-mg-unit tablet Discontinued {tbl} PO November 18, 2017 12:00am May 12, 2018 10:46am Start: 11-18-2017 End: 05-12-2018 calcium carb-magnesium oxide -vit D3 400 mg-167 mg-133 unit tablet Discontinued TABLET PO November 18, 2017 12:00am May 12, 2018 10:46am MULTIPLE VITAMINS-MINERALS (6 sources) Start: 05-13-2017 take 1 tablet by mouth once daily ONE-A-DAY WOMENS 50+ ADVANTAGE TABS One tablet by mouth daily MULTIPLE VITAMINS-MINERALS [id number] Michael Ward MD Start: 05-14-2015 take 1 tablet by holly th once daily ONE-A-DAY WOMENS 50+ ADVANTAGE TABS One tablet by mouth daily MULTIPLE VITAMINS-MINERALS [id number] Michael Ward MD Start: 05-14-2015 End: 05-12-2016 take 1 tablet by mouth once daily ONE-A-DAY WOMENS 50+ ADVANTAGE TABS One tablet by mouth daily MULTIPLE VITAMINS-MINERALS [id number] Michael Ward MD Hamilton-3 Fatty Acids (Fish Oil Concentrate) 1,000 mg capsule (7 sources) Start: 11-18-2017 End: 05-12-2018 take 1 capsule by mouth once daily Hamilton-3 Fatty Acids (Fish Oil Concentrate) 1,000 mg capsule Discontinued 1000 mg PO daily November 18, 2017 12:00am May 12, 2018 10:46am Start: 11-18-2017 End: 05-12-2018 take 1 capsule by mouth once daily Hamilton-3 Fatty Acids (Fish Oil Concentrate) 1,000 mg capsule Discontinued 1000 MG PO daily November 18, 2017 12:00am May 12, 2018 10:46am Start: 11-18-2017 End: 05-12-2018 take 1 capsule by mouth once daily Hamilton-3 Fatty Acids (Fish Oil Concentrate) 1,000 mg capsule Discontinued 1000 MG PO daily November 17, 2017 11:00pm May 12, 2018 9:46am oxyCODONE hydrochloride 5 mg oral tablet (3 sources) Opioid Agonist Start: 04-07-2023 End: 04-20-2023 take 1 tablet by mouth every eight hours as needed for pain Oxycodone 5 mg Tablet Discontinued 5 mg PO EVERY 8 HOURS NEEDED as needed for Pain Score 4-10 9 3 April 07, 2023 April 20, 2023 1:17pm SITagliptin 25 mg oral tablet (5 sources) Dipeptidyl Peptidase 4 Inhibitor Start: 02-03-2023 End: 04-20-2023 take 4 tablets by mouth once daily Sitagliptin Phosphate (Januvia) 25 mg tablet Discontinued 100 mg PO DAILY February 03, 2023 12:00am April 20, 2023 1:17pm Start: 02-03-2023 take 1 tablet by holly th once daily Sitagliptin Phosphate (Januvia) 25 mg tablet Active 25 MG PO DAILY February 03, 2023 12:00am ticagrelor 90 mg oral tablet (4 sources) Start: 03-03-2023 End: 03-29-2024 take 1 tablet by mouth five times daily Ticagrelor (Brilinta) 90 mg tablet Discontinued 90 mg PO TWICE A DAY 60 March 03, 2023 12:00am March 29, 2024 11:40am Start medication as directed 5 days prior to scheduled procedure. Problems Active Problems Problem Classification Problem Date Documented Date Episodic/Chronic Cancer of breast (16 sources) Intraductal carcinoma in situ of left breast; Translations: [Intraductal carcinoma in situ of left breast] Onset: 10-26-2019 10-26-2019 Chronic Cardiac dysrhythmias (2 sources) Ventricular premature beats; Translations: [Ventricular premature depolarization] Onset: 03-16-2012 03-16-2012 Chronic Disorders of lipid metabolism (9 sources) Hyperlipidemia; Translations: [Hyperlipidemia, unspecified] Onset: 03-16-2012 03-16-2012 Chronic Essential hypertension (9 sources) Hypertensive disorder; Translations: [Essential hypertension] Onset: 03-16-2012 03-16-2012 Chronic Comment on above: CONTROLLED ON MED Occlusion or stenosis of precerebral arteries (20 sources) Carotid artery stenosis; Translations: [Occlusion and stenosis of unspecified carotid artery] Onset: 07-22-2012 07-22-2012 Chronic Comment on above: s/p L TCAR R ICA chronic occlus ions/p L TCAR 04/06/2023 Other aftercare (1 source) Surgical follow-up; Translations: [Encounter for surgical aftercare following surgery on the circulatory system] 11-17-2023 Episodic Other aftercare (1 source) Encounter for surgical aftercare following surgery on the circulatory system; Translations: [Encounter for surgical aftercare following surgery on the circulatory system] Onset: 10-26-2024 Episodic Other circulatory disease (2 sources) Disorder of carotid artery; Translations: [Occlusion and stenosis of unspecified carotid artery] Onset: 05-12-2013 05-12-2013 Chronic Unclassified (4 sources) Body mass index (BMI) 30.0-30.9, adult; Translations: [Body mass index (BMI) 33.0-33.9, adult] Onset: 05-12-2013 05-12-2013 Chronic Unclassified (7 sources) Electrocardiogram abnormal; Translations: [Patient encounter status] Onset: 03-16-2012 03-16-2012 Episodic Past or Other Problems Problem Classification Problem Date Documented Date Episodic/Chronic Cardiac dysrhythmias (2 sources) Palpitations; Translations: [Palpitations] Onset: 03-16-2012 03-16-2012 Episodic Conditions associated with dizziness or vertigo (2 sources) Dizziness; Translations: [Dizziness and giddiness] Onset: 03-16-2012 03-16-2012 Episodic Residual codes; unclassified (3 sources) Other specified postprocedural states; Translations: [History of lumpectomy of left breast] Onset: 08-04-2019 04-15-2023 Episodic Unclassified (6 sources) FH: Hypertension; Translations: [Family history of ischemic heart disease and other diseases of the circulatory system] 05-15-2014 Episodic Results Test Name Value Interpretation Reference Range Facility Bone density reportOrdered B y: Travis Persaud on 11-09-2024 Study report Skeletal system DXA [facility] Imaging Services [address], [place] [address] Dexa Bone Density Study MR#: [id number] Acct: [id number] Name: DELORES KRISHNA Rep #: [id number] : 1950 F 74 From: Jerrod Persaud MD PCP: Dr. Fadia Gordon MD Status: [facility] CLI Study:Dexa Bone Density Study Date of Exam: 11/09/24 Exam# [id number] Ordering Dr: Fadia Gordon MD PROCEDURE: DEXA BONE DENSITY STUDY 11/09/2024 REASON FOR EXAM: F, age 74 y/o . Postmenopausal. TECHNIQUE: DXA scan of sites with data reported below. REFERENCE LINKS: [facility] Adult Positions COMPARISON: Prior study dated August 29, 2019. FINDINGS: BMD and T-SCORES Lumbar spine: 1.024 g/cm2, T-score -0.1 Levels: L1 through L4 Change from prior: Loss of 7.8%. Left femoral neck: 0.745 g/cm2, T-score -0.9 Femoral neck comparison data not recommended for monitoring change. Left total hip: 0.884 g/cm2, T-score -0.5 Change from prior: Loss of 10%. Right femoral neck: 0.719 g/cm2, T-score -1.2 Femoral neck comparison data not recommended for monitoring change. Right total hip: 0.899 g/cm2, T-score -0.3 Change from prior: Loss of 7.1%. The World Health Organization has defined the following categories based on bonedensity: Normal bone density: T-score equal to or greater than -1.0 Osteopenia: T-score between -1.0 and -2.5 Osteoporosis: T-score equal to or less than -2.5 The patient does meet the pharmacological treatment recommendations for prevention of osteoporosis. BD/Dexa Bone Density Study IMPRESSION: OSTEOPENIA. Recommend follow-up as clinically warranted. Reading Location: [id number] CC: Dr. Fadia Gordon MD ~ Sample Room Supervisor: Signed [facility] Breast imaging reportOrdered By: Travis Persaud on 11-09-2024 Study report [facility] Imaging Services [address] [place] [address] SCRN MAMM (CAD)W/MERY BILAT MR#: [id number] Acct: [id number] Name: DELORES KRISHNA Rep #: [id number] : 1950 F 74 From: Jerrod Persaud MD PCP: Dr. Fadia Gordon MD Status: REG CLI Study:SCRN MAMM (CAD)W/MERY BILAT Date of Exa m: 11/09/24 Exam# [id number] Ordering Dr: Fadia Gordon MD EXAM: SCRN MAMM (CAD)W/MERY BILAT DATE: 11/09/2024 CLINICAL HISTORY: F, Age 74 y/o , SCREENING Personal history of breast cancer. Prior left lumpectomy and radiation treatment. BREAST CANCER RISK ASSESSMENT: Not assessed. TECHNIQUE: Bilateral screening digital breast tomosynthesis with 2D and 3D images. Computeraided detection. COMPARISON: Prior exam(s) dated August 13, 2023.. FINDINGS: TISSUE DENSITY: The breast tissue is composed of scattered area of fibroglandular density. Bilateral Breast Mammographic Findings: No significant masses, calcifications or other abnormalities are identified. The patient is status post lumpectomy in the deep central portion of the left breast with resultant postoperative scarring. This is unchanged. BI/SCRN MAMM (CAD)W/MERY BILAT IMPRESSION: OVERALL FINAL ASSESSMENT: BIRADS 2 BENIGN FINDING RECOMMENDATION: Routine annual follow-up in 1 Year A letter with findings and recommendations will be mailed to the patient. Reading Location: [id number] CC: Dr. Fadia Gordon MD ~ Sample Room Supervisor: Signed [facility] Carotid Duplex Ultrasoundon 11-09-2024 Carotid Duplex Ultrasound [facility] Cardiovascular Services [address] [place] [address] Carotid Duplex Ultrasound 11/09/24 1105 MR#: [id number] Acct: [id number] Name: DELORES KRISHNA Rep #: [id number] : 1950 74 From: Ernesto Duarte MD Attending Dr: MEEK Dugan Status: REG CLI Ordering Dr: Suzy Benedict Date: 11/09/24 Location: OPBD Sex: F C Admitted: Reason For Study Reason For Study: HX Rt ICA Occlusion / Lt ICA TCAR Rt. Velocities/BP Lt. Velocities/BP Prox CCA 61.4/6.5 cm/sec. Prox CCA 98.4/29.0 cm/sec. Mid CCA 38.4/12.0 cm/sec. Mid CCA 67.4/21.7 cm/sec. Dist CCA 40.6/10.9 cm/sec. Dist CCA 74.7/30.9 cm/sec. Known Rt ICA Occlusion. Lt Prox ICA Stent Noted Prox ECA 85.3/16.0 cm/sec. Prox Stent - 87.5/23.6 cm/s Rt. Vert. 17.1/7.5 cm/sec. Mid Stent - 118.3/41.5 cm/s Dist Stent - 157.8/54.7 cm/s. Mid ICA 147.5/56.8 cm/sec. Dist ICA 129.3/49.0 cm/sec. Lt. ICA/CCA = 2.3. Prox ECA 65.8/10.9 cm/sec. Lt. Vert. 100.8/38.6 cm/sec. Right Extracranial There is homogeneous, smooth atherosclerotic plaque noted in the right common carotid artery. Known ICA Occlusion / HX CEA. There is heterogeneous, irregular atherosclerotic plaque noted in the right external carotid artery. Antegrade flow is noted in the right vertebral artery. Left Extracranial There is intimal thickening but no significant atherosclerotic plaque noted in the left common carotid artery. There is heterogeneous, irregular atherosclerotic plaque noted in the left internal carotid artery. Distal CCA - Prox ICA Stent Noted. The left external carotid artery is not well visualized. Antegrade flow is noted in the left vertebral artery. Procedure Carotid Duplex [id number]. This is a Carotid Duplex examination using B-mode, color flow and specral Doppler. The exam was diagnostic. Exam performed in department. VL/Carotid Duplex Ultrasound Interpretation Summary Occlusion of the right extracranial internal carotid. Mild (<70%) stenosis left extracranial internal carotid. Patent and antegrade vertebrals bilaterally. __ Ordering Physician: Suzy Benedict Referring Physician: Fadia Gordon Performed By: Bobby Ingram, T 11/09/241715 Date Ernesto Duarte MD CC: MEEK Dugan; Dr. Fadia Gordon MD Date Dictated: 11/09/24 1105 Date Transcribed: 11/09/241715 Sample Room Supervisor: Signed Normal [facility] Dexa Bone Density Studyon Dexa Bone Density Study [facility] Imaging Services [facility] [place] [address] Dexa Bone Density Study MR#: [id number] Acct: [id number] Name: DELORES KRISHNA Rep #: [id number] : 1950 F 74 From: Travis quach MD PCP: Dr. Fadia Gordon MD Status: REG CLI Study: Dexa Bone Density Study Date of Exam: 11/09/24 Exam# [id number] Ordering Dr: Fadia Gordon MD PROCEDURE: DEXA BONE DENSITY STUDY 11/09/2024 REASON FOR EXAM: F, age 74 y/o . Postmenopausal. TECHNIQUE: DXA scan of sites with data reported below. [facility] Positions COMPARISON: Prior study dated August 29, 2019. FINDINGS: BMD and T-SCORES Lumbar spine: 1.024 g/cm2, T-score -0.1 Levels: L1 through L4 Change from prior: Loss of 7.8%. Left femoral neck: 0.745 g/cm2, T-score -0.9 Femoral neck comparison data not recommended for monitoring change. Left total hip: 0.884 g/cm2, T-score -0.5 Change from prior: Loss of 10%. Right femoral neck: 0.719 g/cm2, T-score -1.2 Femoral neck comparison data not recommended for monitoring change. Right total hip: 0.899 g/cm2, T-score -0.3 Change from prior: Loss of 7.1%. The World Health Organization has defined the following categories based on bone density: Normal bone density: T-score equal to or greater than -1.0 Osteopenia: T-score between -1.0 and -2.5 Osteoporosis: T-score equal to or less than -2.5 The patient does meet the pharmacological treatment recommendations for prevention of osteoporosis. BD/Dexa Bone Density Study IMPRESSION: OSTEOPENIA. Recommend follow-up as clinically warranted. Reading Location: [facility] CC: Dr. Fadia Gordon MD Sample Room Supervisor: Signed Normal [facility] Duplex ultrasound of carotid artery reportOrdered By: Ernesto Duarte on 11-09-2024 Study report [facility] Cardiovascular Services [address] [place] [address] Carotid Duplex Ultrasound 11/09/24 1105 MR#: [id number] Acct: [id number] Name: DELORES KRISHNA Rep #:[id number] : 1950 74 From: Ernesto Garcia Attending Dr: MEEK Dugan Stat us: REG CLI Ordering Dr: Suzy Benedict Date: Location: OPBD Sex: F C Admitted: Reason For Study Reason For Study: HX Rt ICA Occlusion / Lt ICA TCAR Rt. Velocities/BP Lt. Velocities/BP Prox CCA 61.4/6.5 cm/sec. Prox CCA 98.4/29.0 cm/sec. Mid CCA 38.4/12.0 cm/sec. Mid CCA 67.4/21.7 cm/sec. Dist CCA 40.6/10.9 cm/sec. Dist CCA 74.7/30.9 cm/sec. Known Rt ICA Occlusion. Lt Prox ICA Stent Noted Prox ECA 85.3/16.0 cm/sec. Prox Stent - 87.5/23.6 cm/s Rt. Vert. 17.1/7.5 cm/sec. Mid Stent - 118.3/41.5 cm/s Dist Stent - 157.8/54.7 cm/s. Mid ICA 147.5/56.8 cm/sec. Dist ICA 129.3/49.0 cm/sec. Lt. ICA/CCA = 2.3. Prox ECA 65.8/10.9 cm/sec. Lt. Vert. 100.8/38.6 cm/sec. Right Extracranial There is homogeneous, smooth atherosclerotic plaque noted in the right common carotid artery. Known ICA Occlusion / HX CEA. There is heterogeneous, irregular atherosclerotic plaque noted in the rightexternal carotid artery. Antegrade flow is noted in the right vertebral artery. Left Extracranial There is intimal thickening but no significant atherosclerotic plaque noted in the left common carotid artery. There is heterogeneous, irregular atherosclerotic plaque noted in the left internal carotid artery. Distal CCA - Prox ICA Stent Noted. The left external carotid artery is not well visualized. Antegrade flow is noted in the left vertebral artery. Procedure Carotid Duplex [id number]. This is a Carotid Duplex examination using B-mode, color flow and specral Doppler. The exam was diagnostic. Exam performed in department. VL/Carotid Duplex Ultrasound Interpretation Summary Occlusion of the right extracranial internal carotid. Mild (<70%) stenosis left extracranial internal carotid. Patent and antegrade vertebrals bilaterally. __ Ordering Physician: Suzy Benedict Referring Physician: Fadia Gordon Performed By: Bobby Ingram RVT 11/09/241715 Date _ Ernesto Duarte MD CC: MEEK Dugan; Dr. Fadia Gordon MD ~ Date Dictated: 11/09/245 Date Transcribed: 11/09/241715 Sample Room Supervisor: Signed [facility] Work Phone: SCRN MAMM (CAD)W/MERY BILATo n 11-09-2024 SCRN MAMM (CAD)W/MERY BILAT [facility] Imaging Services [address] [place] [id number] SCRN MAMM (CAD)W/MREY BILAT MR#: [id number] Acct: [id number] Name: DELORES KRISHNA Rep #: [id number] : 1950 F 74 From: Travis quach MD PCP: Dr. Fadia Gordon MD Status: REG [facility] Study: SCRN MAMM (CAD)W/MERY BILAT Date of Exam: 10/26 11/19 Exam# [id number] Ordering Dr: Fadia Gordon MD EXAM: SCRN MAMM (CAD)W/MERY BILAT DATE: 11/09/2024 CLINICAL HISTORY: F, Age 74 y/o , SCREENING Personal history of breast cancer. Prior left lumpectomy and radiation treatment. BREAST CANCER RISK ASSESSMENT: Not assessed. TECHNIQUE: Bilateral screening digital breast tomosynthesis with 2D and 3D images. Computer aided detection. COMPARISON: Prior exam(s) dated August 13, 2023.. FINDINGS: TISSUE DENSITY: The breast tissue is composed of scattered area of fibroglandular density. Bilateral Breast Mammographic Findings: No significant masses, calcifications or other abnormalities are identified. The patient is status post lumpectomy in the deep central portion of the left breast with resultant postoperative scarring. This is unchanged. BI/SCRN MAMM (CAD)W/MERY BILAT IMPRESSION: OVERALL FINAL ASSESSMENT: BIRADS 2 BENIGN FINDING RECOMMENDATION: Routine annual follow-up in 1 Year A letter with findings and recommendations will be mailed to the patient. Reading Location: [id number] CC: Dr. Fadia Gordon MD Sample Room Supervisor: Signed [facility] 09-14-2024 CNPN Telephone ([employer]) ---- DELORES KRISHNA ([id number]) 1950 F Date Time Provider Department 09/14/24 MICHELET FARMER During your visit today, we recorded the following information about you: Alem Brown LPN 09/14/2024 10:37 AM Signed Message left with pts. for pt. To call and schedule appt.sometime in September. TRISH Kline Naomi 09/19/2024 11:02 AM Signed Spoke w pt and he said he would give message to call back and schedule. Alem Dupont LPN 09/19/2024 1:07 PM Signed Spoke with pt. She states she did have her mamm last year 08/13/2023, retrieved report from [facility] ,scanned into our system. Pt. States she has appt. With her PCP, Fadia Gordon MD on 10/07/2024 for annual physical, doesn't believe she really needs to see Michelet here if Dr. Gordon does a breast exam. Will discontinue Nolvadex 20 this September when she runs out of her current rx. Will go thru her PCP for yearly mamms and visits from this point on. Prefers not to schedule appt. With Michelet if she doesn't have to. TRISH Kline Darby, APRN.SURI 09/19/2024 1:23 PM Signed Noted. MARY Beltre Pamela S, LPN 09/19/2024 2:32 PM Signed Pt. Says to thank Michelet for all her care, if down the road any issues with her breasts crop up, she will be sure to call office and schedule appt. TRISH Kline Darby, APRN.CNP 09/19/2024 3:02 PM Signed Noted. Michelet Farmer APRN.CNP Allergies As of Date: 09/14/2024 (No Known Allergies) Date Reviewed: 07/08/2023 Reviewed by: Michelet Farmer APRN.SURI - Fully Assessed Reason for Visit: Appointment [186] Cmt: Prescriptions as of 09/19/2024 - tamoxifen (NOLVADEX) 20 mg tablet TAKE 1 TABLET BY MOUTH EVERY DAY - atorvastatin (LIPITOR) 80 mg tablet Take 80 mg by mouth once daily. - multivitamin tablet Take 1 tablet by mouth once daily. - meclizine (ANTIVERT) 25 mg tab Take 25 mg by mouth twice daily as needed. - Aspirin 81 mg Tab Take 81 mg by mouth once daily. - METOPROLOL SUCCINATE XL, LONG ACTING, 50 mg 24 hr tablet Take 50 mg by mouth once daily. - LISINOPRIL 40 mg tablet Take 40 mg by mouth once daily. - AMLODIPINE 10 mg tablet Take 10 mg by mouth once daily. Problem List As Of Date 09/14/2024 Noted Resolved Carotid stenosis [I65.29] 07/22/2012 Bilateral carotid artery stenosis [I65.23] 07/18/2015 Ductal carcinoma in situ (DCIS) of left breast *10/26/2019 Encounter Status:Closed by ALEM BROWN on 09/19/24 Normal [facility] Carotid Duplex Ultrasoundon 05-03-2024 Carotid Duplex Ultrasound [facility] [address] [place] [address] Carotid Duplex Ultrasound 05/03/24 0951 MR#: [id number] Acct: [id number] Name: DELORES KRISHNA Rep #: [id number] : 1950 74 From: Ernesto Duarte MD Attending Dr: MEEK Dugan Status: REG CLI Ordering Dr: Suzy Benedict Date: 05/03/24 Location: [facility] Sex: F C Admitted: Reason For Study: Known Rt ICA Occlusion / Lt TCAR Rt. Velocities/BP Lt. Velocities/BP Prox CCA 69.1/14.2 cm/sec. Prox CCA 68.6/30.6 cm/sec. Mid CCA 51.5/16.4 cm/sec. Mid CCA 82.1/35.5 cm/sec. Dist CCA 64.7/14.2 cm/sec. Dist CCA 72.3/33.0 cm/sec. Rt ICA Occlusion. Dist CCA Pre Stent - 57.6/29.3 cm/s. Prox ECA 76.1/20.4 cm/sec. Lt Prox ICA Stent Noted Rt. Vert. 18.4/9.2 cm/sec. Prox Stent - 141.9/51.4 cm/s Monophasic flow noted. Mid Stent - 151.6/61.1 cm/s Dist Stent - 183.9/80.5 cm/s Post Stent - 148.4/51.4 cm/s. Mid ICA 164.5/67.6 cm/sec. Dist ICA 89.5/35.5 cm/sec. Lt. ICA/CCA = 2.2. Prox ECA 70.8/23.5 cm/sec. Lt. Vert. 90.7/33.0 cm/sec. Right Extracranial There is homogeneous, smooth atherosclerotic plaque noted in the right common carotid artery. Known ICA Occlusion / HX CEA. There is heterogeneous, irregular atherosclerotic plaque noted in the right external carotid artery. Antegrade flow is noted in the right vertebral artery. Left Extracranial There is intimal thickening but no significant atherosclerotic plaque noted in the left common carotid artery. There is heterogeneous, irregular atherosclerotic plaque noted in the left internal carotid artery. Distal CCA - Prox ICA Stent Noted. The left external carotid artery is not well visualized. Antegrade flow is noted in the left vertebral artery. Procedure Carotid Duplex 26121. This is a Carotid Duplex examination using B-mode, color flow and specral Doppler. The exam was diagnostic. 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 Less than 70% stenosis left extracranial internal carotid stent. Patent and antegrade vertebrals bilaterally. __ Ordering Physician: Suzy Benedict Referring Physician: Fadia Chapa Performed By: Bobby Ingram, [facility] 05/08/241999 Date Ernesto Duarte MD CC: MEEK Dugan; Dr. Fadia Gordon MD Date Dictated: 05/03/24 0951 Date Transcribed: 05/08/241999 Sample Room Supervisor: Signed Normal [facility] MR/BMS.BVSon 03-29-2024 MR/BMS.BVS [facility] [address] [place] [address] OFFICE VISIT Date of Service: 03/29/24 MR#: [id number] Acct: [id number] Name: DELORES KRISHNA Rep #: [id number] : 1950 Provider: MEEK Dugan Age/Sex: 74/F Location: BMS.BVS Status: Signed Intake Vital Signs 04/06/23 13:04 03/29/24 11:37 Height 5 ft 1.81 in Weight: 153 lb BP 117/73 Blood Pressure Location Rt brachial Position Sitting Respiration 14 Pulse 75 Pulse Source Monitor Temp 98.2 F Temp Source Temporal Pulse Oximetry (%) 98 Oxygen Delivery Method room air Intake Visit Reasons: 1 Y F/U Is patient in pain?: No Allergies No Known Allergies Allergy (Verified 03/29/24 11:39) Medications ???Medication ???Instructions ???Recorded ???Confirmed ???Type amlodipine 10 mg tablet 10 mg PO QDAY 11/18/17 03/29/24 History lisinopril 40 mg tablet 40 mg PO QDAY 11/18/17 03/29/24 History aspirin 81 mg tablet,delayed 81 mg PO DAILY 05/12/18 03/29/24 History release (Adult Low Dose Aspirin) metformin 500 mg tablet 500 mg PO QHS 05/12/18 03/29/24 History tamoxifen 10 mg tablet 20 mg PO DAILY 12/05/19 03/29/24 History metoprolol succinate 50 mg 100 mg PO QDAY 02/24/23 03/29/24 History tablet,extended release 24 hr semaglutide 0.25 mg or 0.5 mg (2 0.25 mg subcut QWEEK 02/24/23 03/29/24 History mg/3 mL) subcutaneous pen injector (S&N Airoflo) atorvastatin 80 mg tablet 80 mg PO QHS #30 tabs 04/07/23 03/29/24 Rx Is last menstrual period known: No Post menopausal: Yes Patient : No Have you fallen in the past year?: Yes PFSH Medical History (Updated 03/30/24 @ 22:15 by MEEK Dugan) Left carotid artery stenosis Recurrent stenosis of left carotid artery Post-menopausal Cancer Diabetes High cholesterol Non-smoker Shortness of breath on exertion History of stress test Cardiology follow-up encounter Screening mammogram for breast cancer Skin lesion Ductal carcinoma in situ (DCIS) of left breast Breast cancer (06/2019) Abnormal mammogram of left breast Type 2 diabetes mellitus Obesity HLD (hyperlipidemia) Essential (primary) hypertension Bilateral carotid artery stenosis Surgical History Hx of bilateral cataract extraction History of lumpectomy of left breast (08/04/19) History of right-sided carotid endarterectomy (2013) H/O tubal ligation Family History Father CAD (coronary artery disease) COPD (chronic obstructive pulmonary disease) Mother CVA (cerebral vascular accident) Hypertension Social History Smoking Status: Never smoker HPI HPI HPI: DELORES KRISHNA, is a 74 F who presents to the office today for follow-up 1 year s/p L TCAR. She also has known chronic R ICA occlusion. Her most recent duplex on 11/15/23 was satisfactory showing less than 70% L ICA stenosis with max PSV mid ICA 154.3/57.7. She reports she has been doing great over the last year. She denies any episodes of unilateral weakness, sensory deficits, facial drooping, vision loss, dysarthria, or other neurologic symptoms concerning for stroke/TIA. Since her last OV, she did start ozempic for her diabetes and has significantly improved control and has also lost some weight. She reports no other significant changes to her medications or medical history. She continues to take ASA 81mg daily and atorvastatin 80mg daily and tolerates both well. ROS General General: Yes weight change and appetite; No fatigue, colon cancer, breast cancer or weakness HEENT HEENT: No difficulty swallowing, eye injury, eye surgery, swollen glands or hoarseness Endo Endocrine: Yes diabetes mellitus; No thyroid disease, thyroid cancer, Hair loss, heat intolerance or cold intolerance Skin Skin: No rash or changing moles Musc Musculoskeletal: No back problems, arthritis, rheumatoid arthritis, gout or joint pain Cardio Cardiovascular: Yes high blood pressure; No murmur, pacemaker, heart disease, atrial fibrillation, heart attack, heart stent, palpitations, shortness of breat with exertion or chest pain Psych Psychiatric: No depression, anxiety or hearing voices Resp Respiratory: No shortness of breath, No sleep apnea, No cough, No COPD, No asthma, No emphysema and No wheezing Gastro Gastrointestinal: No abdominal pain, No nausea or vomiting, No diarrhea, No constipation, No blood in stool, No acid reflux, No hemorrhoids, No ulcers, No gallbladder problem and No black,tarry stools [place] Hematologic: No blood thinners, No blood disorders, No bleeding, No anemia and No blood clots Additional Details: asa Neuro Neurologic: No sys (more content not included)... Normal [facility] Basophil percentageOrdered B y: Fadia Gordon on 10-19-2023 Chloride [Moles/Vol] 105 mmol/L 98-107 [facility] Cholesterol [Mass/Vol] 133 mg/dL <200 [facility] Comment on above: <200 mg/dL Desirable 200-240 mg/dL Borderline >240 mg/dL High Risk Glucose [Mass/Vol] 123 mg/dL 74-106 [facility] Comment on above: Fasting Glucose resu lt from 100 to 125 mg/dL suggests IMPAIRED HOMEOSTASIS per A.D.A. criteria. Potassium [Moles/Vol] 4.1 mmol/L 3.5-5.1 [facility] Sodium [Moles/Vol] 139 mmol/L 136-145 [facility] Triglyceride [Mass/Vol] 160 mg/dL <199 [facility] Comment on above: The drugs N-Acetylcy steine and Metamizole may falsely depress this assay.Serum Triglycerides Reference Interval Normal <150 mg/dL Borderline high 150 - 199 mg/dL High 200 - 499 mg/dL Very High > or = 500 mg/dL Laboratory - Chemistry and C hemistry - challengeOrdered By: Fadia Gordon on 10-19-2023 ALT [Catalytic activity/Vol] 19 U/L 13-56 [facility] Cholesterol in HDL [Mass/Vol] 52 mg/dL >40 [facility] Comment on above: The drugs N-Acetylcy steine and Metamizole may falsely depress this assay. Reference Range HDL <40 mg/dL Low HDL Cholesterol HDL >or= 60 mg/dL High HDL Cholesterol Cholesterol in LDL [Mass/Vol] 49 mg/dL 0-130 [facility] CO2 [Moles/Vol] 28.0 mmol/L 21.0-32.0 [facility] Urea nitrogen/Creatinine [Mass ratio] 15.3 mg/mg 10-20 [facility] No Panel InformationOrdered By: Fadia Gordon on 10-19-2023 Estimated GFR (MDRD) Amer 62 mL/min >60 [facility] Comment on above: GFR Calc Estimated GFR (MDRD) Non-Af Amer 51 mL/min >60 [facility] Comment on above: Non- GFR Calc VLDL Cholesterol 32 mg/dL 5-40 [facility] Serum or plasma calcium job urement (mass/volume)Ordered By: Fadia Gordon on 10-19-2023 Calcium [Mass/Vol] 9.4 mg/dL 8.5-10.1 [facility] Serum or plasma creatinine m easurement (mass/volume)Ordered By: Fadia Gordon on 10-19-2023 Creatinine [Mass/Vol] 1.11 mg/dL 0.55-1.02 [facility] Comment on above: The validity of the calculated GFR & GFRAA in patients over 70 years has not been determined. Clinical correlation is essential. Serum or plasma urea nitroge n measurement (mass/volume)Ordered By: Fadia Gordon on 10-19-2023 Urea nitrogen [Mass/Vol] 17 mg/dL 7-18 [facility] Thin prep Papanicolaou smear with manual screeningOrdered By: Fadia Gordon on 10-19-2023 Protein (U) [Mass/Vol] 21.5 mg/dL 0.0-11.8 [facility] Thin prep Papanicolaou smear with manual screening 22 U/L 15-37 [facility] Thin prep Papanicolaou smear with manual screening 6 5-15 [facility] Urine creatinine measurement (mass/volume)Ordered By: Fadia Gordon on 10-19-2023 Creatinine (U) [Mass/Vol] 138.00 mg/dL NO RANGE EST. [facility] Urine protein/creatinine mas s ratioOrdered By: Fadia Gordon on 10-19-2023 Protein/Creatinine (U) [Mass ratio] 156 mg/g CRE 0-200 [facility] Basophil percentageOrdered B y: Kole Talavera on 02-19-2023 Creatinine [Mass/Vol] 1.0 mg/dL 0.55-1.02 [facility] Laboratory - Chemistry and C hemistry - challengeOrdered By: Kole Talavera on 02-19-2023 GFR/1.73 sq M.predicted among non-blacks MDRD (S/P/Bld) [Vol rate/Area] 59.0000 mL/min/{1.73_m2} >60 [facility] Basophil percentageOrdered B y: Dr. Gordon on 08-04-2022 Cholesterol [Mass/Vol] 125 mg/dL <200 [facility] Comment on above: <200 mg/dL Desirable 200-240 mg/dL Borderline >240 mg/dL High Risk Triglyceride [Mass/Vol] 208 mg/dL <199 [facility] Comment on above: The drugs N-Acetylcy steine and Metamizole may falsely depress this assay.Serum Triglycerides Reference Interval Normal <150 mg/dL Borderline high 150 - 199 mg/dL High 200 - 499 mg/dL Very High > or = 500 mg/dL Serum or plasma cholesterol in HDL measurement (mass/volume)Ordered By: Dr. Gordon on 08-04-2022 Cholesterol in HDL [Mass/Vol] 47 mg/dL >40 [facility] Comment on above: The drugs N-Acetylcy steine and Metamizole may falsely depress this assay. Reference Range HDL <40 mg/dL Low HDL Cholesterol HDL >or= 60 mg/dL High HDL Cholesterol Serum or plasma cholesterol in VLDL measurement (mass/volume)Ordered By: Dr. Gordon on 08-04-2022 Cholesterol in VLDL [Mass/Vol] 42 mg/dL 5-40 [facility] Serum or plasma low density lipoprotein (LDL) cholesterol measurement (mass/volume)Ordered By: Dr. Gordon on 08-04-2022 Cholesterol in LDL [Mass/Vol] 36 mg/dL 0-130 [facility] Office Visiton 05-13-2017 Documentation of current medications (procedure) Done Invalid Interpretation Code [employer] Work Phone: [phone] Fall risk assessment No Invalid Interpretation Code [employer] Work Phone: [phone] Clinical Lists Update: Pre05-06-2016 Left ventricular Ejection fraction 57 % Invalid Interpretation Code [employer] Work Phone: [phone] Clinical Lists Update: Pre12-31-2015 Alanine aminotransferase (ALT) 41 U/L Invalid Interpretation Code [employer] Work Phone: [phone] Albumin 3.7 g/dL Invalid Interpretation Code [employer] Work Phone: [phone] Alkaline phosphatase (ALP) 115 U/L Invalid Interpretation Code [employer] Work Phone: [phone] Anion gap 8 mmol/L Invalid Interpretation Code [employer] Work Phone: [phone] Aspartate aminotransferase (AST) 31 U/L Invalid Interpretation Code [employer] Work Phone: [phone] Bilirubin (total) 0.80 mg/dL Invalid Interpretation Code [employer] Work Phone: [phone] BUN/Creatinine Ratio 19.9 mg/mg Invalid Interpretation Code [employer] Work Phone: [phone] Calcium 9.0 mg/dL Invalid Interpretation Code [employer] Work Phone: [phone] Chloride 102 mmol/L Invalid Interpretation Code [employer] Work Phone: [phone] Cholesterol 154 mg/dL Invalid Interpretation Code [employer] Work Phone: [phone] CO2 26.0 mmol/L Invalid Interpretation Code [employer] Work Phone: [phone] Creatinine 0.80 mg/dL Invalid Interpretation Code [employer] Work Phone: [phone] Globulin 4.0 g/dL High [employer] Work Phone: [phone] Glucose mass conc 136 mg/dL High [employer] Work Phone: [phone] HDL Cholesterol 46 mg/dL Invalid Interpretation Code [employer] Work Phone: [phone] LDL Cholesterol 85 mg/dL Invalid Interpretation Code [employer] Work Phone: [phone] Potassium molar conc 4.3 mmol/L Invalid Interpretation Code [employer] Work Phone: [phone] Protein 7.7 g/dL Invalid Interpretation Code [employer] Work Phone: [phone] Sodium 136 mmol/L Invalid Interpretation Code [employer] Work Phone: [phone] Triglyceride 114 mg/dL Invalid Interpretation Code [employer] Work Phone: [phone] Urea nitrogen 16 mg/dL Invalid Interpretation Code [employer] Work Phone: [phone] very low density lipoproteins 23 mg/dL Invalid Interpretation Code [employer] Work Phone: [phone] Lab Report: LIVERon 05-15-20 14 ALK 87 U/L Normal 50-136 [employer] Work Phone: [phone] Bilirubin (direct) 0.08 mg/dL Normal 0.00-0.30 [facility] Work Phone: [phone] Office Visiton 05-15-2014 Dietary management education, guidance, and counseling (procedure) yes Invalid Interpretation Code [facility] Work Phone: [phone] Tobacco use CPHS Never smoker Invalid Interpretation Code [facility] Work Phone: [phone] Clinical Lists Update: Prelo scaleman 08-25-2012 Erythrocytes (RBC) 3.32 10*6/uL Low [facility] Work Phone: [phone] Hematocrit (HCT) 29.8 % Low [facility] Work Phone: [phone] Hemoglobin mass conc (Bld) 9.8 g/dL Low [facility] Work Phone: [phone] MCH 29.5 pg Invalid Interpretation Code [facility] Work Phone: [phone] MCV 89.8 fL Invalid Interpretation Code [facility] Work Phone: [phone] Platelets 246 10*3/mm3 Invalid Interpretation Code [facility] Work Phone: [phone] WBC (Leukocytes) 9.1 10*3/uL Invalid Interpretation Code [facility] Work Phone: [phone] Vital Signs Date Time Vital Sign Value Performing Clinician Facility 08-17-2023 13:10-0500 Diastolic blood pressure 108 mm[Hg] Dr. Fadia Gordon Work Phone: [facility] 08-17-2023 13:10-0500 Respiratory rate 16 /min Dr. Fadia Gordon Work Phone: [facility] 08-17-2023 13:10-0500 Systolic blood pressure 166 mm[Hg] Dr. Fadia Gordon Work Phone: [facility] 02-24-2023 15:21-0400 Body temperature 98.2 [degF] Dr. Fadia Gordon Work Phone: [facility] 02-24-2023 15:21-0400 Body weight 80.[address] Fadia Gordon Work Phone: [facility] 02-24-2023 15:21-0400 Diastolic blood pressure 69 mm[Hg] Dr. Fadia Gordon Work Phone: [facility] 02-24-2023 15:21-0400 Heart rate 70 /min Dr. Fadia Gordon Work Phone: [facility] 02-24-2023 15:21-0400 Respiratory rate 16 /min Dr. Fadia Gordon Work Phone: [facility] 02-24-2023 15:21-0400 SaO2% (BldA) [Mass fraction] 96 % Dr. Fdaia Gordon Work Phone: [facility] 02-24-2023 15:21-0400 Systolic blood pressure 138 mm[Hg] Dr. Fadia Gordon Work Phone: [facility] 08-03-2022 14:10-0500 Diastolic blood pressure 96 mm[Hg] Dr. Fadia Gordon Work Phone: [facility] 08-03-2022 14:10-0500 Systolic blood pressure 161 mm[Hg] Dr. Fadia Gordon Work Phone: [facility] 06-02-2022 10:25-0500 Body temperature 98.01 [degF] Michelet Farmer STATE TESTED NURSING ASSISTANT.BAKER OPERATOR AUTOMATIC Work Phone: [facility] 06-02-2022 10:25-0500 Body weight 81.19 kg [place] Farmer STATE TESTED NURSING ASSISTANT.BAKER OPERATOR [employer]OMATIC Work Phone: [facility] 06-02-2022 10:25-0500 Diastolic blood pressure 83 mm[Hg] Michelet Farmer STATE TESTED NURSING ASSISTANT.BAKER OPERATOR [employer]OMATIC Work Phone: [facility] 06-02-2022 10:25-0500 Heart rate 71 /min [place] Farmer STATE TESTED NURSING ASSISTANT.BAKER OPERATOR AUTOMATIC Work Phone: [facility] 06-02-2022 10:25-0500 Systolic blood pressure 131 mm[Hg] Michelet Farmer STATE TESTED NURSING ASSISTANT.BAKER OPERATOR AUTOMATIC Work Phone: [facility] 05-13-2017 10:15-0500 BMI (Body Mass Index) 32.48 kg/m2 MD [facility] Work Phone: 05-13-2017 10:15-0500 BP Diastolic 60 mm[Hg] MD [facility] Work Phone: 05-13-2017 10:15-0500 BP Systolic 120 mm[Hg] MD [facility] Work Phone: 05-13-2017 10:15-0500 Height 157.48 cm MD [facility] Work Phone: 05-13-2017 10:15-0500 Pulse (Heart Rate) 68 /min MD [facility] Work Phone: 05-13-2017 10:15-0500 Respiratory Rate 20 /min MD [facility] Work Phone: 05-13-2017 10:15-0500 Weight 80.56 kg Michael Ward MD [facility] Work Phone: 05-12-2016 09:54-0500 BSA (Body Surface Area) 1.81 m2 MD [facility] Work Phone: Encounters Encounter Date Encounter Type Care Provider Facility Start: 11-09-2024 Non-patient / Non-visit Dr. Ernesto geller MD -[facility] Start: 11-09-2024 End: 11-09-[address] Fadia Gordon MD Work Phone: [facility] Work Phone: Start: 11-09-2024 End: 11-09-2024 Patient encounter procedure Suzy EEDN -Outpatient Bone Densitometry Work Phone: Start: 11-09-2024 End: 11-09-2024 ambulatory Suzy Benedict Facility:[facility] Start: 09-14-2024 End: 09-19-2024 Telephone encounter Michelet Farmer APRN.CNP Work Phone: Hematology/Oncology Comment on above: Appointment (/) Start: 06-26-2024 End: 06-30-2024 Refill Michelet Augustinnilesh SANTANABAKER OPERATOR AUTOMATIC Work Phone: Hematology/Oncology Comment on above: Refill Request Start: 05-03-2024 ambulatory Ernesto Duarte Facility:[facility] Start: 05-03-2024 End: 05-03-2024 ambulatory [facility] Facility:[facility] Start: 03-29-2024 End: 03-29-2024 ambulatory Suzy Benedict Facility:[facility] Start: 10-19-2023 End: 10-19-[address] Fadia Gordon Work Phone: [facility] Work Phone: Start: 10-19-2023 End: 10-19-[address] Fadia Gordon Work Phone: [facility] Work Phone: Start: 08-17-2023 End: 08-17-[address] Fadia Gordon Work Phone: [facility] Work Phone: Start: 08-13-2023 End: 08-13-[address] Fadia Gordon Work Phone: [facility] Work Phone: Start: 08-13-2023 End: 08-13-[address] Fadia Gordon Work Phone: [facility]-Outpatient Breast Imaging Work Phone: Start: 05-07-2023 Non-patient / Non-visit Dr. Gabriel Gordon Work Phone: [facility] Start: 05-07-2023 End: 05-07-[address] Fadia Gordon Work Phone: [facility]-Cardi[facility] Work Phone: Start: 03-17-2023 Non-patient / Non-visit Dr. Gbariel Gordon Work Phone: [facility] Start: 03-17-2023 End: 03-17-[address] Fadia Gordon Work Phone: [facility] Work Phone: Start: 03-17-2023 End: 03-17-[address] [facility] Work [facility] Start: 02-24-2023 End: 02-24-[address] Fadia Gordon Work Phone: [facility] Work Phone: Start: 02-19-2023 End: 02-19-[address] Fadia Gordon Work Phone: [facility] Work Phone: Start: 02-19-2023 End: 02-19-[address] Fadia Gordon Work Phone: [facility] Work Phone: Start: 02-03-2023 End: 02-03-[address] Fadia Gordon Work Phone: [facility] Work Phone: Start: 02-01-2023 Non-patient / Non-visit Dr. Gabriel Gordon Work Phone: [facility] Start: 02-01-2023 End: 02-01-[address] [facility]adia Gordon [facility] Work [facility]: Start: 08-04-2022 End: 08-04-[address] Fadia Gordon Work Phone: [facility] Work Phone: Start: 08-04-2022 End: 08-04-[address] Fadia Gordon Work Phone: [facility] Start: 08-03-2022 End: 08-03-[address] Fadia Gordon Work Phone: [facility] Start: 07-29-2022 Non-patient / Non-visit Dr. Gabriel Gordon Work Phone: [facility] Start: 07-29-2022 End: 07-29-[address] Fadia Gordon Work Phone: [facility] Work Phone: Start: 07-29-2022 End: 07-29-[address] Fadia Gordon Work Phone: [facility] Start: 06-02-2022 End: 06-02-2022 ambulatory Michelet Farmer APRN.BAKER OPERATOR [employer]OMATIC Work Phone: Hematology/Oncology Comment on above: Ductal carcinoma in situ (DCIS) of left breast (Primary Dx); Encounter for screening mammogram for high-risk patient Start: 06-02-2022 End: 06-02-2022 Patient encounter procedure Michelet Farmer STATE TESTED NURSING ASSISTANT.BAKER OPERATOR AUTOMATIC Work Phone: [facility] Start: 05-27-2022 Telephone encounter Michelet galloway APRN.BAKER OPERATOR [employer]OM[employer]IC Work Phone: Hematology/Oncology Comment on above: Refill Request Start: 07-22-2012 Evaluation and management of inpatient Dr. Fadia Gordon Work Phone: [facility]- Procedures Date Procedure Procedure Detail Performing Clinician Start: 11-09-2024 Dual energy X-ray absorptiometry Dr. Fadia Gordon MD Work Phone: Start: 11-09-[address] Fadia Gordon MD Work Phone: Start: 08-13-[address] Fadia Gordon Work Phone: Start: 03-17-2023 Cardiovascular stress test using pharmacologic stress agent Dr. Fadia Gordon Work Phone: Start: 02-19-2023 CT angiography of neck vessels Dr. Fadia Gordon Work Phone: Start: 07-29-[address] Fadia Gordon Work Phone: Start: 08-04-2019 H/O: surgery History of lumpectomy of left breast Dr. Fadia Gordon Work Phone: Start: 05-12-2016 End: 05-12-2016 CATALINA Ward MD Start: 05-12-2016 End: 05-12-2016 Follow Up Appt 1 year Michael Ward MD Start: 05-14-2015 End: 05-13-2017 Carotid duplex Michael Ward MD Start: 05-14-2015 End: 05-14-2015 PEDIATRIC NURSE Michael aWrd MD Start: 05-14-2015 End: 05-14-2015 Follow Up Appt 1 year Michael Ward MD Start: 05-15-2014 End: 05-15-2014 *Hepatic Function Panel Miladis Leo Start: 05-15-2014 End: 05-15-2014 CATALINA Ward MD Start: 05-15-2014 End: 05-15-2014 Follow Up Appt 1 year Michael Ward MD Start: 05-15-2014 End: 05-15-2014 Lipid 1996 panel - Serum or Plasma Michael Ward MD Start: 05-12-2013 End: 05-12-2013 CATALINA Ward MD Start: 05-12-2013 End: 05-12-2013 Follow Up Appt 1 year Michael Ward MD Start: 08-22-2012 Babita Michelet Darian HERNANDEZ Work Phone: Start: 06-01-2012 End: 06-01-2012 Follow Up Appt 1 year Michael Ward MD Start: 03-25-2012 End: 04-05-2012 24 hour holter monitor Michael Ward MD Start: 03-25-2012 End: 04-18-2012 Echocardiography Michael Ward MD Start: 03-25-2012 End: 03-25-2012 Follow Up Appt 2 months Miladis Leo Start: 03-25-2012 End: 04-18-2012 Stress Echocardiogram (treadmill) Michael Ward MD Plan of Treatment Date Care Activity Detail Author Start: 2026 RSV Vaccine (1 - 1-d ose 75+ series) RSV Vaccine (1 - 1-dose 75+ series) [facility] Start: 06-28-2024 Advance Directive Discussion Advance Directive Discussion [facility] Start: 02-27-2024 Covid-19 Vaccine ( season) Covid-19 Vaccine () [facility] Start: 02-27-2024 Influenza vaccination Influenza Vacc ine (#1) [facility] Start: 02-26-2022 Influenza vaccination INFLUENZA (#1) [facility] Start: 06-28-2021 ADVANCE DIRECTIVE DISCUSSION ADVANCE DIRECTIVE DISCUSSION [facility] Start: 06-28-2021 DEPRESSION ASSESSMENT DEPRESSION ASS ESSMENT [facility] Start: 12-18-2020 COVID-19 VACCINE (3 - Booster for Pfizer series) COVID-19 VACCINE (3 - Booster for Pfizer series) [facility] Start: 05-15-2019 Lipid panel Lipid Screening [facility] Start: 05-15-2019 LIPID SCREEN LIPID SCREEN [facility] Start: 05-12-2018 End: 05-12-2018 Appointment Appointment [facility] Work Phone: Start: 05-13-2017 End: 05-13-2017 PEDIATRIC NURSE PEDIATRIC NURSE [facility] Work Phone: Start: 05-13-2017 End: 05-13-2017 Follow Up Appt 1 year Follow Up Appt 1 year [facility] Work Phone: Start: 05-13-2017 End: 05-13-2017 Appointment Appointment [facility] Work Phone: Start: 05-12-2016 End: 05-12-2016 PEDIATRIC NURSE PEDIATRIC NURSE [facility] Work Phone: Start: 05-12-2016 End: 05-12-2016 Follow Up Appt 1 year Follow Up Appt 1 year [facility] Work Phone: Start: 02-13-2016 BONE DENSITY BONE DENSITY [facility] Start: 02-13-2016 PNEUMOCOCCAL: 65+ (1 - PCV) PNEUMOCOCCAL: 65+ (1 - PCV) [facility] Start: 02-13-2016 Screening for osteoporosis Bone Dens ity Screening [facility] Start: 08-17-2015 DIABETES SCREEN DIABETES SCREEN [facility] Start: 08-17-2015 Diabetes Screening Diabetes Screenin g [facility] Start: 05-14-2015 End: 05-14-2015 Carotid duplex Carotid duplex [facility] Work Phone: Start: 05-14-2015 End: 05-14-2015 PEDIATRIC NURSE PEDIATRIC NURSE [facility] Work Phone: Start: 05-14-2015 End: 05-14-2015 Follow Up Appt 1 year Follow Up Appt 1 year [facility] Work Phone: Start: 05-15-2014 End: 05-15-2014 *Hepatic Function Panel *Hepatic Function Panel [facility] Work Phone: Start: 05-15-2014 End: 05-15-2014 PEDIATRIC NURSE PEDIATRIC NURSE [facility] Work Phone: Start: 05-15-2014 End: 05-15-2014 Follow Up Appt 1 year Follow Up Appt 1 year [facility] Work Phone: Start: 05-15-2014 End: 05-15-2014 Lipid panel [AGGREGATE] *Lipid Profile CC PCP [facility] Work Phone: Start: 08-22-2013 Colonoscopy COLONOSCOPY [facility] Start: 08-22-2013 COLORECTAL CANCER SCREENING COLORECTAL CANCER SCREENING [facility] Start: 08-22-2013 Screening for malign ant neoplasm of colon [facility] Start: 05-12-2013 End: 05-12-2013 PEDIATRIC NURSE PEDIATRIC NURSE [facility] Work Phone: Start: 05-12-2013 End: 05-12-2013 Follow Up Appt 1 year Follow Up Appt 1 year [facility] Work Phone: Start: 06-01-2012 End: 06-01-2012 Follow Up Appt 1 year Follow Up Appt 1 year [facility] Work Phone: Start: 03-25-2012 End: 03-25-2012 24 hour holter monitor 24 hour holter monitor [facility] Work Phone: Start: 03-25-2012 End: 03-25-2012 Echocardiography Echocardiogram (complete) [facility] Work Phone: Start: 03-25-2012 End: 03-25-2012 Follow Up Appt 2 months Follow Up Appt 2 months [facility] Bianca randolph [facility] Work Phone: Start: 03-25-2012 End: 03-25-2012 Stress Echocardiogram (treadmill) Stress Echocardiogram (treadmill) [facility] Work Phone: Start: 2001 SHINGRIX VACCINE (1 of 2) WHARTON GRIX VACCINE (1 of 2) [facility] Start: 02-13-1996 COLOGUARD (FIT-DNA) COLOGUARD (FIT-D NA) [facility] Start: 02-13-[address] COLONOGRAPHY [facility] Start: 02-13-1996 FECAL OCCULT BLOOD FECAL OCCULT BLOO D [facility] Start: 02-13-1996 LIPID SCREEN LIPID SCREEN [facility] Start: 02-13-1996 Screening for malign ant neoplasm of colon [facility] Start: 02-13-1996 SIGMOIDOSCOPY SIGMOIDOSCOPY [facility] Start: 1991 Mammography MAMMOGRAM [facility] Start: 1991 Screening for malign ant neoplasm of breast Mammogram Screening [facility] Start: 1970 Urine microalbumin profile [facility] Start: 1969 Anxiety Screening Anxiety Screening [facility] Start: 1969 Depression Screening Depression Scre ening [facility] Start: 1969 HEPATITIS C SCREENING HEPATITIS C [facility] Start: 1969 Hepatitis C screening Hepatitis C [facility] End: 07-02-2023 WALTER SCREENING W MERY WALTER SCREENING W MERY Radiology Routine Ductal carcinoma in situ (DCIS) of left breast Encounter for screening mammogram for high-risk patient 1 Occurrences starting 06/02/2022 until 07/02/2023 [facility] Work Phone: Comment on above: 1 Occurrences starti ng 06/02/2022 until 07/02/2023 Patient Education METABOLIC+SYND DAWSON+X, HEART+HEALTHY+DIET [facility] Work Phone: Carotid arteries [facility] Payers Date Payer Category Payer Unknown [id number] 2024 Self-pay [id number] 2023 Medicare (Managed Care) [id number] 2021 Medicare [id number] 2020 Private Health Insurance [id number] 2012 Unknown [id number] 2006 Unknown LUIS ENRIQUE [id number] Unknown [id number] [id number] [id number] Unknown [id number] Unknown [id number] [id number] [id number] Unknown [id number] 2.16.8 [id number] Unknown [id number] [id number] [id number] Unknown [id number] [id number] [id number] Social History Date Type Detail Facility Start: 09-05-2019 End: 03-10-2023 Tobacco smoking status NHIS Never smoked tobacco [facility] Start: 09-05-2019 Tobacco use and exposure Smokeless tobacco non-user [facility] Start: 05-07-2021 End: 07-08-2023 Alcohol intake Not Asked [facility] Start: 1950 Sex Assigned At Not on file [facility] Start: 05-16-2020 End: 05-16-2020 Tobacco smoking status SCIS Unknown if ever smoked [facility] Start: 12-05-2019 Non-smoker [facility] Start: 1950 Sex Assigned At Female [facility] Start: 07-08-2023 End: 01-10-2024 History of Social function [facility] Start: 07-08-2023 End: 01-10-2024 Tobacco use panel [facility] National Score (1-100), lower number is lower risk [address] [facility] Medical Equipment Procedure Code Equipment Code Equipment Origin al Text Equipment Identifier Dates SEALANT,FLOSEAL HEMOSTATIC 5ML FDA Start: 08-04-2019 SUTURE,LIGA CLIP MED LT200 FDA Start: 08-04-2019 SUTURE,LIGA CLIP SM LT-100 FDA Start: 08-04-2019 SUTURE,LIGA CLIP SM LT-100 FDA Start: 08-04-2019 SUTURE,LIGA CLIP SM LT-100 FDA Start: 08-04-2019 SEALANT,FLOSEAL HEMOSTATIC 5ML FDA Start: 08-04-2019 SUTURE,LIGA CLIP MED LT200 FDA Start: 08-04-2019 SUTURE,LIGA CLIP SM LT-100 FDA Start: 08-04-2019 SUTURE,LIGA CLIP SM LT-100 FDA Start: 08-04-2019 SUTURE,LIGA CLIP SM LT-100 FDA Start: 08-04-2019 SEALANT,FLOSEAL HEMOSTATIC 5ML FDA Start: 08-04-2019 SUTURE,LIGA CLIP MED LT200 FDA Start: 08-04-2019 SUTURE,LIGA CLIP SM LT-100 FDA Start: 08-04-2019 SUTURE,LIGA CLIP SM LT-100 FDA Start: 08-04-2019 SUTURE,LIGA CLIP SM LT-100 FDA Start: 08-04-2019 SEALANT,FLOSEAL HEMOSTATIC 5ML FDA Start: 08-04-2019 SUTURE,LIGA CLIP MED [id number] FDA Start: 08-04-2019 SUTURE,LIGA CLIP SM LT-100 FDA Start: 08-04-2019 SUTURE,LIGA CLIP SM LT-100 FDA Start: 08-04-2019 SUTURE,LIGA CLIP SM LT-100 FDA Start: 08-04-2019 SEALANT,FLOSEAL HEMOSTATIC 5ML FDA Start: 08-04-2019 SUTURE,LIGA CLIP MED LT200 FDA Start: 08-04-2019 SUTURE,LIGA CLIP SM LT-100 FDA Start: 08-04-2019 SUTURE,LIGA CLIP SM LT-100 FDA Start: 08-04-2019 SUTURE,LIGA CLIP SM LT-100 FDA Start: 08-04-2019 Bare-metal carot id artery stent [id number] FDA Start: 04-06-2023 SEALANT,FLOSEAL HEMOSTATIC 5ML FDA Start: 08-04-2019 SUTURE,LIGA CLIP MED LT200 FDA Start: 08-04-2019 SUTURE,LIGA CLIP SM LT-100 FDA Start: 08-04-2019 SUTURE,LIGA CLIP SM LT-100 FDA Start: 08-04-2019 SUTURE,LIGA CLIP SM LT-100 FDA Start: 08-04-2019 SEALANT,FLOSEAL HEMOSTATIC 5ML FDA Start: 08-04-2019 SUTURE,LIGA CLIP MED LT200 FDA Start: 08-04-2019 SUTURE,LIGA CLIP SM LT-100 FDA Start: 08-04-2019 SUTURE,LIGA CLIP SM LT-100 FDA Start: 08-04-2019 SUTURE,LIGA CLIP SM LT-100 FDA Start: 08-04-2019 Clinical Notes 05-28-2022 to 09-19-2024 Telephone Encounter - Michelet Farmer APRN.CNP - 09/19/2024 3:01 PM EDTTelephone Encounter - Michelet Farmer APRN.CNP - 09/19/2024 3:01 PM EDTDayancy Farmer APRN.CNP - 06/02/2022 10:10 AM EST Note Date & Type Note Facility 09-19-2024 Telephone encount er Note Noted. Michelet Farmer APRN.CNP [facility] 09-19-2024 Miscellaneous Notes Formattin g of this note might be different from the original. Noted. Michelet Farmer APRN.CNP Pt. Says to thank Michelet for all her care, if down the road any issues with her breasts crop up, she will be sure to call office and schedule appt. Alem Brown LPN Noted. Michelet Farmer APRN.CNP Spoke with pt. She states she did have her mamm last year 08/13/2023, retrieved report from [facility] ,scanned into our system. Pt. States she has appt. With her PCP, Fadia Gordon MD on 10/07/2024 for annual physical, doesn't believe she really needs to see Michelet here if Dr. Gordon does a breast exam. Will discontinue Nolvadex 20 this September when she runs out of her current rx. Will go thru her PCP for yearly mamms and visits from this point on. Prefers not to schedule appt. With Michelet if she doesn't have to. Alem Brown LPN Spoke w pt and he said he would give message to call back and schedule. Orquidea Lr Message left with pts. for pt. To call and schedule appt.sometime in September. Alem Brown LPN documented in this encounter [facility] 09-19-2024 Telephone encount er Note Pt. Says to thank Michelet for all her care, if down the road any issues with her breasts crop up, she will be sure to call office and schedule appt. Alem Brown LPN [facility] 09-19-2024 Telephone encount er Note Noted. Michelet Farmer APRN.SURI [facility] 09-19-2024 Telephone encount er Note Spoke with pt. She states she did have her mamm last year 08/13/2023, retrieved report from [facility] ,scanned into our system. Pt. States she has appt. With her PCP, Fadia Gordon MD on 10/07/2024 for annual physical, doesn't believe she really needs to see Michelet here if Dr. Gordon does a breast exam. Will discontinue Nolvadex 20 this September when she runs out of her current rx. Will go thru her PCP for yearly mamms and visits from this point on. Prefers not to schedule appt. With Michelet if she doesn't have to. Alem Brown LPN [facility] 09-19-2024 Telephone encount er Note Spoke w pt and he said he would give message to call back and schedule. Orquidea Lr [facility] 09-14-2024 Telephone encount er Note Message left with pts. for pt. To call and schedule appt.sometime in September. Alem Brown LPN [facility] 06-26-2024 Telephone encount er Note Prescription Refill Information The patient has been identified by name and date of : Yes Caregiver verified no other encounters exist for this prescription request: Yes Caregiver confirmed with patient/requestor that no other refills are due, in the near future, with this provider at this time: Yes The last office visit in the department: 07/08/2023 Does the patient have a future office visit with this provider/department: No Pt was a no show for 6 month F/U, last mamm 08/2022 Requested Prescriptions Pending Prescriptions Disp Refills tamoxifen (NOLVADEX) 20 mg tablet [Pharmacy Med Name: TAMOXIFEN 20 MG TABLET] 3 Sig: TAKE 1 TABLET BY MOUTH EVERY DAY Alem Brown LPN June 26, 2024 12:12 PM [facility] 06-26-2024 Miscellaneous Notes Formattin g of this note is different from the original. Prescription Refill Information The patient has been identified by name and date of : Yes Caregiver verified no other encounters exist for this prescription request: Yes Caregiver confirmed with patient/requestor that no other refills are due, in the near future, with this provider at this time: Yes The last office visit in the department: 07/08/2023 Does the patient have a future office visit with this provider/department: No Pt was a no show for 6 month F/U, last mamm 08/2022 Requested Prescriptions Pending Prescriptions Disp Refills tamoxifen (NOLVADEX) 20 mg tablet [Pharmacy Med Name: TAMOXIFEN 20 MG TABLET] 3 Sig: TAKE 1 TABLET BY MOUTH EVERY DAY Alem Brown LPN June 26, 2024 12:12 PM documented in this encounter [facility] 06-02-2022 History of Presen t illness Narrative Chief Complaint Patient presents with: Established Patient HPI: Delores Krishna is a 72 year old female who presents here today for follow up DCIS. Per Dr. Walker's previous note: H/o type 2 diabetes, obesity, bilateral carotid artery stenosis, essential hypertension and hyperlipidemia. 07/10/2019: Bilateral screening mammography was performed which demonstrated a 1.1 x 0.8 cm asymmetrical density in the deep midportion of the left breast, recommend correlation with ultrasound. 07/11/2019: Left breast diagnostic mammography was performed which demonstrated a persistent 1.1 x 0.8 cm density in the central deep portion of the breast. Ultrasound demonstrated no evidence of sonographic abnormality. Recommend biopsy. Pathology: MICROSCOPIC DIAGNOSIS Left breast, deep mid portion, stereotactic core biopsy: Ductal carcinoma in situ with the following characteristics: Pattern - cribriform and papillary Nuclear Grade - 2 (intermediate) Necrosis - not identified Calcifications - not identified See comment. COMMENT Immunohistochemistry ([id number]) supports the above diagnosis. The hormone receptor studies ([id number]) will be reported separately. ER (clone [id number]) positive, >95%, strong intensity DC (clone 16/1E2) positive, >95%, strong intensity Her-2Neu (clone CB11) negative (0) Underwent stereotactic wire localization with left breast lumpectomy on 08/04/2019. Pathology: Left breast, lumpectomy with needle localization: Ductal carcinoma in situ. See cancer summary below. DUCTAL CARCINOMA IN SITU SUMMARY Procedure - excision with needle localization Specimen laterality - left Tumor site - density deep mid portion Specimen - partial breast Size (extent of DCIS): 0.7 x 0.5 cm (measured microscopically) Number of blocks with DCIS - 1 Number of blocks examined - 12 Histologic type - ductal carcinoma in situ Architectural pattern - cribriform Nuclear grade - grade 1 (low) Necrosis - not identified Margin - margin uninvolved by DCIS Distance from closest margin - the tumor is 0.5 cm away from the closest superior margin. Regional lymph nodes - no lymph nodes submitted or found. Additional Pathologic Findings - - fibrocystic change and intraductal hyperplasia with focal atypia. - Skin, dermal fibrosis consistent with scar. - Changes consistent with previous biopsy site. Ancillary Studies from previous specimen ([id number] / [id number]): ER - positive (>95%, strong intensity) DC - positive (>95%, strong intensity) Her2 naga (IHC) - negative (0) Microcalcifications - not identified Clinical history - Please make reference to previous specimen ([id number]) left breast, deep mid portion, stereotactic core biopsy with diagnosis of ductal carcinoma in situ. Radiologic findings - density area in the deep central portion of the breast. Pathologic Staging: pTis(DCIS) pNx Mx She feels well and has no complaints. Family History Father CAD (coronary artery disease) COPD (chronic obstructive pulmonary disease) Mother CVA (cerebral vascular accident) Hypertension Surgical History History of lumpectomy of right breast (Acute) H/O tubal ligation (Resolved) History of right-sided carotid endarterectomy (Resolved 2012) Gynecological History Age at first period: 15 Hx Age of Menopause 47 Do you have regular cycle director No examinations and PAP smears? Date of last PAP smear: 07/29/16 Hx Control Yes Hx Hormone Therapy No Obstetrical History Number of pregnancies: 4 Number of children: 2 Have you ever breastfed in the No past? Breast Health Monthly breast self-exams Yes performed? Do you have regular clinical Yes breast examinations? Date of last mammogram: 07/17/19 Have you ever had an abnormal Yes mammogram? Social History - Tobacco Smoking Status Never smoker Smokeless tobacco usage: Never Passive smoke exposure: No Social History - Substance Drug use: No Caffeine use [drinks/day]: 2 Alcohol use: Yes Type of alcohol: RARELY RADIATION:Received at [facility]. Current therapy:Tamoxifen Began after radiation September 2019 Pt. overdue for OV. Last visit-05/07/21. No showed November 2021. No new concerns today. Appetite:Wonderful. Energy level:Good. Denies fevers or recent illness. Resp:denies cough or sob Cardiac:denies chest pain/palpitations GI:denies abd pain, n/v, moving bowels regularly :denies dysuria/hematuria Extrem:denies pain Endo:denies hot flashes Neuro:denies symptoms of neuropathy Skin:denies rashes/lesions Heme:denies bleeding, pelvic exam per PCP will have spring 2022 The ROS is otherwise negative. Past medical history, appointments, medications, allergies reviewed. No changes. EXAM: BP 131/83 Pulse 71 Temp 36.7 C (98 F) (Temporal) Wt 81.2 kg (179 lb) BMI 33.27 kg/m APPEARANCE Well appearing, alert, in no acute distress, well-hydrated, well nourished. HEART RRR with normal S1 and S2, no murmurs LUNG clear to auscultation BREAST FEMALE no mass/nodule b/l, scar to L lower/inner LYMPH NODES No cervical lymphadenopathy, No supraclavicular lymphadenopathy, and No axillary lymphadenopathy. ABDOMEN bowel sounds normoactive, soft, non-tender EXTREMITIES No edema NEURO Awake, alert and oriented x 3, Normal gait, and No involuntary motions. SKIN Skin color, texture, turgor normal, no suspicious rashes or lesions ASSESSMENT/PLAN: 1. Ductal carcinoma in situ (DCIS) of left breast - ICD9: 233.0, ICD10: D05.12 (primary diagnosis) - No new concerning findings on exam. - Tolerating tamoxifen well. - Continue tamoxifen. Rx done. - Pelvic exam per PCP-followed as scheduled. - Mammogram due 2022-pt. has this done at [facility]. - Follow up in 6 months. - Pt. aware to call office with any questions/concerns. The patient indicates understanding of these issues and agrees with the plan. All documentation from previous visit of 05/07/21-Dr. Walker/myself was copied and pasted, documentation has been reviewed and edited as necessary for today's visit. Michelet Farmer APRN.SURI documented in this encounter [facility] 05-28-2022 Miscellaneous Notes Formattin g of this note might be different from the original. Pt. Notified rx sent to pharmacy. Alem Marquez LPN The following approved medication requests have been transmitted electronically. Requested Prescriptions Signed Prescriptions Disp Refills tamoxifen (NOLVADEX) 20 mg tablet 30 tablet 0 Sig: Take 1 tablet (20 mg) by mouth once daily. Authorizing Provider: MICHELET FARMER APRN.BAKER OPERATOR [employer]OMAT[employer] Scheduled next Wednesday. Patient stated she only has 2 pills left, requesting one month supply be sent to pharmacy until OV. Please advise. KARINAI . Pt. Was a no show for November 2021 appt. Alem Marquez LPN Received fax refill req on pt for tomoxifen. No OV set up, last OV 05/07/21. Please reach out to pt and set up for one year OV. Sheri García LPN documented in this encounter [facility] Evaluation note Diagnosis Ductal carcinoma in situ (DCIS) of left breast- Primary Encounter for screening mammogram for high-risk patient documented [facility] Diagnosis Onset Date Resolution Status 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 Bilateral carotid artery stenosis resolved [facility] Work Phone: Evaluation note* Diagnosis Onset Date Resolution Status Recurrent stenosis of left carotid artery acute [facility] Work Phone: Evaluation note* Diagnosis Onset Date Resolution Status Recurrent stenosis of left carotid artery acute Bilateral carotid artery stenosis chronic [facility] Work Phone: Evaluation note* Diagnosis Onset Date Resolution Status Recurrent stenosis of left carotid artery acute 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 [facility] Work Phone: Evaluation noteNo assessment information available [facility] Work Phone: Reason for referral (narrative)* Diagnostic Procedure Only (Routine) - Authorized Specialty Diagnoses / Procedures Referred By Contsriram t Referred To Contact [facility] Diagnoses Ductal carcinoma in situ (DCIS) of left breast Encounter for screening mammogram for high-risk patient Procedures WALTER SCREENING W MERY SCREENING DIGITAL BREAST TOMOSYNTHESIS BI SCREENING MAMMOGRAPHY BI 2-VIEW BREAST INC Michelet Coy APRN.CNP [address] [place] [address] [facility] [address] [place] [address] Referral ID Status Reason Start Date Expiration Date Visits Requested Visits Authorized [id number] Authorized Auto-Generat ed Referral 06/02/2022 07/02/2023 [facility]No reason for referral information availableWFirelands [facility] Work Phone: Chief Complaint and Reason for Visit Chief Complaint BILAT CAROTID STENOS IS Yearly Breast Check/Mammo/US 07/29 [facility] Reason for Visit Ductal carcinoma in situ (DCIS) of left breast Bilateral carotid artery stenosis Chief Complaint CAROTID STENOSIS CAROTID U/S RESULTS AGRESSIVE CAROTID STENOSIS Reason for Visit Recurrent stenosis o f left carotid artery Chief Complaint CAROTID STENOSIS CAROTID U/S RESULTS AGRESSIVE CAROTID STENOSIS CONSULT-CAROTID PRE-OP PRE-OP Reason for Visit Recurrent stenosis o f left carotid artery Bilateral carotid artery stenosis Chief Complaint S/P L TCAR SCREENING ROUTINE BREAST CHECK Reason for Visit Recurrent stenosis o f left carotid artery Ductal carcinoma in situ (DCIS) of left breast Chief Complaint SCREENING ROUTINE BREAST CHECK Reason for Visit Recurrent stenosis o f left carotid artery Ductal carcinoma in situ (DCIS) of left breast Chief Complaint Admit Date SCREENING November 09, 2024 10:38 am Family History No Family History Records Found Relationship Condition Age at Onset Recorded Date/T [place] father Coronary artery disease Unknown Chronic obstructive pulmonary disease Unk nown mother Cerebrovascular accident (CVA) Unknown Hypertension Unknown Advance Directives No Advanced Directives Records Found Advance Directive Response Recorded Date/ Time Living Will No August 03 3:03pm Power of Director Data Management No August 03, 2019 3:03pm Advance Directive Response Recorded Date/ Time Living Will No August 03 4:03pm Power of Director Data Management No August 03, 2019 4:03pm Advance Directive Response Recorded Date/ Time Living Will No March 10, 2023 3:07pm Power of Director Data Management No February 3:07pm Advance Directive Response Recorded Date/ Time Living Will No April 06 10:07am Power of Director Data Management No April 06, 2023 10:07am Advance Directive Response Recorded Date/ Time Living Will No April 06 11:07am Power of Director Data Management No April 06, 2023 11:07am Summary Purpose Additional Source Comments Source Comments (unrecognize d section and content) In the event this informatio n is protected by the Federal Confidentiality of Alcohol and Drug Abuse Patient Records regulations: The Federal rules restrict any use of the information to criminally investigate or prosecute any alcohol or drug abuse patient.[facility] the event this information is protected by the Federal Confidentiality of Alcohol and Drug Abuse Patient Records regulations: The Federal rules restrict any use of the information to criminally investigate or prosecute any alcohol or drug abuse patient.[facility] HospitalIn the event this information is protected by the Federal Confidentiality of Alcohol and Drug Abuse Patient Records regulations: The Federal rules restrict any use of the information to criminally investigate or prosecute any alcohol or drug abuse patient.[facility] HospitalIn the event this information is protected by the Federal Confidentiality of Alcohol and Drug Abuse Patient Records regulations: The Federal rules restrict any use of the information to criminally investigate or prosecute any alcohol or drug abuse patient.[facility] Reason for Visit (unrecogniz ed section and content) Reason Comments Refill Request Reason Comments Established Patient Reason Comments Appointment Care Teams (unrecognized sec tion and content) Card Filer Relationship Specialty Start Date End Date Fadia Gordon PCP - General Family Medicine 07/11/12 Card Filer Relationship Specialty Start Date End Date Fadia Gordon PCP - General Family Medicine 07/11/12 Team Status: Active Member Role Status Dates Dr. Fadia Gordon MD Family Provider Active Dr. Fadia Gordon MD Primary Care Provider Active Team Status: Inactive Member Role Status Dates Dr. Fadia Gordon MD Primary Care Provider Active Dr. Kole Talavera MD Attending Provider, Referring Provider Active Team Status: Active Member Role Status Dates Dr. Fadia Gordon MD Primary Care Provider Active Dr. Kole Talavera MD Attending Provider Active Team Status: Active Member Role Status Dates Dr. Fadia Gordon MD Primary Care Provider, [facility] Eunice parnell Active Team Status: Active Member Role Status Dates Dr. Fadia Gordon MD Primary Care Prov ider, Attending Provider, Referring Provider Active Team Status: Inactive Member Role Status Dates Dr. Fadia Gordon MD Primary Care Prov ider, Attending Provider, Referring Provider Active Team Status: Active Member Role Status Dates Dr. Fadia Gordon MD Primary Care Provider Active Dr. Kole Talavera MD Attending Provider, Referring Provider Active Team Status: Inactive Member Role Status Dates Dr. Fadia Gordon MD Primary Care Provider, Referrin g Provider Active Dr. Kole Talavera MD Attending Provider Active Team Status: Inactive Member Role Status Dates Dr. Fadia Gordon MD Primary Care Provider Active Dr. Kole Talavera MD Attending Provider, Referring Provider Active Dr. Ernesto Duarte MD Other Provider Active Team Status: Inactive Member Role Status Dates Dr. Fadia Gordon MD Primary Care Provider, Referrin g Provider Active Dr. Ernesto Duarte MD Attending Provider Active Team Status: Active Member Role Status Dates Dr. Fadia Gordon MD Primary Care Provider Active Dr. Ernesto Duarte MD Referring Provider, Other Provide r Active Dr. Michael Ward MD Attending Provider Active Team Status: Inactive Member Role Status Dates Dr. Fadia Gordon MD Primary Care Provider Active Dr. Ernesto Duarte MD Attending Provider, Referring Pro vider Active Team Status: Active Member Role Status Dates Dr. Fadia Gordon MD Primary Care Provider Active Dr. Ernesto Duarte MD Attending Provider Active [employer] Dugan Referring Provider Active Team Status: Inactive Member Role Status Dates Dr. Fadia Gordon MD Primary Care Provider Active MEEK Dugan Attending Provider, Referring Provid er Active Card Filer Relationship Specialty Start Date End Date Fadia Gordon PCP - General Family Medicine 07/11/12 Card Filer Relationship Specialty Start Date End Date Fadia Gordon PCP - General Family Medicine 07/11/12 Team Status: Active Member Role Status Dates Dr. Fadia Gordon MD Primary Care Provider Active Team Status: Active Member Role Status Dates Dr. Fadia Gordon MD Primary Care Provider Active Start: July 22, 2012 Dr. Fadia Gordon MD Family Provider Active St art: July 22, 2012 Team Status: Inactive Member Role Status Dates Dr. Fadia Gordon MD Primary Care Provider Active Start: November 09, 2024 End: November 09, 2024 Dr. Fadia Gordon MD Other Provider Active Sta rt: November 09, 2024 End: November 09, 2024 MEEK Dugan Attending Provider Active Star t: November 09, 2024 End: November 09, 2024 MEEK Dugan Referring Provider Active Star t: November 09, 2024 End: November 09, 2024 Team Status: Active Member Role Status Dates Dr. Fadia Gordon MD Primary Care Provider Active Start: November 09, 2024 Dr. Ernesto Duarte MD Attending Provider Active S tart: November 09, 2024 Goals (unrecognized section and content) Goals may be documented in a n alternate sectionGoals may be documented in an alternate sectionGoals may be documented in an alternate sectionGoals may be documented in an alternate sectionGoals may be documented in an alternate sectionGoals may be documented in an alternate sectionGoals may be documented in an alternate section INFORMATION SOURCE (unrecogn ized section and content) DATE CREATED AUTHOR 09/20/2024 [facility] DATE CREATED AUTHOR AUTHOR'S ORGANIZ ATION 12/11/2024 [facility] FOR RECORDS PERTAINING TO PATIENTS WHO ARE OR HAVE BEEN ENROLLED IN A CHEMICAL DEPENDENCY/SUBSTANCEABUSE PROGRAM, SOME INFORMATION MAY BE OMITTED. This clinical summary was aggregated from multiple sources. Caution should be exercised in using it in the provision of clinical care. This summary normalizes information from multiple sources, and as a consequence, information in this document may materially change the coding, format and clinical context of patient data. In addition, data may be omitted in some cases. CLINICAL DECISIONS SHOULD BE BASED ON THE PRIMARY CLINICAL RECORDS. [employer] provides no warranty or guarantee of the accuracy or completeness of information in this document.
--- OUTSIDE RECORDS SUMMARY | 2025-04-17 21:10 | XMS RPT_ITS | CCD ---
Author Organization [facility] CliniSynd Care Team Providers Care Staff Research Scientist Name Role Phone MD Sylvia, Michael Woodson Unavailable Fadia Gordon Primary Care Provider Dr. Fadia Gordon Primary Care Provider Dr. Kole Talavera Attending Provider Dr. Kole Talavera Referring Provider Dr. Fadia Gordon Primary Care Provider [phone] Kole Talavera Attending Provider Dr. Kole Talavera Referring Provider [phone] Fadia Gordon Referring Provider [phone] [...] [phone] Kole Talavera Attending Provider Fadia Gordon Primary Care Provider [phone] Dr. Fadia Gordon MD Primary Care Provider Evan MCALLISTER, Dr. Fadia Woodson Other Provider Jak PA, Suzy Attending Provider Benedict PA, Suzy Referring Provider Felicia CMALLISTER, Dr. Orozco Attending Provider [phone] Ernesto Duarte Attending Unavailable Jolliff, Fadia S [...] TABS One tablet by mouth daily ASPIRIN [id number] Michael Ward MD Start: 05-12-2013 take 1 tablet by holly th every week ASPIRIN EC 81 MG TBEC One tablet by mouth daily every 3 days per week ASPIRIN [id number] Michael Wadr MD Comment on above: Take 81 mg [...] One tablet by mouth daily ATORVASTATIN CALCIUM [id number] Michael Ward MD Comment on above: Take [...] One tablet by mouth daily MULTIPLE VITAMINS-MINERALS [id number] Michael Ward MD Start: 05-14-2015 take 1 tablet by holly th once daily ONE-A-DAY WOMENS 50+ ADVANTAGE TABS One tablet by mouth daily MULTIPLE VITAMINS-MINERALS [id number] Michael Ward MD Start: 05-14-2015 End: 05-12-2016 take 1 tablet by mouth once daily ONE-A-DAY WOMENS 50+ ADVANTAGE TABS One tablet by mouth daily MULTIPLE VITAMINS-MINERALS [id number] Michael Ward MD [place]-3 Fatty Acids (Fish Oil Concentrate) 1,000 mg capsule (7 sources) Start: 11-18-2017 End: 05-12-2018 take 1 capsule by mouth once daily [place] [facility] Fatty Acids (Fish Oil Concentrate) 1,000 mg capsule Discontinued 1000 mg PO daily November 18, 2017 12:00am May 12, 2018 10:46am Start: 11-18-2017 End: 05-12-2018 take 1 capsule by mouth once daily [place] [facility] Fatty Acids (Fish Oil Concentrate) 1,000 mg capsule Discontinued 1000 MG PO daily November 18, 2017 12:00am May 12, 2018 10:46am Start: 11-18-2017 End: 05-12-2018 take 1 capsule by mouth once daily [place] [facility] Fatty Acids (Fish Oil Concentrate) 1,000 mg [...] on 11-09-2024 Study report Skeletal system DXA [facility] Imaging Services [address], [place] [address] Dexa Bone Density Study MR#: [id number] Acct: [id number] Name: DELORES KRISHNA Rep #: [id number] : 1950 F 74 From: Jerrod Persaud MD PCP: Dr. Fadia Gordon MD Status: [facility] CLI Study:Dexa Bone Density Study Date of Exam: 11/09/24 Exam# [id number] Ordering Dr: Fadia Gordon MD PROCEDURE: DEXA BONE DENSITY STUDY 11/09/2024 REASON FOR EXAM: F, age 74 y/o . Postmenopausal. TECHNIQUE: DXA scan of sites with data reported below. REFERENCE LINKS: [facility] Adult Positions COMPARISON: Prior study dated [...] Recommend follow-up as clinically warranted. Reading Location: [id number] CC: Dr. Fadia Gordon MD ~ Trench Trimmer Fine: Signed [facility] Breast imaging reportOrdered By: Travis Persaud on 11-09-2024 Study report [facility] Imaging Services [address] [place] [address] SCRN MAMM (CAD)W/MERY BILAT MR#: [id number] Acct: [id number] Name: DELORES KRISHNA Rep #: [id number] : 1950 F 74 From: Jerrod Persaud MD PCP: Dr. Fadia Gordon MD Status: REG CLI Study:SCRN MAMM (CAD)W/MERY BILAT Date of Exa m: 11/09/24 Exam# [id number] Ordering Dr: Fadia Gordon MD EXAM: SCRN [...] be mailed to the patient. Reading Location: [id number] CC: Dr. Fadia Gordon MD ~ Trench Trimmer Fine: Signed [facility] Carotid Duplex Ultrasoundon 11-09-2024 Carotid Duplex Ultrasound [facility] Cardiovascular Services [address] [place] [address] Carotid Duplex Ultrasound 11/09/24 1105 MR#: [id number] Acct: [id number] Name: DELORES KRISHNA Rep #: [id number] : 1950 74 From: Ernesto Duarte MD [...] the left vertebral artery. Procedure Carotid Duplex 54740. This is a Carotid Duplex examination using [...] Date Dictated: 11/09/24 1105 Date Transcribed: 11/09/241715 Trench Trimmer Fine: Signed Normal [facility] Dexa Bone Density Studyon Dexa Bone Density Study [facility] Imaging Services [facility] [place] [address] Dexa Bone Density Study MR#: [id number] Acct: [id number] Name: DELORES KRISHNA Rep #: [id number] : 1950 F 74 From: Travis quach MD PCP: Dr. Fadia Gordon MD Status: REG CLI Study: Dexa Bone Density Study Date of Exam: 11/09/24 Exam# [id number] Ordering Dr: Fadia Gordon MD PROCEDURE: DEXA BONE DENSITY STUDY 11/09/2024 REASON FOR EXAM: F, age 74 y/o . Postmenopausal. TECHNIQUE: DXA scan of sites with data reported below. REFERENCE LINKS: [facility] Adult Positions COMPARISON: Prior study dated August [...] Recommend follow-up as clinically warranted. Reading Location: [facility] CC: Dr. Fadia Gordon MD Trench Trimmer Fine: Signed Normal [facility] Duplex ultrasound of carotid artery reportOrdered By: Ernesto Duarte on 11-09-2024 Study report [facility] Cardiovascular Services [address] [place] [address] Carotid Duplex Ultrasound 11/09/24 1105 MR#: [id number] Acct: [id number] Name: DELORES KRISHNA Rep #:[id number] : [...] the left vertebral artery. Procedure Carotid Duplex 17957. This is a Carotid Duplex examination using [...] ~ Date Dictated: 11/09/245 Date Transcribed: 11/09/241715 Trench Trimmer Fine: Signed [facility] Work Phone: SCRN MAMM (CAD)W/MERY BILATo n 11-09-2024 SCRN MAMM (CAD)W/MERY BILAT [facility] Imaging Services [address] [place] [id number] SCRN MAMM (CAD)W/MERY BILAT MR#: [id number] Acct: [id number] Name: DELORES KRISHNA Rep #: [id number] : 1950 F 74 From: Travis quach MD PCP: Dr. Fadia Gordon MD Status: REG [facility] Study: SCRN MAMM (CAD)W/MERY BILAT Date of Exam: 10/26 11/19 Exam# [id number] Ordering Dr: Fadia Gordon MD EXAM: SCRN [...] be mailed to the patient. Reading Location: [id number] CC: Dr. Fadia Gordon MD Trench Trimmer Fine: Signed [facility] 09-14-2024 CNPN Telephone ([employer]) ---- DELORES KRISHNA ([id number]) 1950 F Date Time Provider Department 09/14/24 [...] mamm last year 08/13/2023, retrieved report from [facility] ,scanned into our system. Pt. States [...] Status:Closed by ALEM BROWN on 09/19/24 Normal [facility] Carotid Duplex Ultrasoundon 05-03-2024 Carotid Duplex Ultrasound [facility] Cardiovascular Services [address] [place] [address] Carotid Duplex Ultrasound 05/03/24 0951 MR#: [id number] Acct: [id number] Name: DELORES KRISHNA Rep #: [id number] : 1950 74 From: Ernesto Duarte MD [...] the left vertebral artery. Procedure Carotid Duplex 00374. This is a Carotid Duplex examination using B-mode, color flow and specral Doppler. The exam was diagnostic. 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 Less than 70% stenosis left extracranial internal carotid stent. Patent and antegrade vertebrals bilaterally. __ Ordering Physician: Suzy Benedict Referring Physician: Fadia Chapa Performed By: Bobby Ingram, [facility] 05/08/241999 Date Ernesto Duarte MD CC: MEEK Dugan; Dr. Fadia Gordon MD Date Dictated: 05/03/24 0951 Date Transcribed: 05/08/241999 Trench Trimmer Fine: Signed Normal [facility] MR/BMS.BVSon 03-29-2024 MR/BMS.BVS [facility] [address] [facility] [place] [address] OFFICE VISIT Date of Service: 03/29/24 MR#: [id number] Acct: [id number] Name: DELORES KRISHNA Rep #: [id number] : 1950 Provider: MEEK Dugan Age/Sex: [...] 03/29/24 History mg/3 mL) subcutaneous pen injector (Powered by [employer]) atorvastatin 80 mg tablet 80 mg PO [...] No sys (more content not included)... Normal [facility] Basophil percentageOrdered B y: Fadia Gordon on 10-19-2023 Chloride [Moles/Vol] 105 mmol/L 98-107 [facility] Cholesterol [Mass/Vol] 133 mg/dL <200 [facility] Comment on above: <200 mg/dL Desirable 200-240 mg/dL Borderline >240 mg/dL High Risk Glucose [Mass/Vol] 123 mg/dL 74-106 [facility] Comment on above: Fasting Glucose resu lt from 100 to 125 mg/dL suggests IMPAIRED HOMEOSTASIS per A.D.A. criteria. Potassium [Moles/Vol] 4.1 mmol/L 3.5-5.1 [facility] Sodium [Moles/Vol] 139 mmol/L 136-145 [facility] Triglyceride [Mass/Vol] 160 mg/dL <199 [facility] Comment on above: The drugs N-Acetylcy steine and Metamizole may falsely depress this assay.Serum Triglycerides Reference Interval Normal <150 mg/dL Borderline high 150 - 199 mg/dL High 200 - 499 mg/dL Very High > or = 500 mg/dL Laboratory - Chemistry and C hemistry - challengeOrdered By: Fadia Gordon on 10-19-2023 ALT [Catalytic activity/Vol] 19 U/L 13-56 [facility] Cholesterol in HDL [Mass/Vol] 52 mg/dL >40 [facility] Comment on above: The drugs N-Acetylcy steine and Metamizole may falsely depress this assay. Reference Range HDL <40 mg/dL Low HDL Cholesterol HDL >or= 60 mg/dL High HDL Cholesterol Cholesterol in LDL [Mass/Vol] 49 mg/dL 0-130 [facility] CO2 [Moles/Vol] 28.0 mmol/L 21.0-32.0 [facility] Urea nitrogen/Creatinine [Mass ratio] 15.3 mg/mg 10-20 [facility] No Panel InformationOrdered By: Fadia Gordon on 10-19-2023 Estimated GFR (MDRD) Amer 62 mL/min >60 [facility] Comment on above: GFR Calc Estimated GFR (MDRD) Non-Af Amer 51 mL/min >60 [facility] Comment on above: Non- GFR Calc VLDL Cholesterol 32 mg/dL 5-40 [facility] Serum or plasma calcium job urement (mass/volume)Ordered By: Fadia Gordon on 10-19-2023 Calcium [Mass/Vol] 9.4 mg/dL 8.5-10.1 [facility] Serum or plasma creatinine m easurement (mass/volume)Ordered By: Fadia Gordon on 10-19-2023 Creatinine [Mass/Vol] 1.11 mg/dL 0.55-1.02 [facility] Comment on above: The validity of the calculated GFR & GFRAA in patients over 70 years has not been determined. Clinical correlation is essential. Serum or plasma urea nitroge n measurement (mass/volume)Ordered By: Fadia Gordon on 10-19-2023 Urea nitrogen [Mass/Vol] 17 mg/dL 7-18 [facility] Thin prep Papanicolaou smear with manual screeningOrdered By: Fadia Gordon on 10-19-2023 Protein (U) [Mass/Vol] 21.5 mg/dL 0.0-11.8 [facility] Thin prep Papanicolaou smear with manual screening 22 U/L 15-37 [facility] Thin prep Papanicolaou smear with manual screening 6 5-15 [facility] Urine creatinine measurement (mass/volume)Ordered By: Fadia Gordon on 10-19-2023 Creatinine (U) [Mass/Vol] 138.00 mg/dL NO RANGE EST. [facility] Urine protein/creatinine mas s ratioOrdered By: Fadia Gordon on 10-19-2023 Protein/Creatinine (U) [Mass ratio] 156 mg/g CRE 0-200 [facility] Basophil percentageOrdered B y: Kole Talavera on 02-19-2023 Creatinine [Mass/Vol] 1.0 mg/dL 0.55-1.02 [facility] Laboratory - Chemistry and C hemistry - challengeOrdered By: Kole Talavera on 02-19-2023 GFR/1.73 sq M.predicted among non-blacks MDRD (S/P/Bld) [Vol rate/Area] 59.0000 mL/min/{1.73_m2} >60 [facility] Basophil percentageOrdered B y: Dr. Gordon on 08-04-2022 Cholesterol [Mass/Vol] 125 mg/dL <200 [facility] Comment on above: <200 mg/dL Desirable 200-240 mg/dL Borderline >240 mg/dL High Risk Triglyceride [Mass/Vol] 208 mg/dL <199 [facility] Comment on above: The drugs N-Acetylcy steine and Metamizole may falsely depress this assay.Serum Triglycerides Reference Interval Normal <150 mg/dL Borderline high 150 - 199 mg/dL High 200 - 499 mg/dL Very High > or = 500 mg/dL Serum or plasma cholesterol in HDL measurement (mass/volume)Ordered By: Dr. Gordon on 08-04-2022 Cholesterol in HDL [Mass/Vol] 47 mg/dL >40 [facility] Comment on above: The drugs N-Acetylcy steine and Metamizole may falsely depress this assay. Reference Range HDL <40 mg/dL Low HDL Cholesterol HDL >or= 60 mg/dL High HDL Cholesterol Serum or plasma cholesterol in VLDL measurement (mass/volume)Ordered By: Dr. Gordon on 08-04-2022 Cholesterol in VLDL [Mass/Vol] 42 mg/dL 5-40 [facility] Serum or plasma low density lipoprotein (LDL) cholesterol measurement (mass/volume)Ordered By: Dr. Gordon on 08-04-2022 Cholesterol in LDL [Mass/Vol] 36 mg/dL 0-130 [facility] Office Visiton 05-13-2017 Documentation of current medications (procedure) Done Invalid Interpretation Code [employer] Work Phone: [phone] Fall risk assessment No Invalid Interpretation Code [employer] Work Phone: [phone] Clinical Lists Update: Pre05-06-2016 Left ventricular Ejection fraction 57 % Invalid Interpretation Code [employer] Work Phone: [phone] Clinical Lists Update: Pre12-31-2015 Alanine aminotransferase (ALT) 41 U/L Invalid Interpretation Code [employer] Work Phone: [phone] Albumin 3.7 g/dL Invalid Interpretation Code [employer] Work Phone: [phone] Alkaline phosphatase (ALP) 115 U/L Invalid Interpretation Code [employer] Work Phone: [phone] Anion gap 8 mmol/L Invalid Interpretation Code [employer] Work Phone: [phone] Aspartate aminotransferase (AST) 31 U/L Invalid Interpretation Code [employer] Work Phone: [phone] Bilirubin (total) 0.80 mg/dL Invalid Interpretation Code [employer] Work Phone: [phone] BUN/Creatinine Ratio 19.9 mg/mg Invalid Interpretation Code [employer] Work Phone: [phone] Calcium 9.0 mg/dL Invalid Interpretation Code [employer] Work Phone: [phone] Chloride 102 mmol/L Invalid Interpretation Code [employer] Work Phone: [phone] Cholesterol 154 mg/dL Invalid Interpretation Code [employer] Work Phone: [phone] CO2 26.0 mmol/L Invalid Interpretation Code [employer] Work Phone: [phone] Creatinine 0.80 mg/dL Invalid Interpretation Code [employer] Work Phone: [phone] Globulin 4.0 g/dL High [employer] Work Phone: [phone] Glucose mass conc 136 mg/dL High [employer] Work Phone: [phone] HDL Cholesterol 46 mg/dL Invalid Interpretation Code [employer] Work Phone: [phone] LDL Cholesterol 85 mg/dL Invalid Interpretation Code [employer] Work Phone: [phone] Potassium molar conc 4.3 mmol/L Invalid Interpretation Code [employer] Work Phone: [phone] Protein 7.7 g/dL Invalid Interpretation Code [employer] Work Phone: [phone] Sodium 136 mmol/L Invalid Interpretation Code [employer] Work Phone: [phone] Triglyceride 114 mg/dL Invalid Interpretation Code [employer] Work Phone: [phone] Urea nitrogen 16 mg/dL Invalid Interpretation Code [employer] Work Phone: [phone] very low density lipoproteins 23 mg/dL Invalid Interpretation Code [employer] Work Phone: [phone] Lab Report: LIVERon 05-15-20 14 ALK 87 U/L Normal 50-136 [employer] Work Phone: [phone] Bilirubin (direct) 0.08 mg/dL Normal 0.00-0.30 [facility] Work Phone: [phone] Office Visiton 05-15-2014 Dietary management education, guidance, and counseling (procedure) yes Invalid Interpretation Code [facility] Work Phone: [phone] Tobacco use CPHS Never smoker Invalid Interpretation Code [facility] Work Phone: [phone] Clinical Lists Update: Prelo disability rater 08-25-2012 Erythrocytes (RBC) 3.32 10*6/uL Low [facility] Work Phone: [phone] Hematocrit (HCT) 29.8 % Low [facility] Work Phone: [phone] Hemoglobin mass conc (Bld) 9.8 g/dL Low [facility] Work Phone: [phone] MCH 29.5 pg Invalid Interpretation Code [facility] Work Phone: [phone] MCV 89.8 fL Invalid Interpretation Code [facility] Work Phone: [phone] Platelets 246 10*3/mm3 Invalid Interpretation Code [facility] Work Phone: [phone] WBC (Leukocytes) 9.1 10*3/uL Invalid Interpretation Code [facility] Work Phone: [phone] Vital Signs Date Time Vital Sign Value Performing Clinician Facility 08-17-2023 13:10-0500 Diastolic blood pressure 108 mm[Hg] Dr. Fadia Gordon Work Phone: [facility] 08-17-2023 13:10-0500 Respiratory rate 16 /min Dr. Fadia Gordon Work Phone: [facility] 08-17-2023 13:10-0500 Systolic blood pressure 166 mm[Hg] Dr. Fadia Gordon Work Phone: [facility] 02-24-2023 15:21-0400 Body temperature 98.2 [degF] Dr. Fadia Gordon Work Phone: [facility] 02-24-2023 15:21-0400 Body weight 80.[address] Fadia Gordon Work Phone: [facility] 02-24-2023 15:21-0400 Diastolic blood pressure 69 mm[Hg] Dr. Fadia Gordon Work Phone: [facility] 02-24-2023 15:21-0400 Heart rate 70 /min Dr. Fadia Gordon Work Phone: [facility] 02-24-2023 15:21-0400 Respiratory rate 16 /min Dr. Fadia Gordon Work Phone: [facility] 02-24-2023 15:21-0400 SaO2% (BldA) [Mass fraction] 96 % Dr. Fadia Gordon Work Phone: [facility] 02-24-2023 15:21-0400 Systolic blood pressure 138 mm[Hg] Dr. Fadia Gordon Work Phone: [facility] 08-03-2022 14:10-0500 Diastolic blood pressure 96 mm[Hg] Dr. Fadia Gordon Work Phone: [facility] 08-03-2022 14:10-0500 Systolic blood pressure 161 mm[Hg] Dr. Fadia Gordon Work Phone: [facility] 06-02-2022 10:25-0500 Body temperature 98.01 [degF] Michelet Farmer BUSINESS DEVELOPMENT SALES EXECUTIVE.[employer] Work Phone: [facility] 06-02-2022 10:25-0500 Body weight 81.19 kg [place] Farmer BUSINESS DEVELOPMENT SALES EXECUTIVE.[employer]TER [employer] Work Phone: [facility] 06-02-2022 10:25-0500 Diastolic blood pressure 83 mm[Hg] Michelet Farmer BUSINESS DEVELOPMENT SALES EXECUTIVE.SMELTER [employer]ER Work Phone: [facility] 06-02-2022 10:25-0500 Heart rate 71 /min [place] Farmer BUSINESS DEVELOPMENT SALES EXECUTIVE.SMELTER [employer]ER Work Phone: [facility] 06-02-2022 10:25-0500 Systolic blood pressure 131 mm[Hg] Michelet Farmer BUSINESS DEVELOPMENT SALES EXECUTIVE.SMELTER [employer] Work Phone: [facility] 05-13-2017 10:15-0500 BMI (Body Mass Index) [...] Non-patient / Non-visit Dr. Ernesto geller MD -[facility] Start: 11-09-2024 End: 11-09-[address] Fadia Gordon MD Work Phone: [facility] Work Phone: Start: 11-09-2024 End: 11-09-2024 Patient encounter procedure Suzy EDEN -Outpatient Bone Densitometry Work Phone: Start: 11-09-2024 End: 11-09-2024 ambulatory Suzy Benedict Facility:[facility] Start: 09-14-2024 End: 09-19-2024 Telephone encounter Michelet Farmer APRN.CNP Work Phone: Hematology/Oncology Comment on above: Appointment (/) Start: 06-26-2024 End: 06-30-2024 Refill Michelet Augustinnilesh SANTANASMELTER LINER Work Phone: Hematology/Oncology Comment on above: Refill Request Start: 05-03-2024 ambulatory Ernesto Duarte Facility:[facility] Start: 05-03-2024 End: 05-03-2024 ambulatory [facility] Facility:[facility] Start: 03-29-2024 End: 03-29-2024 ambulatory Suzy Benedict Facility:[facility] Start: 10-19-2023 End: 10-19-[address] Fadia Gordon Work Phone: [facility] Work Phone: Start: 10-19-2023 End: 10-19-[address] Fadia Gordon Work Phone: [facility] Work Phone: Start: 08-17-2023 End: 08-17-[address] Fadia Gordon Work Phone: [facility] Work Phone: Start: 08-13-2023 End: 08-13-[address] Fadia Gordon Work Phone: [facility] Work Phone: Start: 08-13-2023 End: 08-13-[address] Fadia Gordon Work Phone: [facility] Work Phone: Start: 05-07-2023 Non-patient / Non-visit Dr. Gabriel Gordon Work Phone: [facility] Start: 05-07-2023 End: 05-07-[address] Fadia Gordon Work Phone: [facility] Work Phone: Start: 03-17-2023 Non-patient / Non-visit Dr. Gabriel Gordon Work Phone: [facility] Start: 03-17-2023 End: 03-17-[address] Fadia Gordon Work Phone: [facility] Work Phone: Start: 03-17-2023 End: 03-17-[address] [facility] Start: 02-24-2023 End: 02-24-[address] Fadia Gordon Work Phone: [facility] Work Phone: Start: 02-19-2023 End: 02-19-[address] Fadia Gordon Work Phone: [facility] Work Phone: Start: 02-19-2023 End: 02-19-[address] Fadia Gordon Work Phone: [facility] Work Phone: Start: 02-03-2023 End: 02-03-[address] Fadia Gordon Work Phone: [facility] Work Phone: Start: 02-01-2023 Non-patient / Non-visit Dr. Gabriel Gordon Work Phone: [facility] Start: 02-01-2023 End: 02-01-[address] [facility]adia Gordon [facility] Start: 08-04-2022 End: 08-04-[address] Fadia Gordon Work Phone: [facility] Work Phone: Start: 08-04-2022 End: 08-04-[address] Fadia Gordon Work Phone: [facility] Start: 08-03-2022 End: 08-03-[address] Fadia Gordon Work Phone: [facility] Start: 07-29-2022 Non-patient / Non-visit Dr. Gabriel Gordon Work Phone: [facility] Start: 07-29-2022 End: 07-29-[address] Fadia Gordon Work Phone: [facility] Work Phone: Start: 07-29-2022 End: 07-29-[address] Fadia Gordon Work Phone: [facility] Start: 06-02-2022 End: 06-02-2022 ambulatory Michelet Farmer APRN.SMELTER [employer]ER Work Phone: Hematology/Oncology Comment on above: Ductal carcinoma in situ (DCIS) of left breast (Primary Dx); Encounter for screening mammogram for high-risk patient Start: 06-02-2022 End: 06-02-2022 Patient encounter procedure Michelet Farmer BUSINESS DEVELOPMENT SALES EXECUTIVE.[employer] Work Phone: [facility] Start: 05-27-2022 Telephone encounter Michelet galloway APRN.[employer]ER Work Phone: Hematology/Oncology Comment on above: Refill Request Start: 07-22-2012 Evaluation and management of inpatient Dr. Fadia Gordon Work Phone: [facility]- Procedures Date Procedure Procedure Detail Performing Clinician [...] Michael Ward MD Start: 05-14-2015 End: 05-14-2015 TEXTILE KNITTER Michael Ward MD Start: 05-14-2015 End: 05-14-2015 Follow Up [...] RSV Vaccine (1 - 1-dose 75+ series) [facility] Start: 06-28-2024 Advance Directive Discussion Advance Directive Discussion [facility] Start: 02-27-2024 Covid-19 Vaccine ( season) Covid-19 Vaccine () [facility] Start: 02-27-2024 Influenza vaccination Influenza Vacc ine (#1) [facility] Start: 02-26-2022 Influenza vaccination INFLUENZA (#1) [facility] Start: 06-28-2021 ADVANCE DIRECTIVE DISCUSSION ADVANCE DIRECTIVE DISCUSSION [facility] Start: 06-28-2021 DEPRESSION ASSESSMENT DEPRESSION ASS ESSMENT [facility] Start: 12-18-2020 COVID-19 VACCINE (3 - Booster for Pfizer series) COVID-19 VACCINE (3 - Booster for Pfizer series) [facility] Start: 05-15-2019 Lipid panel Lipid Screening [facility] Start: 05-15-2019 LIPID SCREEN LIPID SCREEN [facility] Start: 05-12-2018 End: 05-12-2018 Appointment Appointment [facility] Work Phone: Start: 05-13-2017 End: 05-13-2017 TEXTILE KNITTER TEXTILE KNITTER [facility] Work Phone: Start: 05-13-2017 End: 05-13-2017 Follow Up Appt 1 year Follow Up Appt 1 year [facility] Work Phone: Start: 05-13-2017 End: 05-13-2017 Appointment Appointment [facility] Work Phone: Start: 05-12-2016 End: 05-12-2016 TEXTILE KNITTER TEXTILE KNITTER [facility] Work Phone: Start: 05-12-2016 End: 05-12-2016 Follow Up Appt 1 year Follow Up Appt 1 year [facility] Work Phone: Start: 02-13-2016 BONE DENSITY BONE DENSITY [facility] Start: 02-13-2016 PNEUMOCOCCAL: 65+ (1 - PCV) PNEUMOCOCCAL: 65+ (1 - PCV) [facility] Start: 02-13-2016 Screening for osteoporosis Bone Dens ity Screening [facility] Start: 08-17-2015 DIABETES SCREEN DIABETES SCREEN [facility] Start: 08-17-2015 Diabetes Screening Diabetes Screenin g [facility] Start: 05-14-2015 End: 05-14-2015 Carotid duplex Carotid duplex [facility] Work Phone: Start: 05-14-2015 End: 05-14-2015 TEXTILE KNITTER TEXTILE KNITTER [facility] Work Phone: Start: 05-14-2015 End: 05-14-2015 Follow Up Appt 1 year Follow Up Appt 1 year [facility] Work Phone: Start: 05-15-2014 End: 05-15-2014 *Hepatic Function Panel *Hepatic Function Panel [facility] Work Phone: Start: 05-15-2014 End: 05-15-2014 TEXTILE KNITTER TEXTILE KNITTER [facility] Work Phone: Start: 05-15-2014 End: 05-15-2014 Follow Up Appt 1 year Follow Up Appt 1 year [facility] Work Phone: Start: 05-15-2014 End: 05-15-2014 Lipid panel [AGGREGATE] *Lipid Profile CC PCP [facility] Work Phone: Start: 08-22-2013 Colonoscopy COLONOSCOPY [facility] Start: 08-22-2013 COLORECTAL CANCER SCREENING COLORECTAL CANCER SCREENING [facility] Start: 08-22-2013 Screening for malign ant neoplasm of colon [facility] Start: 05-12-2013 End: 05-12-2013 TEXTILE KNITTER TEXTILE KNITTER [facility] Work Phone: Start: 05-12-2013 End: 05-12-2013 Follow Up Appt 1 year Follow Up Appt 1 year [facility] Work Phone: Start: 06-01-2012 End: 06-01-2012 Follow Up Appt 1 year Follow Up Appt 1 year [facility] Work Phone: Start: 03-25-2012 End: 03-25-2012 24 hour holter monitor 24 hour holter monitor [employer] Work Phone: Start: 03-25-2012 End: 03-25-2012 Echocardiography Echocardiogram (complete) [employer] Work Phone: Start: 03-25-2012 End: 03-25-2012 Follow Up Appt 2 months Follow Up Appt 2 months [employer] [facility] Bianca randolph [facility] Work Phone: Start: 03-25-2012 End: 03-25-2012 Stress Echocardiogram (treadmill) Stress Echocardiogram (treadmill) [employer] Work Phone: Start: 2001 SHINGRIX VACCINE (1 of 2) WHARTON GRIX VACCINE (1 of 2) [facility] Start: 02-13-1996 COLOGUARD (FIT-DNA) COLOGUARD (FIT-D NA) [facility] Start: 02-13-[address] COLONOGRAPHY [facility] Start: 02-13-1996 FECAL OCCULT BLOOD FECAL OCCULT BLOO D [facility] Start: 02-13-1996 LIPID SCREEN LIPID SCREEN [facility] Start: 02-13-1996 Screening for malign ant neoplasm of colon [facility] Start: 02-13-1996 SIGMOIDOSCOPY SIGMOIDOSCOPY [facility] Start: 1991 Mammography MAMMOGRAM [facility] Start: 1991 Screening for malign ant neoplasm of breast Mammogram Screening [facility] Start: 1970 Urine microalbumin profile [facility] Start: 1969 Anxiety Screening Anxiety Screening [facility] Start: 1969 Depression Screening Depression Scre ening [facility] Start: 1969 HEPATITIS C SCREENING HEPATITIS C [facility] Start: 1969 Hepatitis C screening Hepatitis C [facility] End: 07-02-2023 WALTER SCREENING W MERY [facility] SCREENING W [facility] Radiology Routine Ductal carcinoma in situ (DCIS) of left breast Encounter for screening mammogram for high-risk patient 1 Occurrences starting 06/02/2022 until 07/02/2023 [facility] Work Phone: Comment on above: 1 Occurrences starti ng 06/02/2022 until 07/02/2023 Patient Education METABOLIC+SYND DAWSON+X, HEART+HEALTHY+DIET [facility] Work Phone: Carotid arteries [facility] Payers Date Payer Category Payer Unknown [id number] 2024 Self-pay [id number] 2023 Medicare (Managed Care) [id number] 2021 Medicare [id number] 2020 Private Health Insurance [id number] 2012 Unknown [id number] 2006 Unknown LUIS ENRIQUE [id number] Unknown [id number] [id number] [id number] Unknown [id number] [id number] [id number] Unknown [id number] 2.16.8 [id number] Unknown [id number] 2.16.8 [id number] Unknown [id number] 2.16.8 [id number] Unknown [id number] 2.16.8 [id number] Social History Date Type Detail Facility Start: 09-05-2019 End: 03-10-2023 Tobacco smoking status NHIS Never smoked tobacco [facility] Start: 09-05-2019 Tobacco use and exposure Smokeless tobacco non-user [facility] Start: 05-07-2021 End: 07-08-2023 Alcohol intake Not Asked [facility] Start: 1950 Sex Assigned At Not on file C [facility] Start: 05-16-2020 End: 05-16-2020 Tobacco smoking status LAIS Unknown if ever smoked [facility] Start: 12-05-2019 Non-smoker [facility] Start: 1950 Sex Assigned At Female W [facility] Start: 07-08-2023 End: 01-10-2024 History of Social function [facility] Start: 07-08-2023 End: 01-10-2024 Tobacco use panel [facility] National Score (1-100), lower number is lower risk 40 [facility] Medical Equipment Procedure Code Equipment Code [...] Start: 08-04-2019 Bare-metal carot id artery stent [id number] FDA Start: 04-06-2023 SEALANT,FLOSEAL HEMOSTATIC 5ML FDA [...] encount er Note Noted. Michelet Farmer APRN.CNP [facility] 09-19-2024 Miscellaneous Notes Formattin g of [...] mamm last year 08/13/2023, retrieved report from [facility] ,scanned into our system. Pt. States [...] Alem Brown LPN documented in this encounter [facility] 09-19-2024 Telephone encount er Note Pt. Says to thank Michelet for all her care, if down the road any issues with her breasts crop up, she will be sure to call office and schedule appt. Alem Brown LPN [facility] 09-19-2024 Telephone encount er Note Noted. Michelet Farmer APRN.SURI [facility] 09-19-2024 Telephone encount er Note Spoke with pt. She states she did have her mamm last year 08/13/2023, retrieved report from [facility] ,scanned into our system. Pt. States [...] she doesn't have to. Alem Brown LPN [facility] 09-19-2024 Telephone encount er Note Spoke w pt and he said he would give message to call back and schedule. Orquidea Lr [facility] 09-14-2024 Telephone encount er Note Message left with pts. for pt. To call and schedule appt.sometime in September. Alem Brown LPN [facility] 06-26-2024 Telephone encount er Note Prescription [...] Brown LPN June 26, 2024 12:12 PM [facility] 06-26-2024 Miscellaneous Notes Formattin g of this [...] 2024 12:12 PM documented in this encounter [facility] 06-02-2022 History of Presen t illness [...] ER (clone 6F11) positive, >95%, strong intensity [place] (clone 16/1E2) positive, >95%, strong intensity Her-2Neu [...] Ancillary Studies from previous specimen ([id number] / [id number]): ER - positive (>95%, strong intensity) NJ - positive (>95%, strong intensity) Her2 naga [...] of Menopause 47 Do you have regular stucco mason No examinations and PAP smears? Date of [...] Yes Type of alcohol: RARELY RADIATION:Received at [facility]. Current therapy:Tamoxifen Began after radiation September [...] Mammogram due 2022-pt. has this done at [facility]. - Follow up in 6 months. - Pt. aware to call office with any questions/concerns. The patient indicates understanding of these issues and agrees with the plan. All documentation from previous visit of 05/07/21-Dr. Walker/myself was copied and pasted, documentation has been reviewed and edited as necessary for today's visit. Michelet Farmer APRN.SURI documented in this encounter [facility] 05-28-2022 Miscellaneous Notes Formattin g of this note might be different from the original. Pt. Notified rx sent to pharmacy. Alem Marquez LPN The following approved medication requests have been transmitted electronically. Requested Prescriptions Signed Prescriptions Disp Refills tamoxifen (NOLVADEX) 20 mg tablet 30 tablet 0 Sig: Take 1 tablet (20 mg) by mouth once daily. Authorizing Provider: MICHELET FARMER APRN.SMELTER LINER Scheduled next Wednesday. Patient stated she only [...] Sheri García LPN documented in this encounter [facility] Evaluation note Diagnosis Ductal carcinoma in situ (DCIS) of left breast- Primary Encounter for screening mammogram for high-risk patient [facility] Diagnosis Onset Date Resolution Status 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 Bilateral carotid artery stenosis resolved [facility] Work Phone: Evaluation note* Diagnosis Onset Date Resolution Status Recurrent stenosis of left carotid artery acute [facility] Work Phone: Evaluation note* Diagnosis Onset Date Resolution Status Recurrent stenosis of left carotid artery acute Bilateral carotid artery stenosis chronic [facility] Work Phone: Evaluation note* Diagnosis Onset Date Resolution Status Recurrent stenosis of left carotid artery acute 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 [facility] Work Phone: Evaluation noteNo assessment information available [facility] Work Phone: Reason for referral [...] Michelet Coy APRN.CNP [address] [place] [address] [facility] [address] [place] [address] Referral ID Status Reason Start Date Expiration Date Visits Requested Visits Authorized [id number] Authorized Auto-Generat ed Referral 06/02/2022 07/02/2023 1 [facility]No reason for referral information availableWAvita Health System [facility] Work Phone: Chief Complaint and Reason for Visit Chief Complaint BILAT CAROTID STENOS IS Yearly Breast Check/Mammo/US 07/29 [facility] Reason for Visit Ductal carcinoma in [...] Will No August 03 3:03pm Power of Pocketed Spring Machine Operator No August 03, 2019 3:03pm Advance Directive Response Recorded Date/ Time Living Will No August 03 4:03pm Power of Pocketed Spring Machine Operator No August 03, 2019 4:03pm Advance Directive Response Recorded Date/ Time Living Will No March 10, 2023 3:07pm Power of Pocketed Spring Machine Operator No February 3:07pm Advance Directive Response Recorded Date/ Time Living Will No April 06 10:07am Power of Pocketed Spring Machine Operator No April 06, 2023 10:07am Advance Directive Response Recorded Date/ Time Living Will No April 06 11:07am Power of Pocketed Spring Machine Operator No April 06, 2023 11:07am Summary Purpose Additional Source Comments Source Comments (unrecognize d section and content) In the event this informatio n is protected by the Federal Confidentiality of Alcohol and Drug Abuse Patient Records regulations: The Federal rules restrict any use of the information to criminally investigate or prosecute any alcohol or drug abuse patient.[facility] the event this information is protected by the Federal Confidentiality of Alcohol and Drug Abuse Patient Records regulations: The Federal rules restrict any use of the information to criminally investigate or prosecute any alcohol or drug abuse patient.[facility] the event this information is protected by the Federal Confidentiality of Alcohol and Drug Abuse Patient Records regulations: The Federal rules restrict any use of the information to criminally investigate or prosecute any alcohol or drug abuse patient.[facility] the event this information is protected by the Federal Confidentiality of Alcohol and Drug Abuse Patient Records regulations: The Federal rules restrict any use of the information to criminally investigate or prosecute any alcohol or drug abuse patient.[facility] Reason for Visit (unrecogniz ed section and content) Reason Comments Refill Request Reason Comments Established Patient Reason Comments Appointment Care Teams (unrecognized sec tion and content) Staff Research Scientist Relationship Specialty Start Date End Date Fadia Gordon PCP - General Family Medicine 07/11/12 Staff Research Scientist Relationship Specialty Start Date End Date Fadia [...] Dr. Fadia Gordon MD Primary Care Provider, [facility] Eunice parnell Active Team Status: Active [...] Dr. Ernesto Duarte MD Attending Provider Active MEEK Dugan Referring Provider Active Team Status: Inactive Member Role Status Dates Dr. Fadia Gordon MD Primary Care Provider Active MEEK Dugan Attending Provider, Referring Provid er Active Staff Research Scientist Relationship Specialty Start Date End Date Fadia Gordon PCP - General Family Medicine 07/11/12 Staff Research Scientist Relationship Specialty Start Date End Date Fadia [...] section and content) DATE CREATED AUTHOR 09/20/2024 [facility] DATE CREATED AUTHOR AUTHOR'S ORGANIZ ATION 12/11/2024 [facility] FOR RECORDS PERTAINING TO PATIENTS WHO [...] BE BASED ON THE PRIMARY CLINICAL RECORDS. [employer] provides no warranty or guarantee of the accuracy or completeness of information in this document.
[2025-04-17 22:39] LABS: Hematocrit 31.0 % (37-47); Hemoglobin 10.0 g/dL (12.0-15.0); Mean Corp Hgb Conc 32.3 g/dL (32-36); Mean Corpuscular Volume 94.2 fL (81-99); Mean Platelet Vol. 10.7 fl (6.2-12.0); Platelet Count 367 K/mm3 (150-450); RBC Distribution Width CV 13.0 % (11.6-14.6); RBC Distribution Width SD 44.6 fl (35.1-43.9); Red Blood Count 3.29 M/mm3 (4.2-5.4); White Blood Count 10.6 K/mm3 (4.4-11.0)
[2025-04-17 22:47] LABS: AST(SGOT) 21 U/L (<=31); Alanine Aminotransfer ALT/SGPT 18 U/L (<=34); Albumin, Serum 4.3 g/dL (3.4-4.8); Alkaline Phosphatase 90 U/L (35-104); Anion Gap 14 (5-15); BUN 30 mg/dL (4-19); BUN/Creat Ratio 27.8 RATIO (10-20); Bilirubin, Direct 0.28 mg/dL (0.00-0.30); Calcium,Total 9.5 mg/dL (7.6-11.0); Carbon Dioxide 24.6 mmol/L (21.0-32.0); Chloride 102 mmol/L (98-108); Cholesterol 161 mg/dL (<=200); Creatinine, Urine (random) 231.00 mg/dL (28.00-217.00); Globulin 3.0 g/dL (2.2-4.2); Glucose 153 mg/dL (70-99); Low Density Lipoprotein Calc. 68 mg/dL; Microalbumin,Random Urine 18.4 mg/L (<20 mg/L); Potassium 4.1 mmol/L (3.3-5.1); Triglycerides 128 mg/dL; Very Low Density Lipoprotein 26 mg/dL (5-40); Vitamin D,25 Hydroxy 15.1 ng/mL (30-100); cholesterol:hdl ratio screen 2.27
== END | disposition home or self-care (01) ==
PROVIDERS: PCP Family Medicine; Visit Provider Family Medicine
DX: E11.59 Type 2 diabetes mellitus with other circulatory complications (principal); Z78.0 Asymptomatic menopausal state
CPT/HCPCS: 36415; 80053; 80061; 82043; 82248; 82306; 82570; 85027

== ENCOUNTER → 2025-05-17 | Outpatient (CLI) | payer MEDICARE, SELFPAY ==
[2019-08-21 12:53] VITALS: BMI 33.0
--- NOTE | 2025-05-17 09:48 | CDU_ITS ---
Reason For Study Reason For Study: HX Lt ICA TCAR / Rt ICA Occlusion. Rt. Velocities/BP Lt. Velocities/BP Prox CCA 130.2/29.8 cm/sec. Prox CCA 61.3/20.8 cm/sec. Mid CCA 49.4/16.3 cm/sec. Mid CCA 63.7/22.0 cm/sec. Dist CCA 77.8/20.1 cm/sec. Dist CCA 63.47/28.1 cm/sec. Known Rt ICA Occlusion. Lt Prox ICA Stent Noted Prox ECA 143.0/33.4 cm/sec. Pre Stent - 83.2/34.9 cm/s Rt. Vert. 17.7/9.0 cm/sec. Prox Stent - 120.5/45.9 cm/s Mid Stent - 162.2/67.8 cm/s Dist Stent - 162.2/65.6 cm/s Post Stent - 168.8/70.0 cm/s. Mid ICA 160.0/59.1 cm/sec. Dist ICA 82.0/32.7 cm/sec. Lt. ICA/CCA = 2.6. Prox ECA 46.4/15.3 cm/sec. Lt. Vert. 110.7/37.6 cm/sec. Right Extracranial There is homogeneous, smooth atherosclerotic plaque noted in the right common carotid artery. There is heterogeneous, irregular atherosclerotic plaque noted in the right internal carotid artery. Known Rt ICA Occlusion / HX CEA. There is intimal thickening but no significant atherosclerotic plaque noted in the right external carotid artery. Antegrade flow is noted in the right vertebral artery. Left Extracranial There is intimal thickening but no significant atherosclerotic plaque noted in the left common carotid artery. There is heterogeneous, irregular atherosclerotic plaque noted in the left internal carotid artery. HX Lt ICA TCAR. The left external carotid artery is not well visualized. Antegrade flow is noted in the left vertebral artery. Procedure Carotid Duplex [id number]. This is a Carotid Duplex examination using B-mode, color flow and specral Doppler. The exam was diagnostic. Exam performed in department. VL/Carotid Duplex Ultrasound Interpretation Summary Occlusion of the right extracranial internal carotid. Mild (<70%) stenosis left extracranial internal carotid. Patent and antegrade vertebrals bilaterally. Ordering Physician: Suzy Benedict Referring Physician: Sheela Mackey Performed By: Bobby Ingram RVT
== END | disposition home or self-care (01) ==
LOC: CVS 09:47
PROVIDERS: PCP Family Medicine; Referring Provider Physician Assistant; Visit Provider Physician Assistant
DX: Z48.812 Encounter for surgical aftercare following surgery on the circulatory system (principal); I65.23 Occlusion and stenosis of bilateral carotid arteries
CPT/HCPCS: 93880